=== PATIENT | female | born 1960 | race Caucasian/White ===

== ENCOUNTER 2016-05-22 08:53 | Inpatient (IN) ==
[2016-05-22 09:52] LABS: Bilirubin,Urine Negative (Negative); Blood,Urine Large (Negative); Clarity,Urine Cloudy (Clear); Color,Urine Red (Yellow); Glucose,Urine (UA) Normal (Normal); Ketones,Urine Negative (Negative); Leukocyte Esterase,Urine Large (Negative); Nitrite,Urine Negative (Negative); Protein,Urine 100 mg/dL (Neg-Trace); Specific Gravity,Urine 1.017 (1.010-1.025); Urobilinogen,Urine Normal (Normal)
[2016-05-22 10:00] LABS: Basophils % 0.4 %; Eosinophils # 0.1 K/mcL (0.0-0.6); Eosinophils % 1.2 %; Hematocrit 34.9 % (35.3-44.9); Hemoglobin 11.4 g/dL (11.5-15.4); Immature Granulocytes % 0.4 % (0-4); Immature Platelets 2.6 % (1.1-6.1); Lymphocytes # 1.8 K/mcL (0.6-4.6); Lymphocytes % 18.1 %; Mean Corpuscular HGB Conc 32.7 g/dL (31.6-35.5); Mean Corpuscular Hemoglobin 31.1 pg (28.0-33.3); Mean Corpuscular Volume 95.4 fL (83.0-100.0); Mean Platelet Volume 9.7 fL (9.4-12.4); Monocytes % 10.3 %; Neutrophils # 6.8 K/mcL (1.6-8.9); Platelet Count 298 K/mcL (140-400); Red Blood Count 3.66 M/mcL (3.82-4.97); Red Cell Distribution Width 13.8 % (11.5-14.5); Segmented Neutrophils % 69.6 %
[2016-05-22 10:05] LABS: INR 1.7
[2016-05-22 10:06] LABS: Prothrombin Time 18.5 Seconds (9.4-12.1)
[2016-05-22 10:08] LABS: Activated Partial Thrombo Time 44.2 Seconds (26.0-36.0)
[2016-05-22 10:21] LABS: BUN/Creatinine Ratio 25 (6-26); Blood Urea Nitrogen 19 mg/dL (7-20); Calcium 9.8 mg/dL (8.6-10.8); Carbon Dioxide 28 mEq/L (19-29); Chloride 102 mEq/L (98-109); Glucose 102 mg/dL (70-99); Osmolality,Calculated 288 (280-300); Potassium 3.9 mEq/L (3.5-4.5); Sodium 138 mEq/L (136-145); eGFR For African Americans > 60 (> 60); eGFR For Non-African Americans > 60 (> 60)
--- NOTE | 2016-05-22 11:10 | Emergency Department Note ---
Disposition Clinical Impression: Ureteral calculus, left Hydronephrosis Qualifiers: Hydronephrosis type: with renal calculous obstruction Qualified Code(s): N13.2 - Hydronephrosis with renal and ureteral calculous obstruction DVT (deep venous thrombosis) Qualifiers: DVT location: lower extremity Affected thrombotic vein of extremity: femoral Laterality: left Chronicity: acute Qualified Code(s): I82.412 - Acute embolism and thrombosis of left femoral vein Disposition: Admitted As Inpatient Referrals: Yassine Gunn MD [Primary Care Provider] - Forms: ED Satisfaction Letter Female Urogenital HPI - General Chief complaint: ED Extremity Problem,Nontraumatic Stated complaint: DVT, blood in urine/UTI Time Seen by Provider: 05/22/16 09:24 Source: patient Limitations: no limitations Nursing Notes Reviewed: Yes Vital Signs Reviewed: Yes - History of Present Illness Pt Subjective Complaint: other (hematuria) Onset (ago): hour(s) (3) Improves with: none Worsens with: none Urinary Symptoms: hematuria Associated symptoms: Denies: abdominal pain, nausea/vomiting, fever/chills, headaches, , rash, shortness of breath - Related Data Home Medications Medication Instructions Recorded Confirmed BuPROPion XL (24 HR) [Wellbutrin 150 mg PO QAM #0 10/29/14 01/27/16 Xl] Cholecalciferol (Vitamin D3) 50,000 unit PO QWEEK #0 10/29/14 01/27/16 [Vitamin D3] Multivitamin/Iron/Folic Acid 1 each PO QPM #0 10/29/14 01/27/16 [Centrum Complete Multivit Tab] Omeprazole [PriLOSEC] 20 mg PO BID #0 10/29/14 01/27/16 Pravastatin Sodium [Pravachol] 40 mg PO QPM #0 10/29/14 01/27/16 Baclofen 20 mg PO Q8HR PRN 01/11/16 01/27/16 Loratadine [Allergy Relief] 10 mg PO DAILY 01/11/16 01/27/16 Ondansetron ODT [Zofran ODT] 4 mg SL DAILY PRN 01/11/16 01/27/16 Polyethylene Glycol 1000 17 gm PO Q48H 01/11/16 01/27/16 [Polyethylene Glycol] Ranitidine HCl [Zantac] 150 mg PO HS 01/11/16 01/27/16 Naproxen [Naprosyn] 500 mg PO BID 01/27/16 01/27/16 Previous Rx's Medication Instructions Recorded Doxycycline 100 mg PO BID #180 capsule 01/29/16 Aspirin Enteric Coated [Aspirin EC] 325 mg PO BID tablet. 01/30/16 Docusate [Colace] 100 mg PO BID capsule 01/30/16 Ferrous Sulfate 325 mg PO BIDWM tablet 01/30/16 OxyCODONE/APAP 5/325 [Percocet 1 each PO Q4HR PRN #30 tablet 01/30/16 5/325 MG] Cephalexin 500 mg PO BID #14 tablet 05/18/16 Rivaroxaban [Xarelto] 1 dose PO AD 30 Days 05/18/16 Allergies Allergy/AdvReac Type Severity Reaction Status Date / Time dextromethorphan Allergy Difficulty Verified 01/27/16 02:18 [From NyQuil] Breathing doxylamine [From NyQuil] Allergy Difficulty Verified 01/27/16 02:18 Breathing iodine Allergy See Verified 01/27/16 02:18 Comments pregabalin [From Lyrica] Allergy Hallucinati Verified 01/27/16 02:18 ng pseudoephedrine [From NyQuil] Allergy Difficulty Verified 01/27/16 02:18 Breathing codeine AdvReac Nausea Verified 01/27/16 02:18 All systems ED: reviewed and negative except as stated. Constitutional: Denies: fever, chills, weakness Gastrointestinal: Denies: abdominal pain, nausea, vomiting Past Medical History - Past Medical History Source: patient, old records reviewed, obtained from family, nursing notes reviewed Medical history: Reports: GERD, hyperlipidemia, kidney stones, osteoporosis, other Surgical history: Reports: cholecystectomy, other Psychiatric history: Reports: anxiety, depression - Social History Smoking Status: Former smoker Smokeless Tobacco Status: No Alcohol use: Reports: none Drug use: Reports: none Physical Exam - General Limitations: no limitations General appearance: alert - Head Head exam: atraumatic, normocephalic, normal inspection - Eye Eye exam: Present: normal appearance, PERRL, EOMI - Expanded Eye Exam Pupils: Left: reactive - ENT ENT exam: normal exam, normal oropharynx, mucous membranes moist - Expanded ENT Exam External ear exam: Present: normal external inspection Mouth exam: Present: normal external inspection Teeth exam: Present: normal inspection Throat exam: Present: normal inspection - Neck Neck exam: Present: normal inspection, full ROM, trachea midline - Chest Chest inspection: Present: normal inspection, symmetric chest wall rise - Respiratory Respiratory exam: Present: normal lung sounds bilaterally - Cardiovascular Cardiovascular exam: Present: regular rate, normal rhythm, normal heart sounds - Abdominal Exam Abdominal exam: Present: soft, Non-Tender. Absent: tenderness, distention, guarding, rebound, rigidity - Extremities Exam Extremities exam: Present: normal inspection, full ROM. Absent: tenderness, pedal edema - Expanded Upper Extremity Exam Shoulder exam: Present: normal inspection, full ROM Arm exam: Present: normal inspection, full ROM Elbow exam: Present: normal inspection, full ROM Forearm/Wrist exam: Present: normal inspection, full ROM Hand exam: Present: normal inspection, full ROM Vascular exam: Normal: capillary refill, radial pulse - Expanded Lower Extremity Exam Hip/Pelvis exam: Present: normal inspection, full ROM Upper leg exam: Present: normal inspection, full ROM Knee exam: Present: normal inspection, full ROM Lower leg exam: Present: other (left LLE 2+ pitting edema) Ankle exam: Present: normal inspection, full ROM Foot/toe exam: Present: normal inspection, full ROM Neurovascular/Tendon exam: Absent: motor deficit, sensory deficit, tendon deficit - Back Exam Back exam: Present: normal inspection, full ROM. Absent: tenderness - Neurological Exam Neurological exam: Present: alert, oriented X3 - Expanded Neurological Exam Patient oriented to: Present: person, place, time Coma Scale Eye Opening: Spontaneous Coma Scale Motor Response: Obeys Commands Coma Scale Verbal Response: Oriented Coma Scale Total: 15 - Psychiatric Psychiatric exam: Present: normal affect, normal mood - Skin Skin exam: Present: warm, dry, intact, normal color Course - Consultations Consultation #1: dr. elizondo keep NPO, ok to continue Xarelto Time: 11:11 Vital Signs Temperature 97.5 F L 05/22/16 08:58 Pulse Rate 94 05/22/16 08:58 Respiratory Rate 18 05/22/16 08:58 Blood Pressure 99/68 05/22/16 08:58 O2 Sat by Pulse Oximetry 98 05/22/16 08:58 Temperature 97.5 F L 05/22/16 08:58 Pulse Rate 94 05/22/16 08:58 Respiratory Rate 18 05/22/16 08:58 Blood Pressure 99/68 05/22/16 08:58 O2 Sat by Pulse Oximetry 98 05/22/16 08:58 Oxygen Delivery Oxygen Delivery Room Air Urogenital-Female - Differential Diagnosis Likely: urinary tract infection, ruptured ovarian cyst, cystitis, dysmenorrhea, ovarian torsion - Medical Records Medical records reviewed: Yes I reviewed the patient's medical records. - Lab Data Lab results reviewed: Yes I reviewed the patient's lab results. Result diagrams: 05/22/16 09:45 05/22/16 09:45 Lab Results 05/22/16 05/22/16 05/22/16 Range/Units 09:37 09:45 09:45 WBC 9.7 (4.3-11.1) K/mcL RBC 3.66 L (3.82-4.97) M/mcL Hgb 11.4 L D (11.5-15.4) g/dL Hct 34.9 L (35.3-44.9) % MCV 95.4 (83.0-100.0) fL MCH 31.1 (28.0-33.3) pg MCHC 32.7 (31.6-35.5) g/dL RDW 13.8 (11.5-14.5) % Plt Count 298 (140-400) K/mcL MPV 9.7 (9.4-12.4) fL Immature Gran % 0.4 (0-4) % Seg Neutrophils % 69.6 % Lymphocytes % 18.1 % Monocytes % 10.3 % Eosinophils % 1.2 % Basophils % 0.4 % Neutrophils # 6.8 (1.6-8.9) K/mcL Lymphocytes # 1.8 (0.6-4.6) K/mcL Monocytes # 1.0 (0.0-1.3) K/mcL Eosinophils # 0.1 (0.0-0.6) K/mcL Basophils # 0.0 (0.0-0.2) K/mcL Immature Plt Fraction 2.6 (1.1-6.1) % PT 18.5 H D (9.4-12.1) Seconds INR 1.7 D APTT 44.2 H (26.0-36.0) Seconds Sodium (136-145) mEq/L Potassium (3.5-4.5) mEq/L Chloride (98-109) mEq/L Carbon Dioxide (19-29) mEq/L BUN (7-20) mg/dL Creatinine (0.57-1.11) mg/dL Est GFR ( Amer) (> 60) Est GFR (Non-Af Amer) (> 60) BUN/Creatinine Ratio (6-26) Glucose (70-99) mg/dL Calculated Osmolality (280-300) Calcium (8.6-10.8) mg/dL Ur Specimen Adequacy See below A Urine Color Red A (Yellow) Urine Clarity Cloudy A (Clear) Urine pH 6.0 (5.0-8.0) pH Units Ur Specific Sylva 1.017 (1.010-1.025) Urine Protein 100 H (Neg-Trace) mg/dL Urine Glucose (UA) Normal (Normal) mg/dL Urine Ketones Negative (Negative) mg/dL Urine Blood Large H (Negative) Urine Nitrite Negative (Negative) Urine Bilirubin Negative (Negative) Urine Urobilinogen Normal (Normal) mg/dL Ur Leukocyte Esterase Large H (Negative) Ur Culture Indicated? YES A (NO) 05/22/16 Range/Units 09:45 WBC (4.3-11.1) K/mcL RBC (3.82-4.97) M/mcL Hgb (11.5-15.4) g/dL Hct (35.3-44.9) % MCV (83.0-100.0) fL MCH (28.0-33.3) pg MCHC (31.6-35.5) g/dL RDW (11.5-14.5) % Plt Count (140-400) K/mcL MPV (9.4-12.4) fL Immature Gran % (0-4) % Seg Neutrophils % % Lymphocytes % % Monocytes % % Eosinophils % % Basophils % % Neutrophils # (1.6-8.9) K/mcL Lymphocytes # (0.6-4.6) K/mcL Monocytes # (0.0-1.3) K/mcL Eosinophils # (0.0-0.6) K/mcL Basophils # (0.0-0.2) K/mcL Immature Plt Fraction (1.1-6.1) % PT (9.4-12.1) Seconds INR APTT (26.0-36.0) Seconds Sodium 138 (136-145) mEq/L Potassium 3.9 (3.5-4.5) mEq/L Chloride 102 (98-109) mEq/L Carbon Dioxide 28 (19-29) mEq/L BUN 19 (7-20) mg/dL Creatinine 0.75 (0.57-1.11) mg/dL Est GFR ( Amer) > 60 (> 60) Est GFR (Non-Af Amer) > 60 (> 60) BUN/Creatinine Ratio 25 (6-26) Glucose 102 H (70-99) mg/dL Calculated Osmolality 288 (280-300) Calcium 9.8 (8.6-10.8) mg/dL Ur Specimen Adequacy Urine Color (Yellow) Urine Clarity (Clear) Urine pH (5.0-8.0) pH Units Ur Specific Sylva (1.010-1.025) Urine Protein (Neg-Trace) mg/dL Urine Glucose (UA) (Normal) mg/dL Urine Ketones (Negative) mg/dL Urine Blood (Negative) Urine Nitrite (Negative) Urine Bilirubin (Negative) Urine Urobilinogen (Normal) mg/dL Ur Leukocyte Esterase (Negative) Ur Culture Indicated? (NO) - Radiology Data Radiology results reviewed: Yes I reviewed the patient's radiology results.
--- NOTE | 2016-05-22 12:29 | Urology - Consult Note ---
Date of Encounter: 05/22/16 Time of Encounter: 12:26 - Assessment and Plan (1) Hydronephrosis Current Visit: Yes Status: Acute Assessment and plan: From a left ureteral stone. Serum creatinine normal. Will resolve after stent placement. Qualifiers: Hydronephrosis type: with renal calculous obstruction Qualified Code(s): N13.2 - Hydronephrosis with renal and ureteral calculous obstruction (2) Ureteral calculus, left Current Visit: Yes Status: Acute Assessment and plan: Patient will need to undergo cystoscopy and left ureteral stent placement which we will perform tomorrow. Urology CN:HPI Consult date: 05/22/16 Reason for consult Urology: Hydronephrosis Requesting physician: Daniel Metzger History of present illness: Winsome is a 55-year-old female well-known to urology for multiple sclerosis and urinary incontinence issues. Patient is a history of kidney stones. She presents to the emergency Department today secondary to gross hematuria after starting blood thinning medication for recent DVT. Patient was found on CT scan to have a mid ureteral left 1 cm stone. On review of prior x-rays the stone was present at least back to January. Patient denies any flank pain. No fevers. Past Med Surg Social Fam HX - Past Medical History Medical history: GERD, hyperlipidemia, kidney stones, osteoporosis, other Psychiatric history: anxiety, depression - Past Surgical History Surgical History: cholecystectomy, other - Social History Smoking Status: Former smoker Smokeless Tobacco Status: No Alcohol use: none Drug use: none - Family History Mother Living Status: Hx Family Cardiac Disorders: Yes Father Family Member Ethnicity: Non- Living Status: Hx Family Cardiac Disorders: Yes (heart diease, [place],) Hx Family Respiratory Disorders: Yes (copd) Hx Family Cancer: Yes (stomach) Hx Family GI Disorders: Yes Hx Family Endocrine Disorder: No Hx Family Neuromuscular Disorders: No Hx Family Neurologic Disorders: No Hx Family HEENT Disorders: No Hx Family Autoimmune Disorders: No Son Living Status: Still Living Hx Family Cardiac Disorders: No Hx Family Respiratory Disorders: No Hx Family Cancer: No Hx Family GI Disorders: No Hx Family Endocrine Disorder: No Hx Family Neuromuscular Disorders: No Hx Family Neurologic Disorders: No Hx Family HEENT Disorders: No Hx Family Autoimmune Disorders: No Medications and Allergies BuPROPion XL (24 HR) [Wellbutrin Xl] 150 mg PO QAM #0 10/29/14 [History] Cholecalciferol (Vitamin D3) [Vitamin D3] 50,000 unit PO QWEEK #0 10/29/14 [ History] Multivitamin/Iron/Folic Acid [Centrum Complete Multivit Tab] 1 each PO QPM #0 10/29/14 [History] Omeprazole [PriLOSEC] 20 mg PO BID #0 10/29/14 [History] Pravastatin Sodium [Pravachol] 40 mg PO QPM #0 10/29/14 [History] Baclofen 20 mg PO Q8HR PRN 01/11/16 [History] Loratadine [Allergy Relief] 10 mg PO DAILY 01/11/16 [History] Ondansetron ODT [Zofran ODT] 4 mg SL DAILY PRN 01/11/16 [History] Polyethylene Glycol 1000 [Polyethylene Glycol] 17 gm PO Q48H 01/11/16 [History] Ranitidine HCl [Zantac] 150 mg PO HS 01/11/16 [History] Naproxen [Naprosyn] 500 mg PO BID 01/27/16 [History] Doxycycline 100 mg PO BID #180 capsule 01/29/16 [Rx] Aspirin Enteric Coated [Aspirin EC] 325 mg PO BID tablet. 01/30/16 [Rx] Docusate [Colace] 100 mg PO BID capsule 01/30/16 [Rx] Ferrous Sulfate 325 mg PO BIDWM tablet 01/30/16 [Rx] OxyCODONE/APAP 5/325 [Percocet 5/325 MG] 1 each PO Q4HR PRN #30 tablet 01/30/16 [Rx] Cephalexin 500 mg PO BID #14 tablet 05/18/16 [Rx] Rivaroxaban [Xarelto] 1 dose PO AD 30 Days 05/18/16 [Rx] Allergies dextromethorphan [From NyQuil] Allergy (Verified 01/27/16 02:18) Difficulty Breathing doxylamine [From NyQuil] Allergy (Verified 01/27/16 02:18) Difficulty Breathing iodine Allergy (Verified 01/27/16 02:18) See Comments "turns skin into poison" pregabalin [From Lyrica] Allergy (Verified 01/27/16 02:18) Hallucinating pseudoephedrine [From NyQuil] Allergy (Verified 01/27/16 02:18) Difficulty Breathing codeine Adverse Reaction (Verified 01/27/16 02:18) Nausea Review of Systems - Constitutional no chills - EENT Nose, mouth and throat: no dizziness - Cardiovascular no chest pain - Respiratory no cough - Gastrointestinal no abdominal pain - Musculoskeletal no back pain - Integumentary no erythema Exam Initial Vital Signs Temp Pulse Resp BP Pulse Ox 97.5 F L 94 18 99/68 98 05/22/16 08:58 05/22/16 08:58 05/22/16 08:58 05/22/16 08:58 05/22/16 08:58 - General physical appearance Present: well developed - Eyes Present: PERRL - ENT Present: normal nares - Neck Present: no masses - Respiratory Present: normal respiratory effort - Cardiovascular Cardiovascular exam IM: RRR Urology Results - Labs 05/22/16 09:45 05/22/16 09:45 Abnormal lab results RBC 3.66 M/mcL (3.82-4.97) L 05/22/16 09:45 Hgb 11.4 g/dL (11.5-15.4) L D 05/22/16 09:45 Hct 34.9 % (35.3-44.9) L 05/22/16 09:45 PT 18.5 Seconds (9.4-12.1) H D 05/22/16 09:45 APTT 44.2 Seconds (26.0-36.0) H 05/22/16 09:45 Glucose 102 mg/dL (70-99) H 05/22/16 09:45 Ur Specimen Adequacy See below A 05/22/16 09:37 Urine Color Red (Yellow) A 05/22/16 09:37 Urine Clarity Cloudy (Clear) A 05/22/16 09:37 Urine Protein 100 mg/dL (Neg-Trace) H 05/22/16 09:37 Urine Blood Large (Negative) H 05/22/16 09:37 Ur Leukocyte Esterase Large (Negative) H 05/22/16 09:37 Ur Culture Indicated? YES (NO) A 05/22/16 09:37 Diabetes panel 05/22/16 Range/Units 09:45 Sodium 138 (136-145) mEq/L Potassium 3.9 (3.5-4.5) mEq/L Chloride 102 (98-109) mEq/L Carbon Dioxide 28 (19-29) mEq/L BUN 19 (7-20) mg/dL Creatinine 0.75 (0.57-1.11) mg/dL Glucose 102 H (70-99) mg/dL Calcium 9.8 (8.6-10.8) mg/dL Calcium panel 05/22/16 Range/Units 09:45 Calcium 9.8 (8.6-10.8) mg/dL Pituitary panel 05/22/16 Range/Units 09:45 Sodium 138 (136-145) mEq/L Potassium 3.9 (3.5-4.5) mEq/L Chloride 102 (98-109) mEq/L Carbon Dioxide 28 (19-29) mEq/L BUN 19 (7-20) mg/dL Creatinine 0.75 (0.57-1.11) mg/dL Glucose 102 H (70-99) mg/dL Calcium 9.8 (8.6-10.8) mg/dL Adrenal panel 05/22/16 Range/Units 09:45 Sodium 138 (136-145) mEq/L Potassium 3.9 (3.5-4.5) mEq/L Chloride 102 (98-109) mEq/L Carbon Dioxide 28 (19-29) mEq/L BUN 19 (7-20) mg/dL Creatinine 0.75 (0.57-1.11) mg/dL Glucose 102 H (70-99) mg/dL Calcium 9.8 (8.6-10.8) mg/dL All other labs normal. - Imaging CT scan - abdomen: image reviewed CT scan - pelvis: image reviewed Consult Discharge Plan - Plan Referrals: Yassine Gunn MD [Primary Care Provider] -
[2016-05-22] MEDS ORDERED: Acetaminophen 325 MG TABLET PO PRN (13:52)
[2016-05-22] MEDS ORDERED: Naloxone 0.4 MG/ML INJ IVP PRN (13:52)
[2016-05-22] MEDS ORDERED: Ondansetron ODT 4 MG TAB.RAPDIS SL PRN (14:02)
[2016-05-22] MEDS ORDERED: Baclofen 10 MG TABLET PO PRN (14:02)
--- NOTE | 2016-05-22 14:23 | Internal Med History&Physical ---
<Noemy Wang E - Last Filed: 05/22/16 20:03> Internal Medicine - H&P: HPI History of present illness: Ms. Obrien is a 55 year old female Internal Medicine - H&P: Meds BuPROPion XL (24 HR) [Wellbutrin Xl] 150 mg PO QAM #0 10/29/14 [History] Cholecalciferol (Vitamin D3) [Vitamin D3] 50,000 unit PO GUTIERREZ #0 10/29/14 [ History] Multivitamin/Iron/Folic Acid [Centrum Complete Multivit Tab] 1 each PO QPM #0 10/29/14 [History] Omeprazole [PriLOSEC] 20 mg PO BID #0 10/29/14 [History] Pravastatin Sodium [Pravachol] 40 mg PO QPM #0 10/29/14 [History] Baclofen 20 mg PO Q8HR PRN 01/11/16 [History] Loratadine [Allergy Relief] 10 mg PO DAILY 01/11/16 [History] Ondansetron ODT [Zofran ODT] 4 mg SL DAILY PRN 01/11/16 [History] Polyethylene Glycol 1000 [Polyethylene Glycol] 17 gm PO Q48H 01/11/16 [History] Ranitidine HCl [Zantac] 150 mg PO HS 01/11/16 [History] Doxycycline 100 mg PO BID #180 capsule 01/29/16 [Rx] Docusate [Colace] 100 mg PO BID capsule 01/30/16 [Rx] Ferrous Sulfate 325 mg PO BIDWM tablet 01/30/16 [Rx] Cephalexin 500 mg PO BID #14 tablet 05/18/16 [Rx] Rivaroxaban [Xarelto] 15 mg PO BID 05/22/16 [History] Allergies dextromethorphan [From NyQuil] Allergy (Verified 01/27/16 02:18) Difficulty Breathing doxylamine [From NyQuil] Allergy (Verified 01/27/16 02:18) Difficulty Breathing iodine Allergy (Verified 01/27/16 02:18) See Comments "turns skin into poison" pregabalin [From Lyrica] Allergy (Verified 01/27/16 02:18) Hallucinating pseudoephedrine [From NyQuil] Allergy (Verified 01/27/16 02:18) Difficulty Breathing codeine Adverse Reaction (Verified 01/27/16 02:18) Nausea All Systems PM: A 10-system review of systems was performed and is negative for pertinent findings except as documented above in the HPI. - Constitutional Vitals: Temp Pulse Resp BP Pulse Ox 98.2 F 82 16 96/56 95 05/22/16 19:46 05/22/16 19:46 05/22/16 19:46 05/22/16 19:46 05/22/16 19:46 Internal Med - H&P Results - Labs CBC & Chem 7: 05/22/16 09:45 05/22/16 09:45 - Attending Attestation Patient seen and examined, agree with assessment and plan of BART Garner. Patient with MS, recent DVT on xarelto, nephrolithiasis and UTI. Appreciate urology assistance with managing renal stone. Treat UTI and continue xarelto for DVT treatment. <Ivone Garner M - Last Filed: 05/22/16 22:42> Date of Encounter: 05/22/16 Time of Encounter: 14:16 Assessment and Plan (1) Ureteral calculus, left Current visit: Yes Status: Acute CT Abd/Pelvis showed moderate to severe obstructive uropathy in the left renal collecting system due to an 11mm calculus in the proximal to mid left ureter. Urology, Dr. Bills consulted and plan Cystoscopy with left ureteral stent placement tomorrow. NPO after midnight for procedure. IV fluids 0.9NS at 100mL/hr. (2) UTI (urinary tract infection) Current visit: Yes Status: Suspected Patient was diagnosed with a UTI during previous visit to ED on 05/18 and started on Keflex, however Cultures had no growth. Patient with obstructive uropathy due to stone. Will treat with Cefepime as previous UTIs grew pseudomonas. Qualifiers: Urinary tract infection type: acute cystitis Hematuria presence: with hematuria Qualified Code(s): N30.01 - Acute cystitis with hematuria (3) Multiple sclerosis Current visit: No Status: Chronic Patient with diagnosis of progressive multiple sclerosis with sequela of urinary retention, paresthesias (tingling in right arm), weakness, and gait disturbance. Patient follows with Dr. David in Neurology, but is not on any medication for her MS. Patient also has difficulty with fine motor skills and ADLs with feeding herself. PT/OT ordered to assist planning accommodations for patient while hospitalized. (4) Pressure ulcer of coccygeal region, stage 3 Current visit: No Status: Acute Patient follows with Wound Care as an outpatient. Consult to Wound care team. (5) Hydronephrosis Current visit: Yes Status: Acute CT Abd/Pelvis showed moderate to severe obstructive uropathy in the left renal collecting system due to an 11mm calculus in the proximal to mid left ureter. Urology, Dr. Bills consulted and plan Cystoscopy with left ureteral stent placement tomorrow. NPO after midnight for procedure. IV fluids 0.9NS at 100mL/hr. Cefepime 2g TID Qualifiers: Hydronephrosis type: with renal calculous obstruction Qualified Code(s): N13.2 - Hydronephrosis with renal and ureteral calculous obstruction (6) DVT (deep venous thrombosis) Current visit: Yes Status: Acute Patient recently diagnosed with LLE DVT on 05/18 and started on Xarelto. Patient with hematuria related to kidney stone and decrease in Hgb from 12.9 on 05/18 to 11.4 today. No indication for transfusion. Patient denies any other symptoms of bleeding. Continue Xarelto. Check CBC and coags tomorrow morning. Qualifiers: DVT location: lower extremity Affected thrombotic vein of extremity: femoral Laterality: left Chronicity: acute Qualified Code(s): I82.412 - Acute embolism and thrombosis of left femoral vein (7) DVT prophylaxis Current visit: Yes Status: Acute Up to chair BID. Patient with acute DVT in LLE, on Xarelto anti-embolic stocking to right leg Continue Xarelto. Internal Medicine - H&P: HPI Chief complaint: blood in the urine Admitted From: Emergency Dept Plans for Post Hospital Care: Transfer Care Home Facility History of present illness: Ms. Obrien is a 55 year old female with multiple sclerosis, hyperlipidemia, acid reflux, stage III pressure ulcer, history of kidney stones, recent diagnosis of left lower extremity DVT started on Zaroxolyn May 18 who was brought to the emergency department today by her family with concerns for mild confusion and increased swelling in the left lower extremity. Patient's family reports that in the middle the night last night she woke up and said get these dogs off me, however there are no dogs and house. She and oriented however confused from time to time, which is unlike her according to the family. Patient was diagnosed with a DVT in her left lower extremity on Friday, and the family reports that her swelling seemed to be worse which coupled with the confusion caused them to bring her back to the emergency department. They report that she has had blood in her urine since Friday. Patient denies any pain, lightheadedness, or dizziness, shortness of breath, palpitations. Patient denies any pain or burning with urination, denies any chills, sweats. Patient's brother reports patient has been running a low-grade fever. Evaluation in the emergency department included a CT of the abdomen and pelvis which revealed a moderate to severe obstructive uropathy within the left renal collecting system due to an 11 mm calculus in the proximal to mid left ureter. PT was 18.5, INR was within normal limits at 1.7, PTT was elevated at 44.2, consistent with patient's use of Xarelto. Patient was mildly anemic with hemoglobin of 11.4, which is down from her previous result of 12.9 on Friday. Urology was consult said, Dr. Bills saw the patient and plans for cystoscopy with left ureteral stent placement tomorrow. Patient was given a dose of ceftriaxone for presumed UTI. On exam, patient was alert and oriented, she was quiet and did not elaborate in her answers to my questions. She had mild tenderness over her bladder. Left lower extremity was edematous compared to right, but without tenderness, or erythema. She had a stage III decubitus ulcer on her right coccyx area, she is following with wound care as an outpatient for this. Heart has regular rate and rhythm, lungs are clear bilaterally to auscultation. Past Med Surg Social Fam HX - Past Medical History Medical history: GERD, hyperlipidemia, kidney stones, osteoporosis, other ( Progressive Multiple Sclerosis) Psychiatric history: anxiety, depression - Past Surgical History Surgical History: cholecystectomy, hip replacement, other (Ureteral stents) - Social History Smoking Status: Former smoker (27 Pack year history) Smokeless Tobacco Status: No Alcohol use: none Drug use: none - Family History Mother Living Status: Hx Family Cardiac Disorders: Yes Father Family Member Ethnicity: Non- Living Status: Hx Family Cardiac Disorders: Yes (heart diease, [place],) Hx Family Respiratory Disorders: Yes (copd) Hx Family Cancer: Yes (stomach) Hx Family GI Disorders: Yes Hx Family Endocrine Disorder: No Hx Family Neuromuscular Disorders: No Hx Family Neurologic Disorders: No Hx Family HEENT Disorders: No Hx Family Autoimmune Disorders: No Son Living Status: Still Living Hx Family Cardiac Disorders: No Hx Family Respiratory Disorders: No Hx Family Cancer: No Hx Family GI Disorders: No Hx Family Endocrine Disorder: No Hx Family Neuromuscular Disorders: No Hx Family Neurologic Disorders: No Hx Family HEENT Disorders: No Hx Family Autoimmune Disorders: No Brother Hx Family Cancer: Yes All Systems PM: A 10-system review of systems was performed and is negative for pertinent findings except as documented above in the HPI. - Constitutional Constitutional: fever(s), no chills, no night sweats - Cardiovascular Cardiovascular ROS IM: no chest pain, no diaphoresis, no dyspnea, no lightheadedness, no palpitations, no syncope - Respiratory Respiratory: no cough, no dyspnea, no wheezing, no excessive phlegm production - Gastrointestinal Gastrointestinal: no abdominal pain, no diarrhea, no hematemesis, no hematochezia, no melena, no nausea, no vomiting - Genitourinary Genitourinary: difficulty urinating (patient reports urinary retention), hematuria, no change in urinary stream, no dysuria, no flank pain - Musculoskeletal Musculoskeletal ROS IM: tingling (right arm - chronic), no numbness - Integumentary Integumentary IM: no rash, no unusual bruising - Neurological Neurological ROS: tingling (right arm - chronic), weakness (generalized - chronic ), no confusion, no convulsions, no focal weakness, no numbness, no tremor(s) - Hematologic/Lymphatic Hematologic/Lymphatic: easy bleeding - Constitutional Vitals: Temp Pulse Resp BP Pulse Ox 97.5 F L 73 18 119/79 99 05/22/16 08:58 05/22/16 12:59 05/22/16 13:58 05/22/16 13:58 05/22/16 12:59 General appearance: Present: A&O X 3, pleasant, no acute distress - Head Head exam: Present: atraumatic, normocephalic - Eye Eye exam: Present: PERRL, conjuntiva pink, sclera anicteric Pupils: Present: PERRL - Neck Neck exam general surgery: Present: supple, trachea midline. Absent: lymphadenopathy - Respiratory Respiratory exam: Present: CTAB. Absent: accessory muscle use, rales, rhonchi, wheezes - Cardiovascular Cardiovascular exam: Present: RRR, +S1, +S2. Absent: diastolic murmur, gallop, rubs, systolic murmur - GI/Abdominal GI/Abdominal exam: Present: normal bowel sounds, soft, tenderness (mild tenderness over bladder), no peritoneal signs. Absent: distended - Extremities Exam Extremities exam: Present: warm, radial pulses palpable and symetrical. Absent : calf tenderness, cyanotic Additional comments: LLE edema, with noticeable difference in Left thigh swelling greater than right. - Neurological Exam Neurological exam: Present: alert, oriented X3, strengths equal and symetr throughout (Generalized weakness - strength 4/5 in BUE). Absent: facial droop, speech deficit - Expanded Neurological Exam Neuro motor strength exam: LUE: 4, RUE: 4, LLE: 4, RLE: 4 - Skin Skin exam: Present: dry, pallor Additional comments: stage 3 decubitus ulcer on right coccyx area Internal Med - H&P Results - Labs CBC & Chem 7: 05/22/16 09:45 05/22/16 09:45 Labs: All Lab Results (24 Hours) 05/22/16 05/22/16 05/22/16 Range/Units 09:37 09:45 09:45 WBC 9.7 (4.3-11.1) K/mcL RBC 3.66 L (3.82-4.97) M/mcL Hgb 11.4 L D (11.5-15.4) g/dL Hct 34.9 L (35.3-44.9) % MCV 95.4 (83.0-100.0) fL MCH 31.1 (28.0-33.3) pg MCHC 32.7 (31.6-35.5) g/dL RDW 13.8 (11.5-14.5) % Plt Count 298 (140-400) K/mcL MPV 9.7 (9.4-12.4) fL Immature Gran % 0.4 (0-4) % Seg Neutrophils % 69.6 % Lymphocytes % 18.1 % Monocytes % 10.3 % Eosinophils % 1.2 % Basophils % 0.4 % Neutrophils # 6.8 (1.6-8.9) K/mcL Lymphocytes # 1.8 (0.6-4.6) K/mcL Monocytes # 1.0 (0.0-1.3) K/mcL Eosinophils # 0.1 (0.0-0.6) K/mcL Basophils # 0.0 (0.0-0.2) K/mcL Immature Plt Fraction 2.6 (1.1-6.1) % PT 18.5 H D (9.4-12.1) Seconds INR 1.7 D APTT 44.2 H (26.0-36.0) Seconds Sodium (136-145) mEq/L Potassium (3.5-4.5) mEq/L Chloride (98-109) mEq/L Carbon Dioxide (19-29) mEq/L BUN (7-20) mg/dL Creatinine (0.57-1.11) mg/dL Est GFR ( Amer) (> 60) Est GFR (Non-Af Amer) (> 60) BUN/Creatinine Ratio (6-26) Glucose (70-99) mg/dL Calculated Osmolality (280-300) Calcium (8.6-10.8) mg/dL Ur Specimen Adequacy See below A Urine Color Red A (Yellow) Urine Clarity Cloudy A (Clear) Urine pH 6.0 (5.0-8.0) pH Units Ur Specific [place] 1.017 (1.010-1.025) Urine Protein 100 H (Neg-Trace) mg/dL Urine Glucose (UA) Normal (Normal) mg/dL Urine Ketones Negative (Negative) mg/dL Urine Blood Large H (Negative) Urine Nitrite Negative (Negative) Urine Bilirubin Negative (Negative) Urine Urobilinogen Normal (Normal) mg/dL Ur Leukocyte Esterase Large H (Negative) Ur Culture Indicated? YES A (NO) 05/22/16 Range/Units 09:45 WBC (4.3-11.1) K/mcL RBC (3.82-4.97) M/mcL Hgb (11.5-15.4) g/dL Hct (35.3-44.9) % MCV (83.0-100.0) fL MCH (28.0-33.3) pg MCHC (31.6-35.5) g/dL RDW (11.5-14.5) % Plt Count (140-400) K/mcL MPV (9.4-12.4) fL Immature Gran % (0-4) % Seg Neutrophils % % Lymphocytes % % Monocytes % % Eosinophils % % Basophils % % Neutrophils # (1.6-8.9) K/mcL Lymphocytes # (0.6-4.6) K/mcL Monocytes # (0.0-1.3) K/mcL Eosinophils # (0.0-0.6) K/mcL Basophils # (0.0-0.2) K/mcL Immature Plt Fraction (1.1-6.1) % PT (9.4-12.1) Seconds INR APTT (26.0-36.0) Seconds Sodium 138 (136-145) mEq/L Potassium 3.9 (3.5-4.5) mEq/L Chloride 102 (98-109) mEq/L Carbon Dioxide 28 (19-29) mEq/L BUN 19 (7-20) mg/dL Creatinine 0.75 (0.57-1.11) mg/dL Est GFR ( Amer) > 60 (> 60) Est GFR (Non-Af Amer) > 60 (> 60) BUN/Creatinine Ratio 25 (6-26) Glucose 102 H (70-99) mg/dL Calculated Osmolality 288 (280-300) Calcium 9.8 (8.6-10.8) mg/dL Ur Specimen Adequacy Urine Color (Yellow) Urine Clarity (Clear) Urine pH (5.0-8.0) pH Units Ur Specific [place] (1.010-1.025) Urine Protein (Neg-Trace) mg/dL Urine Glucose (UA) (Normal) mg/dL Urine Ketones (Negative) mg/dL Urine Blood (Negative) Urine Nitrite (Negative) Urine Bilirubin (Negative) Urine Urobilinogen (Normal) mg/dL Ur Leukocyte Esterase (Negative) Ur Culture Indicated? (NO) - Diagnostic Studies CT scan - abdomen Additional comments: Abdomen/Pelvis CT 05/22/16 10:13 IMPRESSION: Moderate to severe obstructive uropathy left renal collecting system secondary to 11 mm calculus within the proximal to mid left ureter. Bilateral nonobstructing renal calculi. Healing left-sided rib fractures. D/ / 05/22/2016 11:12:29 Raza Colvin MD / lewis Interpreting Provider: Raza Colvin MD
[2016-05-22] MEDS: Cholecalciferol (D-3) 1,000 UNIT TABLET PO SCH (15:23)
[2016-05-22] MEDS: Cefepime HCl 2,000 MG in D5% in Water (Mini-Bag+) 100 ML IVPB SCH (17:42)
[2016-05-22] MEDS: 0.9 % Sodium Chloride 1,000 ML IVC SCH (17:42)
[2016-05-22] MEDS ORDERED: traZODone 50 MG TABLET PO PRN (19:02)
[2016-05-22] MEDS ORDERED: Famotidine 20 MG TABLET PO SCH (21:00)
--- NOTE | 2016-05-22 21:20 | Anesthesia Evaluation PreOp ---
Date of Encounter: 05/22/16 Time of Encounter: 21:17 - Past History Planned Operation: Cystoscopy, Left Ureteral Stent Placement Cardiac History: Hyperlipidemia Pulmonary History: Former smoker (quit 4 months ago, smoked for 27 years) [employer]ISHING UT[employer] PERSON History: Other (multiple sclerosis) Other Medical History: Renal (kidney stones), GERD, Other (anxiety/depression, pressure ulcer coccygeal region) Anesthesia History: No Prior Anesthetic Complications, Past Anesthesia Alcohol Use: none Drug use: none Medications and Allergies BuPROPion XL (24 HR) [Wellbutrin Xl] 150 mg PO QAM #0 10/29/14 [History] Cholecalciferol (Vitamin D3) [Vitamin D3] 50,000 unit PO GUTIERREZ #0 10/29/14 [ History] Multivitamin/Iron/Folic Acid [Centrum Complete Multivit Tab] 1 each PO QPM #0 10/29/14 [History] Omeprazole [PriLOSEC] 20 mg PO BID #0 10/29/14 [History] Pravastatin Sodium [Pravachol] 40 mg PO QPM #0 10/29/14 [History] Baclofen 20 mg PO Q8HR PRN 01/11/16 [History] Loratadine [Allergy Relief] 10 mg PO DAILY 01/11/16 [History] Ondansetron ODT [Zofran ODT] 4 mg SL DAILY PRN 01/11/16 [History] Polyethylene Glycol 1000 [Polyethylene Glycol] 17 gm PO Q48H 01/11/16 [History] Ranitidine HCl [Zantac] 150 mg PO HS 01/11/16 [History] Doxycycline 100 mg PO BID #180 capsule 01/29/16 [Rx] Docusate [Colace] 100 mg PO BID capsule 01/30/16 [Rx] Ferrous Sulfate 325 mg PO BIDWM tablet 01/30/16 [Rx] Cephalexin 500 mg PO BID #14 tablet 05/18/16 [Rx] Rivaroxaban [Xarelto] 15 mg PO BID 05/22/16 [History] Allergies dextromethorphan [From NyQuil] Allergy (Verified 01/27/16 02:18) Difficulty Breathing doxylamine [From NyQuil] Allergy (Verified 01/27/16 02:18) Difficulty Breathing iodine Allergy (Verified 01/27/16 02:18) See Comments "turns skin into poison" pregabalin [From Lyrica] Allergy (Verified 01/27/16 02:18) Hallucinating pseudoephedrine [From NyQuil] Allergy (Verified 01/27/16 02:18) Difficulty Breathing codeine Adverse Reaction (Verified 01/27/16 02:18) Nausea - Meds/Allergy Pre-op Review Medications Reviewed: Yes Allergies Reviewed: Yes Beta Blockers on Current Med List: No Anesthesia Results - Labs 05/22/16 09:45 05/22/16 09:45 - Imaging EKG: report reviewed (01/27/2016 SR, NSST abnormality) Anesthesia Exam Vital Signs/O2 Sat, Most Current Temp Pulse Resp BP Pulse Ox 98.3 F 87 16 99/67 95 05/22/16 20:55 05/22/16 20:55 05/22/16 20:55 05/22/16 20:55 05/22/16 20:55 Height: 5'1''/1.55 m Weight: 101 lbs/46 kg NPO (# of Hours): 8 Pain Scale: 3 Pain Scale Used: Numeric (1 - 10) - HEENT Pupil (Motor): EOMI Mallampati: II Teeth: Normal Oral Opening: Greater than 3 - [employer]ISH[employer] UT[employer] PERSON LOC: Oriented [employer] UT[employer] PERSON Motor: Normal RUE, Normal RLE, Normal Face, Deficit LUE, Deficit LLE [employer] UTILITY PERSON Sensory: Normal: RUE, LUE, RLE, LLE, Face - Cardiac Rhythm: Regular Murmur: None - Pulmonary Breath Sounds: bilateral Clear Respiratory Effort: Symmetrical Anesthesia Assess/Plan ASA Score: 3 Modified [place] Scale for Level of Consciousness: Cooperative, oriented, and tranquil Anesthetic Plan: General Monitoring Plan: Standard Monitors Recovery Plan: PACU
[2016-05-22] MEDS: Doxycycline 100 MG CAPSULE PO SCH (22:36)
[2016-05-22] MEDS: *HR* Rivaroxaban 15 MG TABLET PO SCH (22:37)
[2016-05-23] MEDS: Cefepime HCl 2,000 MG in D5% in Water (Mini-Bag+) 100 ML IVPB SCH ×3 (01:47→19:01)
[2016-05-23] MEDS: 0.9 % Sodium Chloride 1,000 ML IVC SCH ×2 (04:30→19:44)
[2016-05-23 05:07] LABS: Basophils # 0.1 K/mcL (0.0-0.2); Basophils % 0.6 %; Eosinophils # 0.2 K/mcL (0.0-0.6); Eosinophils % 2.5 %; Hematocrit 28.8 % (35.3-44.9); Immature Granulocytes % 0.3 % (0-4); Lymphocytes % 23.3 %; Mean Corpuscular HGB Conc 33.3 g/dL (31.6-35.5); Mean Corpuscular Hemoglobin 31.6 pg (28.0-33.3); Mean Corpuscular Volume 94.7 fL (83.0-100.0); Mean Platelet Volume 9.8 fL (9.4-12.4); Monocytes # 0.8 K/mcL (0.0-1.3); Monocytes % 9.6 %; Neutrophils # 5.6 K/mcL (1.6-8.9); Platelet Count 270 K/mcL (140-400); Red Blood Count 3.04 M/mcL (3.82-4.97); Red Cell Distribution Width 13.7 % (11.5-14.5); Segmented Neutrophils % 63.7 %
[2016-05-23 05:10] LABS: Activated Partial Thrombo Time 46.4 Seconds (26.0-36.0)
[2016-05-23 05:12] LABS: INR 2.6; Prothrombin Time 28.8 Seconds (9.4-12.1)
[2016-05-23 05:14] LABS: Hemoglobin 9.6 g/dL (11.5-15.4)
[2016-05-23 05:18] LABS: BUN/Creatinine Ratio 29 (6-26); Blood Urea Nitrogen 19 mg/dL (7-20); Calcium 8.5 mg/dL (8.6-10.8); Carbon Dioxide 21 mEq/L (19-29); Chloride 107 mEq/L (98-109); Glucose 92 mg/dL (70-99); Osmolality,Calculated 282 (280-300); Potassium 3.8 mEq/L (3.5-4.5); Sodium 135 mEq/L (136-145); eGFR For African Americans > 60 (> 60); eGFR For Non-African Americans > 60 (> 60)
--- NOTE | 2016-05-23 06:59 | Urology Progress Note ---
Date of Encounter: 05/23/16 Time of Encounter: 06:59 - Assessment and Plan (1) Hydronephrosis Current Visit: Yes Status: Acute Qualifiers: Hydronephrosis type: with renal calculous obstruction Qualified Code(s): N13.2 - Hydronephrosis with renal and ureteral calculous obstruction (2) Ureteral calculus, left Current Visit: Yes Status: Acute Assessment and plan: to OR today for cysto and left ureteral stent placement. Progress Note Narrative: HD 2 with left ueteral stone and hematuria. no pain overnight. Objective Initial Vital Signs Temp Pulse Resp BP Pulse Ox 97.5 F L 94 18 99/68 98 05/22/16 08:58 05/22/16 08:58 05/22/16 08:58 05/22/16 08:58 05/22/16 08:58 - General physical appearance Present: well developed - Abdomen Present: soft - Labs 05/23/16 04:51 05/23/16 04:51 Diabetes panel 05/23/16 Range/Units 04:51 Sodium 135 L (136-145) mEq/L Potassium 3.8 (3.5-4.5) mEq/L Chloride 107 (98-109) mEq/L Carbon Dioxide 21 (19-29) mEq/L BUN 19 (7-20) mg/dL Creatinine 0.65 (0.57-1.11) mg/dL Glucose 92 (70-99) mg/dL Calcium 8.5 L (8.6-10.8) mg/dL Calcium panel 05/23/16 Range/Units 04:51 Calcium 8.5 L (8.6-10.8) mg/dL Pituitary panel 05/23/16 Range/Units 04:51 Sodium 135 L (136-145) mEq/L Potassium 3.8 (3.5-4.5) mEq/L Chloride 107 (98-109) mEq/L Carbon Dioxide 21 (19-29) mEq/L BUN 19 (7-20) mg/dL Creatinine 0.65 (0.57-1.11) mg/dL Glucose 92 (70-99) mg/dL Calcium 8.5 L (8.6-10.8) mg/dL Adrenal panel 05/23/16 Range/Units 04:51 Sodium 135 L (136-145) mEq/L Potassium 3.8 (3.5-4.5) mEq/L Chloride 107 (98-109) mEq/L Carbon Dioxide 21 (19-29) mEq/L BUN 19 (7-20) mg/dL Creatinine 0.65 (0.57-1.11) mg/dL Glucose 92 (70-99) mg/dL Calcium 8.5 L (8.6-10.8) mg/dL Consult Discharge Plan - Plan Referrals: Manuel Bills MD [Partnered Physician] -
[2016-05-23] MEDS ORDERED: *HR* Phenylephrine 10 MG/ML VIAL ONE (07:09)
[2016-05-23] MEDS ORDERED: Lidocaine -MPF 2% 2 ML VIAL ONE (07:09)
[2016-05-23] MEDS ORDERED: *HR* Midazolam HCl 2 MG/2 ML VIAL ONE (07:10)
[2016-05-23] MEDS ORDERED: *HR* Propofol 200 MG/20 ML VIAL IVP ONE (07:10)
[2016-05-23] MEDS ORDERED: *HR* FentaNYL (PF) 100 MCG/2 ML VIAL ONE (07:10)
[2016-05-23] MEDS ORDERED: Lidocaine -MPF 4% 5 ML AMPUL ONE (07:31)
[2016-05-23] MEDS ORDERED: *HR* Meperidine 25 MG/ML SYRINGE IVP PRN (07:33)
[2016-05-23] MEDS ORDERED: Naloxone 0.4 MG/ML INJ IVP PRN ×2 (07:33→09:11)
[2016-05-23] MEDS ORDERED: *HR* Labetalol 100 MG/20 ML MDV IVP PRN (07:33)
[2016-05-23] MEDS ORDERED: Albuterol 2.5 MG/3 ML NEBULIZER IH ONE (07:33)
[2016-05-23] MEDS ORDERED: Ondansetron 4 MG/2 ML VIAL IVP ONE (07:33)
[2016-05-23] MEDS ORDERED: *HR* HYDROmorphone (PF) 1 MG/ML SYRINGE IVP PRN (07:33)
[2016-05-23] MEDS ORDERED: Ringers Solution, Lactated 1,000 ML IVC SCH (07:45)
[2016-05-23] MEDS ORDERED: Ondansetron 4 MG/2 ML VIAL ONE (07:46)
[2016-05-23] MEDS ORDERED: Dexamethasone 4 MG/ML VIAL ONE (07:46)
--- NOTE | 2016-05-23 08:49 | Operative Note ---
Date of procedure: 05/23/16 Pre-op diagnosis: left ureteral stone and hydronephrosis Post-op diagnosis: same Procedure: cystoscopy, left RPG, left ureteroscopy, left 4.8x24cm ureteral stent placement. Anesthesia: GETA Surgeon: Manuel Bills Condition: stable Disposition: PACU Procedure in Detail: Patient was prepped and draped in normal sterile fashion. Timeout procedure performed. I then inserted the cystoscope into the patient's bladder and cannulating the left ureteral orifice using a Glidewire. I was unable to pass the Glidewire beyond the mid left ureteral stone. I then performed a retrograde pyelogram using after the contrast which only a small wisp of contrast went beyond the stone. I then reattempted to place the wire beyond the stone which was unsuccessful. I then placed a semirigid ureteroscope into the patient's bladder and advance it up to the stone. The stone was quite impacted. I was able to negotiate the wire beyond the stone eventually. I then attempted to place a 6 x 24 cm stent which was unsuccessfully placed. At this point I then placed an 8/10 dilation sheath was able to dilate the ureter around the stone to the 8-[place] diameter. I then was able to place a 4.8 x 24 synovator stent with good curl seen in the kidney and in the bladder on the left side. Bladder was drained procedure was ended.
--- NOTE | 2016-05-23 08:52 | Anesthesia Evaluation Post Op ---
Date of Encounter: 05/23/16 Time of Encounter: 08:51 - Vital Signs Vital Signs: O2 Sat Height 1.55 m Weight 46.2 kg Weight 46.085 kg Weight 87.634 kg O2 Sat by Pulse Oximetry 98 O2 Sat by Pulse Oximetry 98 O2 Sat by Pulse Oximetry 100 O2 Sat by Pulse Oximetry 96 O2 Sat by Pulse Oximetry 97 O2 Sat by Pulse Oximetry 95 O2 Sat by Pulse Oximetry 95 O2 Sat by Pulse Oximetry 98 O2 Sat by Pulse Oximetry 98 O2 Sat by Pulse Oximetry 99 O2 Sat by Pulse Oximetry 99 O2 Sat by Pulse Oximetry 98 Vital Signs Temp Pulse Resp BP Pulse Ox 97.5 F L 94 18 99/68 98 05/22/16 08:58 05/22/16 08:58 05/22/16 08:58 05/22/16 08:58 05/22/16 08:58 - Lungs Lungs: Clear Ascult./Percussion - Airway Airway: Non-obstructed - Cardiovascular Regular Rate - Mental Status Mental Status: Alert & Oriented, Answers Appropriately - Pain Pain Scale: 0 Pain Scale used: Numeric (1 - 10) - Nausea Vomiting Nausea Vomiting: Not Present - Hydration Hydration: Ice chips, Has not voided - Discharge PostOp Status: Transfer Patient to floor
[2016-05-23] MEDS ORDERED: Loratadine 10 MG TABLET PO SCH (09:00)
[2016-05-23] MEDS ORDERED: BuPROPion XL (24 HR) 150 MG TABLET PO SCH (09:00)
[2016-05-23] MEDS ORDERED: traZODone 50 MG TABLET PO PRN (09:11)
[2016-05-23] MEDS ORDERED: Acetaminophen 325 MG TABLET PO PRN (09:11)
[2016-05-23] MEDS ORDERED: Baclofen 10 MG TABLET PO PRN (09:11)
[2016-05-23] MEDS ORDERED: Ondansetron ODT 4 MG TAB.RAPDIS SL PRN (09:11)
--- NOTE | 2016-05-23 17:05 | Internal Med Progress Note ---
Date of Encounter: 05/23/16 Time of Encounter: 09:15 - Assessment and plan (1) Multiple sclerosis Current Visit: Yes Status: Acute Assessment and plan: She did have trouble with fine motor skills and having trouble feeding. PT and OT have been consult because I imagine that this hospitalization might set her back some as well. (2) Hydronephrosis Current Visit: No Status: Acute Qualifiers: Hydronephrosis type: with renal calculous obstruction Qualified Code(s): N13.2 - Hydronephrosis with renal and ureteral calculous obstruction (3) Pressure ulcer of coccygeal region, stage 3 Current Visit: No Status: Acute (4) UTI (urinary tract infection) Current Visit: Yes Status: Suspected Assessment and plan: Urinary tract infection suspected, urine culture negative so far, continue IV antibiotics until urine culture final Qualifiers: Urinary tract infection type: acute cystitis Hematuria presence: with hematuria Qualified Code(s): N30.01 - Acute cystitis with hematuria (5) Ureteral calculus, left Current Visit: Yes Status: Acute Assessment and plan: Status post stent placement this morning. - Time Spent With Patient less than 15 minutes - Subjective Interval history: She just got back up to the floor from having her stent put in for her impacted ureteral stone. Please see Dr. Bills's note. Greatly appreciate his help. She is feeling well enough to start trying some oral clear liquids. - Constitutional Vitals: Temp Pulse Resp BP Pulse Ox 98.4 F 87 18 98/64 96 05/23/16 15:14 05/23/16 16:10 05/23/16 16:10 05/23/16 16:10 05/23/16 16:10 General appearance: Present: A&O X 3, pleasant, no acute distress - Respiratory Respiratory exam: Present: CTAB. Absent: respiratory distress, rhonchi, wheezes - Cardiovascular Cardiovascular exam: Present: RRR Internal Medicine: Result - Labs CBC & Chem 7: 05/23/16 04:51 05/23/16 04:51 Labs: Short CBC 05/23/16 Range/Units 04:51 WBC 8.8 (4.3-11.1) K/mcL Hgb 9.6 L D (11.5-15.4) g/dL Hct 28.8 L (35.3-44.9) % Plt Count 270 (140-400) K/mcL Neutrophils # 5.6 (1.6-8.9) K/mcL BMP 05/23/16 04:51 Sodium 135 L Potassium 3.8 Chloride 107 Carbon Dioxide 21 BUN 19 Creatinine 0.65 Glucose 92 Calcium 8.5 L - ABG Interpretation ABG results: PT/INR, D-dimer PT 28.8 Seconds (9.4-12.1) H D 05/23/16 04:51 - Impressions Impressions Retrograde Pyelogram 05/23/16 00:00 IMPRESSION: Intraprocedural fluoroscopic spot images as above. See separate procedure report for more information. D/ / 05/23/2016 08:42:49 Johnathan Valencia MD / [email or web address] Interpreting Provider: Johnathan Valencia MD - VTE Documentation of Mechanical Device: Graduated compression elastic hosiery Consult Discharge Plan - Plan Referrals: Manuel Bills MD [Partnered Physician] -
[2016-05-23] MEDS: Cholecalciferol (D-3) 1,000 UNIT TABLET PO SCH (19:54)
[2016-05-23] MEDS: Doxycycline 100 MG CAPSULE PO SCH ×2 (19:54→21:42)
[2016-05-23] MEDS: *HR* Rivaroxaban 15 MG TABLET PO SCH ×2 (19:55→21:42)
[2016-05-23] MEDS ORDERED: Famotidine 20 MG TABLET PO SCH (21:00)
[2016-05-24] MEDS: 0.9 % Sodium Chloride 1,000 ML IVC SCH ×2 (02:53→02:55)
[2016-05-24] MEDS: Cefepime HCl 2,000 MG in D5% in Water (Mini-Bag+) 100 ML IVPB SCH ×3 (02:55→18:03)
--- NOTE | 2016-05-24 08:19 | Internal Med Progress Note ---
Date of Encounter: 05/24/16 Time of Encounter: 08:17 - Assessment and plan (1) UTI (urinary tract infection) Current Visit: No Status: Acute Assessment and plan: final cultures no growth Qualifiers: Urinary tract infection type: site unspecified Hematuria presence: without hematuria Qualified Code(s): N39.0 - Urinary tract infection, site not specified (2) Hydronephrosis Current Visit: No Status: Acute Assessment and plan: s/p stent placement no complication Qualifiers: Hydronephrosis type: with renal calculous obstruction Qualified Code(s): N13.2 - Hydronephrosis with renal and ureteral calculous obstruction (3) Multiple sclerosis Current Visit: No Status: Chronic Assessment and plan: chronic (4) Hypertension Current Visit: No Status: Chronic Assessment and plan: well controlled Qualifiers: Hypertension type: essential hypertension Qualified Code(s): I10 - Essential (primary) hypertension (5) Pressure ulcer of coccygeal region, stage 3 Current Visit: No Status: Chronic Assessment and plan: chronic (6) DVT (deep venous thrombosis) Current Visit: No Status: Acute Assessment and plan: recent dvt on xarelto Qualifiers: DVT location: lower extremity Affected thrombotic vein of extremity: unspecified vein of extremity Laterality: left Chronicity: acute Qualified Code(s): I82.402 - Acute embolism and thrombosis of unspecified deep veins of left lower extremity (7) Multiple sclerosis Current Visit: Yes Status: Chronic Assessment and plan: chronic - Subjective Interval history: patient with history of multiple sclerosis, pressure ulcer of bottox, high choleterol recnet admission for DVT Admitted with renal calculi and hydronephrosis underwent stent clinically doing better no fever or chills awaiting DR Shepard to decide on discharge - Constitutional Vitals: Temp Pulse Resp BP Pulse Ox 98.3 F 80 16 103/64 94 L 05/24/16 07:53 05/24/16 07:53 05/24/16 07:53 05/24/16 07:53 05/24/16 07:53 General appearance: Present: cachectic, A&O X 3, pleasant, no acute distress - Eye Eye exam: Present: PERRL, conjuntiva pink, sclera anicteric Pupils: Present: PERRL - Neck Neck exam general surgery: Present: supple, trachea midline. Absent: lymphadenopathy - Respiratory Respiratory exam: Present: CTAB. Absent: accessory muscle use, rales, rhonchi, wheezes - Cardiovascular Cardiovascular exam: Present: RRR, +S1, +S2. Absent: diastolic murmur, gallop, rubs, systolic murmur - Extremities Exam Additional comments: left leg swellig Internal Medicine: Result - Labs CBC & Chem 7: 05/23/16 04:51 05/23/16 04:51 - ABG Interpretation ABG results: PT/INR, D-dimer PT 28.8 Seconds (9.4-12.1) H D 05/23/16 04:51 - Impressions Impressions Retrograde Pyelogram 05/23/16 00:00 IMPRESSION: Intraprocedural fluoroscopic spot images as above. See separate procedure report for more information. D/ / 05/23/2016 08:42:49 Johnathan Valencia MD / bcarter Interpreting Provider: Johnathan Valencia MD - VTE Documentation of Mechanical Device: Graduated compression elastic hosiery Consult Discharge Plan - Plan Referrals: Manuel Bills MD [Partnered Physician] -
--- NOTE | 2016-05-24 08:37 | Urology Progress Note ---
Date of Encounter: 05/24/16 Time of Encounter: 08:36 - Assessment and Plan (1) Hydronephrosis Current Visit: Yes Status: Acute Qualifiers: Hydronephrosis type: with renal calculous obstruction Qualified Code(s): N13.2 - Hydronephrosis with renal and ureteral calculous obstruction (2) Ureteral calculus, left Current Visit: Yes Status: Acute Assessment and plan: sp stenting. doing well. will schedule patietn for stone extraction as outpt. Progress Note Narrative: POD 1 from left ureteral stent placement. patient feeling better today. Objective Initial Vital Signs Temp Pulse Resp BP Pulse Ox 97.5 F L 94 18 99/68 98 05/22/16 08:58 05/22/16 08:58 05/22/16 08:58 05/22/16 08:58 05/22/16 08:58 - General physical appearance Present: well developed - Abdomen Present: soft - Labs 05/23/16 04:51 05/23/16 04:51 - VTE Documentation of Mechanical Device: Graduated compression elastic hosiery Consult Discharge Plan - Plan Referrals: Manuel Bills MD [Partnered Physician] -
--- NOTE | 2016-05-24 08:51 | Discharge Summary ---
Date of Encounter: 05/24/16 Time of Encounter: 08:47 - Discharge Diagnosis (1) UTI (urinary tract infection) Priority: Primary Status: Resolved Qualifiers: Urinary tract infection type: site unspecified Hematuria presence: without hematuria Qualified Code(s): N39.0 - Urinary tract infection, site not specified (2) Hydronephrosis Priority: Secondary Status: Resolved Comments: resolved (3) Multiple sclerosis Priority: Secondary Status: Chronic (4) Hypertension Priority: Secondary Status: Chronic Qualifiers: Hypertension type: essential hypertension Qualified Code(s): I10 - Essential (primary) hypertension (5) Pressure ulcer of coccygeal region, stage 3 Priority: Secondary Status: Chronic (6) DVT (deep venous thrombosis) Priority: Secondary Status: Acute Qualifiers: DVT location: lower extremity Affected thrombotic vein of extremity: unspecified vein of extremity Laterality: left Chronicity: unspecified Qualified Code(s): I82.402 - Acute embolism and thrombosis of unspecified deep veins of left lower extremity (7) Multiple sclerosis Priority: Secondary Status: Chronic - Discharge Medications Home Medications: BuPROPion XL (24 HR) [Wellbutrin Xl] 150 mg PO QAM #0 10/29/14 [History] Cholecalciferol (Vitamin D3) [Vitamin D3] 50,000 unit PO GUTIERREZ #0 10/29/14 [ History] Multivitamin/Iron/Folic Acid [Centrum Complete Multivit Tab] 1 each PO QPM #0 10/29/14 [History] Omeprazole [PriLOSEC] 20 mg PO BID #0 10/29/14 [History] Pravastatin Sodium [Pravachol] 40 mg PO QPM #0 10/29/14 [History] Baclofen 20 mg PO Q8HR PRN 01/11/16 [History] Loratadine [Allergy Relief] 10 mg PO DAILY 01/11/16 [History] Ondansetron ODT [Zofran ODT] 4 mg SL DAILY PRN 01/11/16 [History] Polyethylene Glycol 1000 [Polyethylene Glycol] 17 gm PO Q48H 01/11/16 [History] Ranitidine HCl [Zantac] 150 mg PO HS 01/11/16 [History] Doxycycline 100 mg PO BID #180 capsule 01/29/16 [Rx] Docusate [Colace] 100 mg PO BID capsule 01/30/16 [Rx] Ferrous Sulfate 325 mg PO BIDWM tablet 01/30/16 [Rx] Cephalexin 500 mg PO BID #14 tablet 05/18/16 [Rx] Rivaroxaban [Xarelto] 15 mg PO BID 05/22/16 [History] Allergies/Adverse Reactions: Allergies dextromethorphan [From NyQuil] Allergy (Verified 01/27/16 02:18) Difficulty Breathing doxylamine [From NyQuil] Allergy (Verified 01/27/16 02:18) Difficulty Breathing iodine Allergy (Verified 01/27/16 02:18) See Comments "turns skin into poison" pregabalin [From Lyrica] Allergy (Verified 01/27/16 02:18) Hallucinating pseudoephedrine [From NyQuil] Allergy (Verified 01/27/16 02:18) Difficulty Breathing codeine Adverse Reaction (Verified 01/27/16 02:18) Nausea Date of admission: 05/22/16 14:06 Primary care physician: Yassine Gunn MD Consults: 05/22/16 14:28 Consult to Oven Heater Helper [CONS] Routine Reason for SW Consult: discharge planning, plan for possible D/C to [facility] Discharging clinician: Eduar Cabezas Anticipated date of discharge: 05/24/16 - Patient Status Disposition: Transfer LTC Overall status at discharge: patient is back to baseline - Discharge Instructions - Diet and Activity Activity: resume usual activities as tolerated Diet: advance to your usual diet Interval History: see detailed progress note from today Hospital course: Ms. Obrien is a 55 year old female Time spent discussing smoking cessation with patient: 3 to 10 minutes - Time Spent with Patient Total time spent providing and/or coordinating discharge services: Greater than 30 minutes - Constitutional Vitals: Temp Pulse Resp BP Pulse Ox 98.3 F 80 16 103/64 94 L 05/24/16 07:53 05/24/16 07:53 05/24/16 07:53 05/24/16 07:53 05/24/16 07:53 General appearance: Present: cachectic, A&O X 3, pleasant, no acute distress - Eye Eye exam: Present: PERRL, conjuntiva pink, sclera anicteric Pupils: Present: PERRL - Neck Neck exam general surgery: Present: supple, trachea midline. Absent: lymphadenopathy - Respiratory Respiratory exam: Present: CTAB. Absent: accessory muscle use, rales, rhonchi, wheezes - GI/Abdominal GI/Abdominal exam: Present: normal bowel sounds, soft, no peritoneal signs. Absent: distended, tenderness - VTE Documentation of Mechanical Device: Graduated compression elastic hosiery
[2016-05-24] MEDS: Doxycycline 100 MG CAPSULE PO SCH (08:52)
[2016-05-24] MEDS: *HR* Rivaroxaban 15 MG TABLET PO SCH (08:53)
[2016-05-24] MEDS ORDERED: BuPROPion XL (24 HR) 150 MG TABLET PO SCH (09:00)
[2016-05-24] MEDS ORDERED: Cholecalciferol (D-3) 1,000 UNIT TABLET PO SCH (09:00)
[2016-05-24] MEDS ORDERED: Loratadine 10 MG TABLET PO SCH (09:00)
--- NOTE | 2016-05-24 09:08 | Physician Discharge Referral ---
ExtendedCare Referral Info Transfer To: [place] Provider in Charge after Transfer: PCP Institutional Level of Care: Skilled - Diagnosis (1) UTI (urinary tract infection) Status: Resolved (2) Hydronephrosis Status: Resolved (3) Multiple sclerosis Status: Chronic (4) Hypertension Status: Chronic (5) Pressure ulcer of coccygeal region, stage 3 Status: Chronic (6) DVT (deep venous thrombosis) Status: Acute (7) Multiple sclerosis Status: Chronic - Transfer Medications Home Medications: BuPROPion XL (24 HR) [Wellbutrin Xl] 150 mg PO QAM #0 10/29/14 [History] Cholecalciferol (Vitamin D3) [Vitamin D3] 50,000 unit PO GUTIERREZ #0 10/29/14 [ History] Multivitamin/Iron/Folic Acid [Centrum Complete Multivit Tab] 1 each PO QPM #0 10/29/14 [History] Omeprazole [PriLOSEC] 20 mg PO BID #0 10/29/14 [History] Pravastatin Sodium [Pravachol] 40 mg PO QPM #0 10/29/14 [History] Baclofen 20 mg PO Q8HR PRN 01/11/16 [History] Loratadine [Allergy Relief] 10 mg PO DAILY 01/11/16 [History] Ondansetron ODT [Zofran ODT] 4 mg SL DAILY PRN 01/11/16 [History] Polyethylene Glycol 1000 [Polyethylene Glycol] 17 gm PO Q48H 01/11/16 [History] Ranitidine HCl [Zantac] 150 mg PO HS 01/11/16 [History] Doxycycline 100 mg PO BID #180 capsule 01/29/16 [Rx] Docusate [Colace] 100 mg PO BID capsule 01/30/16 [Rx] Ferrous Sulfate 325 mg PO BIDWM tablet 01/30/16 [Rx] Cephalexin 500 mg PO BID #14 tablet 05/18/16 [Rx] Rivaroxaban [Xarelto] 15 mg PO BID 05/22/16 [History] Allergies/Adverse Reactions: Allergies dextromethorphan [From NyQuil] Allergy (Verified 01/27/16 02:18) Difficulty Breathing doxylamine [From NyQuil] Allergy (Verified 01/27/16 02:18) Difficulty Breathing iodine Allergy (Verified 01/27/16 02:18) See Comments "turns skin into poison" pregabalin [From Lyrica] Allergy (Verified 01/27/16 02:18) Hallucinating pseudoephedrine [From NyQuil] Allergy (Verified 01/27/16 02:18) Difficulty Breathing codeine Adverse Reaction (Verified 01/27/16 02:18) Nausea - Respiratory Orders Smoking Cessation: Smoking cessation has been advised. For more information, call the [place] Tobacco Quit Line at 0-391-WUPH-NOW. CERTIFICATION: I certify that the transfer of the above named patient to an Extended Care Facility is necessary for the continuing treatment of the diagnosis listed. The above information is true and accurate reflection of patient's current condition. Confidential - Redisclosure prohibited without a patient's written consent.
[2016-05-24 15:33] VITALS: BP 99/59
== END 2016-05-24 18:26 | DRG 693 ==
LOC: EMEROO 08:53 → 3ANU 08:53
PROVIDERS: ADMIT Internal Medicine; ATTEND Internal Medicine

== ENCOUNTER 2016-08-04 15:42 | Observation (INO) ==
[2016-08-04] MEDS ORDERED: 0.9 % Sodium Chloride 1,000 ML IVC ONE (16:09)
[2016-08-04 17:38] LABS: Basophils # 0.1 K/mcL (0.0-0.2); Basophils % 0.6 %; Eosinophils # 0.5 K/mcL (0.0-0.6); Eosinophils % 6.3 %; Hematocrit 35.2 % (35.3-44.9); Hemoglobin 11.3 g/dL (11.5-15.4); Immature Granulocytes % 0.2 % (0-4); Immature Platelets 2.3 % (1.1-6.1); Lymphocytes # 1.8 K/mcL (0.6-4.6); Lymphocytes % 22.4 %; Mean Corpuscular HGB Conc 32.1 g/dL (31.6-35.5); Mean Corpuscular Hemoglobin 31.6 pg (28.0-33.3); Mean Corpuscular Volume 98.3 fL (83.0-100.0); Mean Platelet Volume 9.7 fL (9.4-12.4); Monocytes # 0.7 K/mcL (0.0-1.3); Monocytes % 8.4 %; Platelet Count 371 K/mcL (140-400); Red Blood Count 3.58 M/mcL (3.82-4.97); Segmented Neutrophils % 62.1 %
[2016-08-04 17:52] LABS: Alanine Aminotransferase 12 Units/L (0-55); Albumin 2.8 g/dL (3.5-5.0); Albumin/Globulin Ratio 0.7 (1.1-2.2); Alkaline Phosphatase 126 Units/L (38-126); Aspartate Amino Transferase 15 Units/L (5-34); BUN/Creatinine Ratio 14 (6-26); Bilirubin,Total 0.3 mg/dL (0.2-1.2); Blood Urea Nitrogen 11 mg/dL (7-20); Calcium 9.9 mg/dL (8.6-10.8); Carbon Dioxide 29 mEq/L (19-29); Chloride 105 mEq/L (98-109); Globulin 4.2 g/dL (2.4-3.5); Glucose 98 mg/dL (70-99); Osmolality,Calculated 293 (280-300); Potassium 4.1 mEq/L (3.5-4.5); Sodium 142 mEq/L (136-145); eGFR For African Americans > 60 (> 60); eGFR For Non-African Americans > 60 (> 60)
[2016-08-04 18:03] LABS: Bilirubin,Urine Negative (Negative); Blood,Urine Large (Negative); Clarity,Urine Turbid (Clear); Color,Urine Yellow (Yellow); Glucose,Urine (UA) Normal (Normal); Ketones,Urine Negative (Negative); Leukocyte Esterase,Urine Large (Negative); Nitrite,Urine Positive (Negative); Protein,Urine 30 mg/dL (Neg-Trace); Specific Gravity,Urine 1.011 (1.010-1.025); Urobilinogen,Urine Normal (Normal)
[2016-08-04 18:06] LABS: Bacteria,Urine Many per hpf (None-Few); Hyaline Casts,Urine None Seen per lpf (None-Few); RBC,Urine 50-100 per hpf (0-3); Squamous Epithelial Cell,Urine Many per lpf (None-Few); WBC,Urine TNTC per hpf (0-3)
[2016-08-04] MEDS ORDERED: Ondansetron 4 MG/2 ML VIAL IVP PRN (20:55)
[2016-08-04] MEDS ORDERED: Naloxone 0.4 MG/ML INJ IVP PRN (20:55)
--- NOTE | 2016-08-04 21:01 | Emergency Department Note ---
Disposition Clinical Impression: Urinary tract infection Qualifiers: Urinary tract infection type: acute cystitis Hematuria presence: with hematuria Qualified Code(s): N30.01 - Acute cystitis with hematuria Disposition: Admitted As Inpatient Condition: Fair General Adult HPI - General Chief complaint: ED Urogenital-Female Stated complaint: "family wants checked for uti" Source: EMS Limitations: physical limitation Nursing Notes Reviewed: Yes Vital Signs Reviewed: Yes - History of Present Illness HPI Narrative: 55-year-old female who presents with concern for lethargy, dehydration, urinary tract infection. She does have progressive multiple sclerosis and is bed confined. She has severe osteoporosis. She presented today after having dry mucous membranes and some somnolence at home and the family was concerned about underlying urinary tract infection. She is incontinent to urine and does wear depends. She has no trauma. She has no fever or chills. Her vital signs are stable on arrival. Female patient with complex comorbid medical problems who presents with urinary tract infection. Urine sent for culture. Blood cultures obtained. Ceftriaxone initiated. Hydration initiated. Lactate was normal. Vital signs have remained stable. I would proceed with admission for complicated urinary tract infection the setting of multiple comorbidities and bed confinement. Discussed case with hospitalist. Patient will be admitted in stable condition. Pain Scale: 0 - Related Data Home Medications Medication Instructions Recorded Confirmed BuPROPion XL (24 HR) [Wellbutrin 150 mg PO QAM #0 10/29/14 06/24/16 Xl] Cholecalciferol (Vitamin D3) 50,000 unit PO GUTIERREZ #0 10/29/14 06/24/16 [Vitamin D3] Multivitamin/Iron/Folic Acid 1 each PO QPM #0 10/29/14 06/24/16 [Centrum Complete Multivit Tab] Omeprazole [PriLOSEC] 20 mg PO BID #0 10/29/14 06/24/16 Pravastatin Sodium [Pravachol] 40 mg PO QPM #0 10/29/14 06/24/16 Baclofen 20 mg PO Q8HR PRN 01/11/16 06/24/16 Loratadine [Allergy Relief] 10 mg PO DAILY 01/11/16 06/24/16 Ondansetron ODT [Zofran ODT] 4 mg SL DAILY PRN 01/11/16 06/24/16 Polyethylene Glycol 1000 17 gm PO Q48H 01/11/16 06/24/16 [Polyethylene Glycol] Ranitidine HCl [Zantac] 150 mg PO HS 01/11/16 06/24/16 Doxycycline Hyclate 100 mg PO BID 06/24/16 06/24/16 Enoxaparin [Lovenox] 40 mg SQ Q12HR 06/24/16 06/24/16 Naproxen [Naprosyn] 500 mg PO BID 06/24/16 06/24/16 Previous Rx's Medication Instructions Recorded Docusate [Colace] 100 mg PO BID capsule 01/30/16 HYDROcodone/Acet 5/325 mg [[place] 1 tab PO Q4H PRN #10 tablet 06/24/16 5-325 mg] Allergies Allergy/AdvReac Type Severity Reaction Status Date / Time dextromethorphan Allergy Difficulty Verified 01/27/16 02:18 [From NyQuil] Breathing doxylamine [From NyQuil] Allergy Difficulty Verified 01/27/16 02:18 Breathing iodine Allergy See Verified 01/27/16 02:18 Comments pregabalin [From Lyrica] Allergy Hallucinati Verified 01/27/16 02:18 ng pseudoephedrine [From NyQuil] Allergy Difficulty Verified 01/27/16 02:18 Breathing codeine AdvReac Nausea Verified 01/27/16 02:18 All systems ED: reviewed and negative except as stated. Past Medical History - Past Medical History Medical history: Reports: GERD, hyperlipidemia, kidney stones, osteoporosis, other Surgical history: Reports: cholecystectomy, hip replacement, other Psychiatric history: Reports: anxiety, depression - Social History Smoking Status: Former smoker Smokeless Tobacco Status: No Alcohol use: Reports: none Drug use: Reports: none Physical Exam - General Limitations: no limitations, physical limitation General appearance: alert - Head Head exam: atraumatic - Eye Eye exam: Present: normal appearance - ENT ENT exam: mucous membranes dry - Neck Neck exam: Present: normal inspection - Chest Chest inspection: Present: normal inspection - Respiratory Respiratory exam: Present: normal lung sounds bilaterally - Cardiovascular Cardiovascular exam: Present: regular rate, normal rhythm - Abdominal Exam Abdominal exam: Present: soft, Non-Tender - Extremities Exam Extremities exam: Present: other - Back Exam Back exam: Present: normal inspection - Neurological Exam Neurological exam: Present: alert - Psychiatric Psychiatric exam: Present: depressed - Skin Skin exam: Present: warm - Other Other exam information: Her left leg is inverted. Family is concerned about something wrong with her hip. I did x-ray the hip. There is no evidence of fracture. Her hardware is in place. Course Vital Signs Temperature 98.4 F 08/04/16 15:46 Pulse Rate 71 08/04/16 15:46 Respiratory Rate 18 08/04/16 15:46 Blood Pressure 130/83 08/04/16 15:46 O2 Sat by Pulse Oximetry 97 08/04/16 15:46 Temperature 98.1 F 08/04/16 20:53 Pulse Rate 70 08/04/16 20:37 Respiratory Rate 16 08/04/16 20:53 Blood Pressure 136/96 08/04/16 20:53 O2 Sat by Pulse Oximetry 97 08/04/16 20:37 Oxygen Delivery Oxygen Delivery Room Air Medical Decision Making - MDM Narrative Medical decision making narrative: Female patient with complex comorbid medical problems who presents with urinary tract infection. Urine sent for culture. Blood cultures obtained. Ceftriaxone initiated. Hydration initiated. Lactate was normal. Vital signs have remained stable. I would proceed with admission for complicated urinary tract infection the setting of multiple comorbidities and bed confinement. Discussed case with hospitalist. Patient will be admitted in stable condition. - Medical Records Medical records reviewed: Yes I reviewed the patient's medical records. - Lab Data Lab results reviewed: Yes I reviewed the patient's lab results. Result diagrams: 08/04/16 17:22 08/04/16 17:22 Lab Results 08/04/16 08/04/16 08/04/16 Range/Units 17:22 17:22 17:22 WBC 8.1 (4.3-11.1) K/mcL RBC 3.58 L (3.82-4.97) M/mcL Hgb 11.3 L (11.5-15.4) g/dL Hct 35.2 L (35.3-44.9) % MCV 98.3 (83.0-100.0) fL MCH 31.6 (28.0-33.3) pg MCHC 32.1 (31.6-35.5) g/dL RDW 14.0 (11.5-14.5) % Plt Count 371 (140-400) K/mcL MPV 9.7 (9.4-12.4) fL Immature Gran % 0.2 (0-4) % Seg Neutrophils % 62.1 % Lymphocytes % 22.4 % Monocytes % 8.4 % Eosinophils % 6.3 % Basophils % 0.6 % Neutrophils # 5.0 (1.6-8.9) K/mcL Lymphocytes # 1.8 (0.6-4.6) K/mcL Monocytes # 0.7 (0.0-1.3) K/mcL Eosinophils # 0.5 (0.0-0.6) K/mcL Basophils # 0.1 (0.0-0.2) K/mcL Immature Plt Fraction 2.3 (1.1-6.1) % Sodium 142 (136-145) mEq/L Potassium 4.1 (3.5-4.5) mEq/L Chloride 105 (98-109) mEq/L Carbon Dioxide 29 (19-29) mEq/L BUN 11 (7-20) mg/dL Creatinine 0.77 (0.57-1.11) mg/dL Est GFR ( Amer) > 60 (> 60) Est GFR (Non-Af Amer) > 60 (> 60) BUN/Creatinine Ratio 14 (6-26) Glucose 98 (70-99) mg/dL Calculated Osmolality 293 (280-300) Lactic Acid 0.9 (0.5-2.2) mmol/L Calcium 9.9 (8.6-10.8) mg/dL Total Bilirubin 0.3 (0.2-1.2) mg/dL AST 15 (5-34) Units/L ALT 12 (0-55) Units/L Alkaline Phosphatase 126 (38-126) Units/L Troponin I (0-0.03) ng/mL B-Natriuretic Peptide (0-100) pg/mL Serum Total Protein 7.0 (6.0-8.3) g/dL Albumin 2.8 L (3.5-5.0) g/dL Globulin 4.2 H (2.4-3.5) g/dL Albumin/Globulin Ratio 0.7 L (1.1-2.2) Urine Color (Yellow) Urine Clarity (Clear) Urine pH (5.0-8.0) pH Units Ur Specific [place] (1.010-1.025) Urine Protein (Neg-Trace) mg/dL Urine Glucose (UA) (Normal) mg/dL Urine Ketones (Negative) mg/dL Urine Blood (Negative) Urine Nitrite (Negative) Urine Bilirubin (Negative) Urine Urobilinogen (Normal) mg/dL Ur Leukocyte Esterase (Negative) Urine Microscopic RBC (0-3) per hpf Urine Microscopic WBC (0-3) per hpf Ur Squamous Epith Cells (None-Few) per lpf Urine Bacteria (None-Few) per hpf Hyaline Casts (None-Few) per lpf Urine Yeast Ur Culture Indicated? (NO) 08/04/16 08/04/16 08/04/16 Range/Units 17:22 17:22 17:54 WBC (4.3-11.1) K/mcL RBC (3.82-4.97) M/mcL Hgb (11.5-15.4) g/dL Hct (35.3-44.9) % MCV (83.0-100.0) fL MCH (28.0-33.3) pg MCHC (31.6-35.5) g/dL RDW (11.5-14.5) % Plt Count (140-400) K/mcL MPV (9.4-12.4) fL Immature Gran % (0-4) % Seg Neutrophils % % Lymphocytes % % Monocytes % % Eosinophils % % Basophils % % Neutrophils # (1.6-8.9) K/mcL Lymphocytes # (0.6-4.6) K/mcL Monocytes # (0.0-1.3) K/mcL Eosinophils # (0.0-0.6) K/mcL Basophils # (0.0-0.2) K/mcL Immature Plt Fraction (1.1-6.1) % Sodium (136-145) mEq/L Potassium (3.5-4.5) mEq/L Chloride (98-109) mEq/L Carbon Dioxide (19-29) mEq/L BUN (7-20) mg/dL Creatinine (0.57-1.11) mg/dL Est GFR ( Amer) (> 60) Est GFR (Non-Af Amer) (> 60) BUN/Creatinine Ratio (6-26) Glucose (70-99) mg/dL Calculated Osmolality (280-300) Lactic Acid (0.5-2.2) mmol/L Calcium (8.6-10.8) mg/dL Total Bilirubin (0.2-1.2) mg/dL AST (5-34) Units/L ALT (0-55) Units/L Alkaline Phosphatase (38-126) Units/L Troponin I 0.01 (0-0.03) ng/mL B-Natriuretic Peptide 10 (0-100) pg/mL Serum Total Protein (6.0-8.3) g/dL Albumin (3.5-5.0) g/dL Globulin (2.4-3.5) g/dL Albumin/Globulin Ratio (1.1-2.2) Urine Color Yellow (Yellow) Urine Clarity Turbid A (Clear) Urine pH 7.0 (5.0-8.0) pH Units Ur Specific [place] 1.011 (1.010-1.025) Urine Protein 30 H (Neg-Trace) mg/dL Urine Glucose (UA) Normal (Normal) mg/dL Urine Ketones Negative (Negative) mg/dL Urine Blood Large H (Negative) Urine Nitrite Positive A (Negative) Urine Bilirubin Negative (Negative) Urine Urobilinogen Normal (Normal) mg/dL Ur Leukocyte Esterase Large H (Negative) Urine Microscopic RBC 50-100 H (0-3) per hpf Urine Microscopic WBC TNTC H (0-3) per hpf Ur Squamous Epith Cells Many H (None-Few) per lpf Urine Bacteria Many H (None-Few) per hpf Hyaline Casts None Seen (None-Few) per lpf Urine Yeast Test Not Performed Ur Culture Indicated? YES A (NO)
--- NOTE | 2016-08-04 21:08 | Internal Med History&Physical ---
Date of Encounter: 08/04/16 Time of Encounter: 20:30 Assessment and Plan (1) Complicated UTI (urinary tract infection) Current visit: No Status: Acute Patient has multiple UTI. Previous urine culture result reviewed. Will place patient on cefepime 1 g IV every 12 hours per previous culture result. - Urine culture sent, follow-up results. (2) Dehydration Current visit: No Status: Acute Patient has a poor uptake in the recent 2 weeks. We will give her IV fluid. (3) Multiple sclerosis Current visit: No Status: Chronic Patient has progressive multiple sclerosis. She is following with neurology as outpatient. On no medication right now. (4) DVT prophylaxis Current visit: No Status: Acute Patient is on xarelto (5) Status post revision of total hip replacement Current visit: No Status: Acute Hip x-ray done in emergency room. Unremarkable (6) DVT (deep venous thrombosis) Current visit: No Status: Acute DVT diagnosed recently. Patient is on xarelto 20 mg by mouth daily at home. Will continue medication. Qualifiers: DVT location: lower extremity Affected thrombotic vein of extremity: femoral Laterality: left Chronicity: acute Qualified Code(s): I82.412 - Acute embolism and thrombosis of left femoral vein (7) Pulmonary nodule Current visit: Yes Status: Acute CT scan shows 6mm pulmonary nodule. Follow-up as outpatient per protocol. Internal Medicine - H&P: HPI Chief complaint: Lethargic Admitted From: Home Plans for Post Hospital Care: Home History of present illness: Ms. Obrien is a 55 year old female present to ER for lethargic and generalized weakness for 2 weeks. Patient has known history of progressive multiple sclerosis. Patient has low fever with temperature 99. Mild nausea, no vomiting. Patient denies abdominal pain, denies cough. Patient has no urination symptoms such as dysuria, urgency, increased frequency. She has no blood in urine. In emergency room, she was found UTI by urine analysis. CT abdominal or chest has been done, shows cystitis. Patient has history of multiple UTI previously. She was admitted as UTI. I discussed the CODE STATUS with patient. She is full code. Past Med Surg Social Fam HX - Past Medical History Medical history: GERD, hyperlipidemia, kidney stones, osteoporosis, other Psychiatric history: anxiety, depression - Past Surgical History Surgical History: cholecystectomy, hip replacement, other - Social History Smoking Status: Former smoker Smokeless Tobacco Status: No Alcohol use: none Drug use: none - Family History Brother Hx Family Cancer: Yes Mother Living Status: Hx Family Cardiac Disorders: Yes Father Family Member Ethnicity: Non- Living Status: Hx Family Cardiac Disorders: Yes (heart diease, [place],) Hx Family Respiratory Disorders: Yes (copd) Hx Family Cancer: Yes (stomach) Hx Family GI Disorders: Yes Hx Family Endocrine Disorder: No Hx Family Neuromuscular Disorders: No Hx Family Neurologic Disorders: No Hx Family HEENT Disorders: No Hx Family Autoimmune Disorders: No Son Living Status: Still Living Hx Family Cardiac Disorders: No Hx Family Respiratory Disorders: No Hx Family Cancer: No Hx Family GI Disorders: No Hx Family Endocrine Disorder: No Hx Family Neuromuscular Disorders: No Hx Family Neurologic Disorders: No Hx Family HEENT Disorders: No Hx Family Autoimmune Disorders: No Internal Medicine - H&P: Meds BuPROPion XL (24 HR) [Wellbutrin Xl] 150 mg PO QAM #0 10/29/14 [History] Cholecalciferol (Vitamin D3) [Vitamin D3] 50,000 unit PO GUTIERREZ #0 10/29/14 [ History] Multivitamin/Iron/Folic Acid [Centrum Complete Multivit Tab] 1 each PO QPM #0 10/29/14 [History] Omeprazole [PriLOSEC] 20 mg PO BID #0 10/29/14 [History] Pravastatin Sodium [Pravachol] 40 mg PO QPM #0 10/29/14 [History] Baclofen 20 mg PO Q8HR PRN 01/11/16 [History] Loratadine [Allergy Relief] 10 mg PO DAILY 01/11/16 [History] Ondansetron ODT [Zofran ODT] 4 mg SL DAILY PRN 01/11/16 [History] Polyethylene Glycol 1000 [Polyethylene Glycol] 17 gm PO Q48H 01/11/16 [History] Ranitidine HCl [Zantac] 150 mg PO HS 01/11/16 [History] Docusate [Colace] 100 mg PO BID capsule 01/30/16 [Rx] Doxycycline Hyclate 100 mg PO BID 06/24/16 [History] Enoxaparin [Lovenox] 40 mg SQ Q12HR 06/24/16 [History] HYDROcodone/Acet 5/325 mg [[place] 5-325 mg] 1 tab PO Q4H PRN #10 tablet 06/24/16 [Rx] Naproxen [Naprosyn] 500 mg PO BID 06/24/16 [History] Allergies dextromethorphan [From NyQuil] Allergy (Verified 01/27/16 02:18) Difficulty Breathing doxylamine [From NyQuil] Allergy (Verified 01/27/16 02:18) Difficulty Breathing iodine Allergy (Verified 01/27/16 02:18) See Comments "turns skin into poison" pregabalin [From Lyrica] Allergy (Verified 01/27/16 02:18) Hallucinating pseudoephedrine [From NyQuil] Allergy (Verified 01/27/16 02:18) Difficulty Breathing codeine Adverse Reaction (Verified 01/27/16 02:18) Nausea All Systems PM: A 10-system review of systems was performed and is negative for pertinent findings except as documented above in the HPI. - Constitutional Vitals: Temp Pulse Resp BP Pulse Ox 98.1 F 70 16 136/96 97 08/04/16 20:53 08/04/16 20:37 08/04/16 20:53 08/04/16 20:53 08/04/16 20:37 General appearance: Present: mild distress, A&O X 3, answers questions appropriately - Head Head exam: Present: atraumatic, normocephalic - Eye Eye exam: Present: PERRL, conjuntiva pink, sclera anicteric Pupils: Present: PERRL - Neck Neck exam general surgery: Present: supple, trachea midline. Absent: lymphadenopathy - Respiratory Respiratory exam: Present: CTAB. Absent: accessory muscle use, rales, rhonchi, wheezes - Cardiovascular Cardiovascular exam: Present: RRR, +S1, +S2. Absent: diastolic murmur, gallop, rubs, systolic murmur - GI/Abdominal GI/Abdominal exam: Present: normal bowel sounds, soft, tenderness (Mild tenderness on lower abdomen, without guarding or rebound), no peritoneal signs. Absent: distended - Extremities Exam Extremities exam: Present: warm, radial pulses palpable and symetrical. Absent : calf tenderness, cyanotic, pedal edema - Neurological Exam Neurological exam: Present: CN II-XII intact, oriented X3, no focal deficits. Absent: pronater drift, facial droop, speech deficit - Skin Skin exam: Present: dry, intact Internal Med - H&P Results - Labs CBC & Chem 7: 08/04/16 17:22 08/04/16 17:22
[2016-08-04] MEDS: Cefepime HCl 1,000 MG in D5% in Water (Mini-Bag+) 100 ML IVPB SCH (21:42)
[2016-08-05 05:23] LABS: Basophils # 0.1 K/mcL (0.0-0.2); Basophils % 0.8 %; Eosinophils # 0.6 K/mcL (0.0-0.6); Hematocrit 33.2 % (35.3-44.9); Hemoglobin 10.6 g/dL (11.5-15.4); Immature Granulocytes % 0.4 % (0-4); Lymphocytes # 1.5 K/mcL (0.6-4.6); Lymphocytes % 17.7 %; Mean Corpuscular HGB Conc 31.9 g/dL (31.6-35.5); Mean Corpuscular Hemoglobin 31.4 pg (28.0-33.3); Mean Corpuscular Volume 98.2 fL (83.0-100.0); Monocytes # 0.8 K/mcL (0.0-1.3); Monocytes % 9.7 %; Neutrophils # 5.4 K/mcL (1.6-8.9); Platelet Count 315 K/mcL (140-400); Red Blood Count 3.38 M/mcL (3.82-4.97); Red Cell Distribution Width 14.1 % (11.5-14.5); Segmented Neutrophils % 64.4 %
[2016-08-05 05:32] LABS: BUN/Creatinine Ratio 14 (6-26); Blood Urea Nitrogen 9 mg/dL (7-20); Calcium 9.1 mg/dL (8.6-10.8); Carbon Dioxide 25 mEq/L (19-29); Chloride 107 mEq/L (98-109); Glucose 100 mg/dL (70-99); Magnesium 1.7 mg/dL (1.6-2.6); Osmolality,Calculated 287 (280-300); Phosphorous 3.4 mg/dL (2.3-4.7); Potassium 3.6 mEq/L (3.5-4.5); Sodium 139 mEq/L (136-145); eGFR For African Americans > 60 (> 60); eGFR For Non-African Americans > 60 (> 60)
[2016-08-05] MEDS: 0.9 % Sodium Chloride 1,000 ML IVC SCH ×2 (09:36→11:16)
[2016-08-05] MEDS: Cefepime HCl 1,000 MG in D5% in Water (Mini-Bag+) 100 ML IVPB SCH ×2 (09:39→20:07)
[2016-08-05] MEDS: Acetaminophen 325 MG TABLET PO PRN (09:42)
--- NOTE | 2016-08-05 13:36 | Internal Med Progress Note ---
<MaruAlfredo ellis - Last Filed: 08/05/16 13:34> Date of Encounter: 08/05/16 Time of Encounter: 13:34 - Assessment and plan (1) UTI (urinary tract infection) Current Visit: No Status: Resolved Assessment and plan: Improving. Culture pending. Continue cefepime 1g q12h. Adjust abx based on culture and sensitivities Qualifiers: Urinary tract infection type: site unspecified Hematuria presence: without hematuria Qualified Code(s): N39.0 - Urinary tract infection, site not specified (2) Dehydration Current Visit: No Status: Acute Assessment and plan: Patient with improving PO intake, will d/c IV fluids (3) DVT (deep venous thrombosis) Current Visit: No Status: Acute Assessment and plan: Recently diagnosis. Still some L leg swelling. No signs or symptoms of PE. Continue xarelto Qualifiers: DVT location: lower extremity Affected thrombotic vein of extremity: femoral Laterality: left Chronicity: acute Qualified Code(s): I82.412 - Acute embolism and thrombosis of left femoral vein (4) Multiple sclerosis Current Visit: No Status: Chronic Assessment and plan: Patient follows with neurology as an outpatient. Was receiving PT twice a week at home. Patient and deciding on whether to go home with rehab or go to inpatient rehab. - Subjective Interval history: Patient seen and examined at bedside. Patient states that she feels better today. Feels urinary frequency is improving - Constitutional Vitals: Temp Pulse Resp BP Pulse Ox 98.1 F 80 15 114/78 95 08/05/16 07:40 08/05/16 07:40 08/05/16 07:40 08/05/16 07:40 08/05/16 07:40 General appearance: Present: A&O X 3, no acute distress, answers questions appropriately - Respiratory Respiratory exam: Present: CTAB. Absent: rales, rhonchi, wheezes - Cardiovascular Cardiovascular exam: Present: RRR. Absent: gallop, rubs, systolic murmur - GI/Abdominal GI/Abdominal exam: Present: normal bowel sounds, soft. Absent: distended, tenderness - Extremities Exam Additional comments: Left lower extremity trace pedal edema. No edema noted on right - Neurological Exam Neurological exam: Present: alert, oriented X3 Internal Medicine: Result - Labs CBC & Chem 7: 08/05/16 04:47 08/05/16 04:47 Labs: Short CBC 08/05/16 Range/Units 04:47 WBC 8.3 (4.3-11.1) K/mcL Hgb 10.6 L (11.5-15.4) g/dL Hct 33.2 L (35.3-44.9) % Plt Count 315 (140-400) K/mcL Neutrophils # 5.4 (1.6-8.9) K/mcL [facility] 08/05/16 04:47 Sodium 139 Potassium 3.6 Chloride 107 Carbon Dioxide 25 BUN 9 Creatinine 0.66 Glucose 100 H Calcium 9.1 Consult Discharge Plan - Plan Referrals: Yassine Gunn MD [Primary Care Provider] - 08/09/16 1:45 pm <Volodymyr Aguilar - Last Filed: 08/05/16 17:36> Date of Encounter: 08/05/16 - Constitutional Vitals: Temp Pulse Resp BP Pulse Ox 97.8 F 75 15 131/73 96 08/05/16 16:31 08/05/16 16:31 08/05/16 16:31 08/05/16 16:31 08/05/16 16:31 Internal Medicine: Result - Labs CBC & Chem 7: 08/05/16 04:47 08/05/16 04:47 Labs: Short CBC 08/05/16 Range/Units 04:47 WBC 8.3 (4.3-11.1) K/mcL Hgb 10.6 L (11.5-15.4) g/dL Hct 33.2 L (35.3-44.9) % Plt Count 315 (140-400) K/mcL Neutrophils # 5.4 (1.6-8.9) K/mcL [facility] 08/05/16 04:47 Sodium 139 Potassium 3.6 Chloride 107 Carbon Dioxide 25 BUN 9 Creatinine 0.66 Glucose 100 H Calcium 9.1 - Attending Attestation I examined this patient and my medical decision-making was reviewed with the [employer]/PA/Advanced Practice Nurse/Resident Physician. I agree with the documented findings, disposition and treatment plan as described except to the extent set forth below.
[2016-08-05] MEDS: *HR* Rivaroxaban 10 MG TABLET PO SCH (19:52)
[2016-08-06] MEDS: Acetaminophen 325 MG TABLET PO PRN (04:46)
[2016-08-06 07:01] LABS: Basophils # 0.1 K/mcL (0.0-0.2); Basophils % 0.7 %; Eosinophils # 0.6 K/mcL (0.0-0.6); Eosinophils % 7.9 %; Hematocrit 31.4 % (35.3-44.9); Hemoglobin 10.1 g/dL (11.5-15.4); Immature Granulocytes % 0.3 % (0-4); Lymphocytes # 1.6 K/mcL (0.6-4.6); Lymphocytes % 21.5 %; Mean Corpuscular HGB Conc 32.2 g/dL (31.6-35.5); Mean Corpuscular Hemoglobin 30.8 pg (28.0-33.3); Mean Corpuscular Volume 95.7 fL (83.0-100.0); Mean Platelet Volume 9.6 fL (9.4-12.4); Monocytes # 0.7 K/mcL (0.0-1.3); Monocytes % 9.9 %; Neutrophils # 4.5 K/mcL (1.6-8.9); Platelet Count 302 K/mcL (140-400); Red Blood Count 3.28 M/mcL (3.82-4.97); Red Cell Distribution Width 13.4 % (11.5-14.5); Segmented Neutrophils % 59.7 %
[2016-08-06 07:24] LABS: BUN/Creatinine Ratio 12 (6-26); Blood Urea Nitrogen 8 mg/dL (7-20); Calcium 9.2 mg/dL (8.6-10.8); Carbon Dioxide 25 mEq/L (19-29); Chloride 108 mEq/L (98-109); Glucose 94 mg/dL (70-99); Osmolality,Calculated 288 (280-300); Potassium 3.8 mEq/L (3.5-4.5); Sodium 140 mEq/L (136-145); eGFR For African Americans > 60 (> 60); eGFR For Non-African Americans > 60 (> 60)
[2016-08-06] MEDS: Cefepime HCl 1,000 MG in D5% in Water (Mini-Bag+) 100 ML IVPB SCH ×2 (10:17→19:55)
--- NOTE | 2016-08-06 16:43 | Internal Med Progress Note ---
Date of Encounter: 08/06/16 Time of Encounter: 10:05 - Assessment and plan (1) UTI (urinary tract infection) Current Visit: No Status: Resolved Assessment and plan: Improving. Continue cefepime 1g q12h. Culture positive for Citrobacter freundii. Susceptible to cefepime. We will continue. Will start either nitrofurantoin or Bactrim for discharge home. Patient states that she is feeling better. Qualifiers: Urinary tract infection type: site unspecified Hematuria presence: without hematuria Qualified Code(s): N39.0 - Urinary tract infection, site not specified (2) Dehydration Current Visit: No Status: Acute Assessment and plan: Mucous membranes are moist. She is tolerating by mouth fluids. We will continue to encourage by mouth intake. IV fluids for mild gentle hydration. (3) Multiple sclerosis Current Visit: No Status: Chronic Assessment and plan: Patient follows with neurology. She is not on any medications at this time. She does get PT at home 2 times a week. Will continue. (4) DVT prophylaxis Current Visit: No Status: Acute Assessment and plan: Patient is on several rounds of currently for DVT to left lower extremity. Will continue - Time Spent With Patient less than 15 minutes - Subjective Interval history: Patient was seen and assessed about 10:05 AM. Is at bedside and answered most questions for patient, despite the patient has the ability to answer questions. Patient states that she felt like a "Baby idiot" for coming here. reports the patient has felt tired and somnolent for the last 2 weeks. He also says that she has been grumpy and confused. Patient does have home health aides daily for 2 hours, and nurses 2 times a week, as well as physical therapy twice a week and home. She reports constant left lateral knee pain since January when she fell and broke her hip and had a hip replacement. Her left foot is edematous. They say this is normal and no change. Due to the pain and edema in her foot she is unable to bear weight. She had a prior DVT in this leg has been on Xarelto for this. Patient states that she feels better and is ready to go home, however is requesting an extra night in the hospital to ensure that patient is stable to go home. - Constitutional Vitals: Temp Pulse Resp BP Pulse Ox 98.7 F 76 16 120/82 95 08/06/16 15:32 08/06/16 15:32 08/06/16 15:32 08/06/16 15:32 08/06/16 15:32 General appearance: Present: A&O X 3, pleasant, no acute distress, answers questions appropriately - Head Head exam: Present: normal inspection - Eye Eye exam: Present: normal appearance, conjuntiva pink - ENT ENT exam: Present: mucous membranes moist, normal exam - Neck Neck exam general surgery: Present: normal inspection. Absent: lymphadenopathy , tenderness - Respiratory Respiratory exam: Present: CTAB. Absent: rales, respiratory distress, rhonchi, stridor, wheezes - Cardiovascular Cardiovascular exam: Present: RRR, +S1, +S2. Absent: clicks, diastolic murmur, gallop, systolic murmur - GI/Abdominal GI/Abdominal exam: Present: normal bowel sounds, soft. Absent: distended, firm , hepatomegaly, tenderness - Extremities Exam Extremities exam: Present: joint swelling, pedal edema, tenderness, warm, radial pulses palpable and symetrical. Absent: full ROM - Neurological Exam Neurological exam: Present: alert, oriented X3, no focal deficits, strengths equal and symetr throughout. Absent: facial droop, speech deficit Internal Medicine: Result - Labs CBC & Chem 7: 08/06/16 06:40 08/06/16 06:40 Labs: Short CBC 08/06/16 Range/Units 06:40 WBC 7.5 (4.3-11.1) K/mcL Hgb 10.1 L (11.5-15.4) g/dL Hct 31.4 L (35.3-44.9) % Plt Count 302 (140-400) K/mcL Neutrophils # 4.5 (1.6-8.9) K/mcL BMP 08/06/16 06:40 Sodium 140 Potassium 3.8 Chloride 108 Carbon Dioxide 25 BUN 8 Creatinine 0.65 Glucose 94 Calcium 9.2 Consult Discharge Plan - Plan Referrals: Yassine Gunn MD [Primary Care Provider] - 08/09/16 1:45 pm
[2016-08-06] MEDS: *HR* Rivaroxaban 10 MG TABLET PO SCH (16:54)
[2016-08-07 06:47] LABS: Basophils # 0.1 K/mcL (0.0-0.2); Basophils % 0.7 %; Eosinophils # 0.6 K/mcL (0.0-0.6); Eosinophils % 7.9 %; Hemoglobin 10.6 g/dL (11.5-15.4); Immature Granulocytes % 0.1 % (0-4); Lymphocytes # 1.7 K/mcL (0.6-4.6); Lymphocytes % 24.1 %; Mean Corpuscular HGB Conc 31.2 g/dL (31.6-35.5); Mean Corpuscular Hemoglobin 30.5 pg (28.0-33.3); Mean Corpuscular Volume 97.7 fL (83.0-100.0); Mean Platelet Volume 9.4 fL (9.4-12.4); Monocytes # 0.8 K/mcL (0.0-1.3); Neutrophils # 3.9 K/mcL (1.6-8.9); Platelet Count 310 K/mcL (140-400); Red Blood Count 3.48 M/mcL (3.82-4.97); Red Cell Distribution Width 13.5 % (11.5-14.5); Segmented Neutrophils % 56.2 %
[2016-08-07 07:02] LABS: BUN/Creatinine Ratio 11 (6-26); Blood Urea Nitrogen 7 mg/dL (7-20); Calcium 9.4 mg/dL (8.6-10.8); Carbon Dioxide 26 mEq/L (19-29); Chloride 105 mEq/L (98-109); Glucose 90 mg/dL (70-99); Osmolality,Calculated 290 (280-300); Potassium 3.8 mEq/L (3.5-4.5); Sodium 141 mEq/L (136-145); eGFR For African Americans > 60 (> 60); eGFR For Non-African Americans > 60 (> 60)
--- NOTE | 2016-08-07 08:33 | Discharge Summary ---
<Alfredo Tillman - Last Filed: 08/07/16 08:59> Date of Encounter: 08/07/16 Time of Encounter: 08:29 - Discharge Diagnosis (1) UTI (urinary tract infection) Priority: Primary Status: Acute Qualifiers: Urinary tract infection type: site unspecified Hematuria presence: without hematuria Qualified Code(s): N39.0 - Urinary tract infection, site not specified (2) Dehydration Priority: Primary Status: Acute (3) DVT (deep venous thrombosis) Priority: Secondary Status: Chronic Qualifiers: DVT location: lower extremity Affected thrombotic vein of extremity: femoral Laterality: left Chronicity: acute Qualified Code(s): I82.412 - Acute embolism and thrombosis of left femoral vein (4) Multiple sclerosis Priority: Secondary Status: Chronic - Discharge Medications Prescriptions: Sulfamethoxazole/Trimeth DS [Bactrim DS] 1 each PO BID #12 tablet Home Medications: BuPROPion XL (24 HR) [Wellbutrin Xl] 150 mg PO QAM #0 10/29/14 [History] Cholecalciferol (Vitamin D3) [Vitamin D3] 50,000 unit PO GUTIERREZ #0 10/29/14 [ History] Multivitamin/Iron/Folic Acid [Centrum Complete Multivit Tab] 1 each PO QPM #0 10/29/14 [History] Omeprazole [PriLOSEC] 20 mg PO BID #0 10/29/14 [History] Pravastatin Sodium [Pravachol] 40 mg PO QPM #0 10/29/14 [History] Baclofen 20 mg PO Q8HR PRN 01/11/16 [History] Loratadine [Allergy Relief] 10 mg PO DAILY PRN 01/11/16 [History] Ondansetron ODT [Zofran ODT] 4 mg SL DAILY PRN 01/11/16 [History] Ranitidine HCl [Zantac] 150 mg PO HS 01/11/16 [History] Docusate [Colace] 100 mg PO BID capsule 01/30/16 [Rx] HYDROcodone/Acet 5/325 mg [[place] 5-325 mg] 1 tab PO Q4H PRN #10 tablet 06/24/16 [Rx] Ferrous Sulfate [Iron] 325 mg PO DAILY 08/05/16 [History] Ibuprofen [Advil] 200 mg PO DAILY PRN 08/05/16 [History] Polyethylene Glycol 3350 [Smoothlax] 17 g PO Q48H PRN 08/05/16 [History] Rivaroxaban [Xarelto] 20 mg PO QAM 08/05/16 [History] Sulfamethoxazole/Trimeth DS [Bactrim DS] 1 each PO BID #12 tablet 08/07/16 [Rx] Allergies/Adverse Reactions: Allergies dextromethorphan [From NyQuil] Allergy (Verified 01/27/16 02:18) Difficulty Breathing doxylamine [From NyQuil] Allergy (Verified 01/27/16 02:18) Difficulty Breathing iodine Allergy (Verified 01/27/16 02:18) See Comments "turns skin into poison" pregabalin [From Lyrica] Allergy (Verified 01/27/16 02:18) Hallucinating pseudoephedrine [From NyQuil] Allergy (Verified 01/27/16 02:18) Difficulty Breathing codeine Adverse Reaction (Verified 01/27/16 02:18) Nausea Procedures/tests Complete & Pending: Procedures Performed prior 72 hours Category Date Time Status Venous Doppler [EV venous imaging LE LT] Routine Y 08/07/16 08:28 Ordered Date of admission: 08/04/16 18:42 Primary care physician: Yassine Gunn MD Consults: 08/04/16 22:00 Consult to Screen Vent Binder [CONS] Routine Reason for SW Consult: Discharge Planning, Pt states she has Home Health Nursing 08/04/16 22:11 Consult to Occupational Therapy [CONS] Routine Comment: Evaluate, develop and implement POC Reason for Consult: Weakness, s/p hip surgery Consult to Physical Therapy [CONS] Routine Comment: Evaluate, develop and implement POC Reason for Consult: Weakness, s/p hip surgery Discharging clinician: Alfredo Tillman Anticipated date of discharge: 08/07/16 - Patient Status Disposition: Home Health Service Condition: Fair Functional capacity at discharge: bed bound Overall status at discharge: patient is progressing back to baseline - Discharge Instructions Instructions: Sulfamethoxazole/Trimethoprim (By mouth), Urinary Tract Infection in Women (DC) Follow Up With: Yassine Gunn MD [Primary Care Provider] - 08/09/16 1:45 pm Forms: ED Satisfaction Letter Additional Instructions: Please follow-up with your primary care physician: Please take your antibiotic until completed. Please resume your home medications. Please return for any new or worsening symptoms. - Diet and Activity Activity: as per physical therapy Diet: advance to your usual diet Interval History: Patient seen and examined at bedside. Patient states she feels much better. He does report some increased swelling in her left lower extremity. Denies abdominal pain, shortness of breath, nausea, vomiting. Hospital course: Ms. Obrien is a 55 year old female with history of multiple sclerosis and recently diagnosed DVT presented with urinary frequency. Patient is bedbound and had frequent urination, workup revealed urinary tract infection. She was initiated on cefepime given resistance patterns of previous urinary tract infections. Culture was sent which revealed Citrobacter freundii which was sensitive to cefepime that was on as well as Bactrim. Patient has progressed back to baseline. Will obtain left lower extremity Doppler prior to discharge. Patient will be discharged in stable condition. - Time Spent with Patient Total time spent providing and/or coordinating discharge services: Greater than 30 minutes - Constitutional Vitals: Temp Pulse Resp BP Pulse Ox 98.4 F 74 13 122/75 96 08/07/16 08:18 08/07/16 08:18 08/07/16 08:18 08/07/16 08:18 08/07/16 08:18 General appearance: Present: A&O X 3, pleasant, no acute distress, answers questions appropriately - Respiratory Respiratory exam: Present: CTAB. Absent: rales, rhonchi, wheezes - Cardiovascular Cardiovascular exam: Present: RRR. Absent: gallop, rubs, systolic murmur - GI/Abdominal GI/Abdominal exam: Present: normal bowel sounds, soft. Absent: distended, tenderness - Extremities Exam Extremities exam: Present: pedal edema (Left greater than right), warm. Absent : tenderness - Neurological Exam Neurological exam: Present: alert, CN II-XII intact, oriented X3. Absent: no focal deficits <Ronny Vizcaino - Last Filed: 08/07/16 15:04> Date of Encounter: 08/07/16 - Discharge Diagnosis (1) UTI (urinary tract infection) Status: Acute Qualifiers: Urinary tract infection type: acute cystitis Hematuria presence: without hematuria Qualified Code(s): N30.00 - Acute cystitis without hematuria (2) Acute metabolic encephalopathy Priority: Secondary Status: Resolved (3) Multiple sclerosis Priority: Secondary Status: Chronic (4) Dehydration Status: Resolved (5) Edema of left lower extremity Priority: Secondary Status: Chronic (6) Hypertension Priority: Secondary Status: Chronic Qualifiers: Hypertension type: essential hypertension Qualified Code(s): I10 - Essential (primary) hypertension Procedures/tests Complete & Pending: Procedures Performed prior 72 hours Category Date Time Status Venous Doppler [EV venous imaging LE LT] Routine Y 08/07/16 08:28 Completed Date of admission: 08/04/16 18:42 Primary care physician: Yassine Gunn MD Consults: 08/04/16 22:00 Consult to Screen Vent Binder [CONS] Routine Reason for SW Consult: Discharge Planning, Pt states she has Home Health Nursing 08/04/16 22:11 Consult to Occupational Therapy [CONS] Routine Comment: Evaluate, develop and implement POC Reason for Consult: Weakness, s/p hip surgery Consult to Physical Therapy [CONS] Routine Comment: Evaluate, develop and implement POC Reason for Consult: Weakness, s/p hip surgery Hospital course: Ms. Obrien is a 55 year old female - Time Spent with Patient Total time spent providing and/or coordinating discharge services: 39min - Constitutional Vitals: Temp Pulse Resp BP Pulse Ox 98.6 F 76 13 123/74 96 08/07/16 12:11 08/07/16 12:11 08/07/16 12:11 08/07/16 12:11 08/07/16 12:11 - Attending Attestation I examined this patient and my medical decision-making was reviewed with the Resident Physician on 08/07/16. I agree with the documented findings, disposition and treatment plan as described except to the extent set forth below. Ms. Obrien is overall doing better. She is concerned about edema of L leg. Repeat duplex today is neg. No other issues. She is afebrile with stable vitals. Exam Alert. Comfortable Heart reg No wheeze Non pitting edema L leg below knee. I/P 1. Chronic edema L leg - most likely venous stasis related to prior DVT - LEVI benavidez ordered D/C home today.
--- NOTE | 2016-08-07 08:36 | Physician Discharge Referral ---
Home Health/Hosp Referral Info Transfer to: Home Health Attending Provider: Ronny Vizcaino Provider in Charge Post Discharge: PCP - Diagnosis (1) UTI (urinary tract infection) Priority: Primary Status: Acute (2) Dehydration Priority: Primary Status: Acute (3) DVT (deep venous thrombosis) Priority: Secondary Status: Chronic (4) Multiple sclerosis Priority: Secondary Status: Chronic - Respiratory Orders None Smoking Cessation: Smoking cessation has been advised. For more information, call the [place] Tobacco Quit Line at 1-603-VYDQ-NOW. - Diet/Nutrition Diet/Nutrition Orders: Regular - Activity Activity: List: As tolerated with PT - Services Needed Following services are medically necessary services: Nursing, Home Health Aide, Physical Therapy, Occupational Therapy - Transfer Medications Prescriptions: Sulfamethoxazole/Trimeth DS [Bactrim DS] 1 each PO BID #12 tablet Home Medications: BuPROPion XL (24 HR) [Wellbutrin Xl] 150 mg PO QAM #0 10/29/14 [History] Cholecalciferol (Vitamin D3) [Vitamin D3] 50,000 unit PO GUTIERREZ #0 10/29/14 [ History] Multivitamin/Iron/Folic Acid [Centrum Complete Multivit Tab] 1 each PO QPM #0 10/29/14 [History] Omeprazole [PriLOSEC] 20 mg PO BID #0 10/29/14 [History] Pravastatin Sodium [Pravachol] 40 mg PO QPM #0 10/29/14 [History] Baclofen 20 mg PO Q8HR PRN 01/11/16 [History] Loratadine [Allergy Relief] 10 mg PO DAILY PRN 01/11/16 [History] Ondansetron ODT [Zofran ODT] 4 mg SL DAILY PRN 01/11/16 [History] Ranitidine HCl [Zantac] 150 mg PO HS 01/11/16 [History] Docusate [Colace] 100 mg PO BID capsule 01/30/16 [Rx] HYDROcodone/Acet 5/325 mg [[place] 5-325 mg] 1 tab PO Q4H PRN #10 tablet 06/24/16 [Rx] Ferrous Sulfate [Iron] 325 mg PO DAILY 08/05/16 [History] Ibuprofen [Advil] 200 mg PO DAILY PRN 08/05/16 [History] Polyethylene Glycol 3350 [Smoothlax] 17 g PO Q48H PRN 08/05/16 [History] Rivaroxaban [Xarelto] 20 mg PO QAM 08/05/16 [History] Sulfamethoxazole/Trimeth DS [Bactrim DS] 1 each PO BID #12 tablet 08/07/16 [Rx] Allergies/Adverse Reactions: Allergies dextromethorphan [From NyQuil] Allergy (Verified 01/27/16 02:18) Difficulty Breathing doxylamine [From NyQuil] Allergy (Verified 01/27/16 02:18) Difficulty Breathing iodine Allergy (Verified 01/27/16 02:18) See Comments "turns skin into poison" pregabalin [From Lyrica] Allergy (Verified 01/27/16 02:18) Hallucinating pseudoephedrine [From NyQuil] Allergy (Verified 01/27/16 02:18) Difficulty Breathing codeine Adverse Reaction (Verified 01/27/16 02:18) Nausea Certification: Further, I certify that my clinical findings support that this patient is homebound (i.e. absences from home require considerable and taxing effort and are for medical reasons or mormonism services or infrequently or short duration when for other reasons) because: Homebound Reason: Patient requires assistance of a person or device to safely leave home, Leaving home requires considerable and taxing effort due to condition Attestation: My signature below is to certify that this patient is under my care and that I, or nurse practitioner, or a physician's human resources office assistant working with me, has a face-to -face encounter with this patient.
[2016-08-07] MEDS: Cefepime HCl 1,000 MG in D5% in Water (Mini-Bag+) 100 ML IVPB SCH (08:55)
[2016-08-07] MEDS: Acetaminophen 325 MG TABLET PO PRN (09:52)
[2016-08-07 12:15] VITALS: BP 123/74
== END 2016-08-07 14:22 | disposition home health service (06) ==
LOC: EMEROO 15:42 → 3BNU 15:42 → SUATTDRO 18:42 → 3BNU 18:59 → 2ANU 08-07 01:20
PROVIDERS: ADMIT Hospitalist; ATTEND Internal Medicine

== ENCOUNTER 2017-07-15 15:06 | Inpatient (IN) ==
[2017-07-15] MEDS ORDERED: 0.9 % Sodium Chloride 1,000 ML IVC ONE (15:09)
--- NOTE | 2017-07-15 15:20 | Emergency Department Note ---
Disposition Clinical Impression: Acute electrocardiogram changes, Ureterolithiasis UTI (urinary tract infection) Qualifiers: Urinary tract infection type: site unspecified Hematuria presence: without hematuria Qualified Code(s): N39.0 - Urinary tract infection, site not specified Sepsis Qualifiers: Sepsis type: sepsis due to unspecified organism Qualified Code(s): A41.9 - Sepsis, unspecified organism Altered mental status Qualifiers: Altered mental status type: unspecified Qualified Code(s): R41.82 - Altered mental status, unspecified Disposition: Admitted As Inpatient Condition: Fair Referrals: Yassine Gunn MD [Primary Care Provider] - Forms: ED Satisfaction Letter General Adult HPI - General Chief complaint: ED Altered Mental Status Stated complaint: possible UTI Time Seen by Provider: 07/15/17 15:09 Source: patient, EMS Mode of arrival: EMS Limitations: altered mental status Nursing Notes Reviewed: Yes Vital Signs Reviewed: Yes - History of Present Illness HPI Narrative: 56-year-old female past medical history of multiple sclerosis, hyperlipidemia, kidney stones, recurrent UTIs who presents to the ER via EMS due to concern for UTI. EMS reports takes care of her at home. Concern is she was having some foul-smelling urine and a urinary tract infection. Reports that she was hallucinating overnight. Upon arrival the patient is alert and oriented 1 and is unable to provide much of a history. She currently denies any complaints with the exception of lower abdominal pain. She is unsure when her last urinary tract infection or kidney stone was. No other complaints. Pt Subjective Complaint: Concern for UTI Onset (ago): day(s) Location: abdomen Improves with: nothing Worsens with: nothing Associated symptoms: Reports: denies other symptoms Treatments Prior to Arrival: none - Related Data Home Medications Medication Instructions Recorded Confirmed BuPROPion XL (24 HR) [Wellbutrin 150 mg PO QAM #0 10/29/14 02/21/17 Xl] Cholecalciferol (Vitamin D3) 50,000 unit PO GUTIERREZ #0 10/29/14 02/21/17 [Vitamin D3] Multivitamin/Iron/Folic Acid 1 each PO QPM #0 10/29/14 02/21/17 [Centrum Complete Multivit Tab] Omeprazole [PriLOSEC] 20 mg PO BID #0 10/29/14 02/21/17 Loratadine [Allergy Relief] 10 mg PO DAILY PRN 01/11/16 02/21/17 Ondansetron ODT [Zofran ODT] 4 mg SL DAILY PRN 01/11/16 02/21/17 Ranitidine HCl [Zantac] 150 mg PO HS 01/11/16 02/21/17 Polyethylene Glycol 3350 17 g PO Q48H PRN 08/05/16 02/21/17 [Smoothlax] Rivaroxaban [Xarelto] 20 mg PO QAM 08/05/16 02/21/17 Atorvastatin [Lipitor] 40 mg PO HS 02/21/17 02/21/17 Previous Rx's Medication Instructions Recorded Docusate [Colace] 100 mg PO BID PRN #60 capsule 02/21/17 HYDROcodone/Acet 5/325 mg [[place] 1 tab PO Q4H PRN #15 tab 02/21/17 5-325 mg] Allergies Allergy/AdvReac Type Severity Reaction Status Date / Time dextromethorphan Allergy Difficulty Verified 02/21/17 12:39 [From NyQuil] Breathing doxylamine [From NyQuil] Allergy Difficulty Verified 02/21/17 12:39 Breathing pseudoephedrine [From NyQuil] Allergy Difficulty Verified 02/21/17 12:39 Breathing codeine AdvReac Nausea Verified 02/21/17 12:39 iodine AdvReac See Verified 02/21/17 12:39 Comments pregabalin [From Lyrica] AdvReac Hallucinati Verified 02/21/17 12:39 ng Limitations: ROS unobtainable due to patients medical condition Past Medical History - Past Medical History Attestation: Yes The following information was validated with the patient. Source: patient Medical history: Reports: GERD, hyperlipidemia, kidney stones, osteoporosis, other Surgical history: Reports: cholecystectomy, hip replacement, other Psychiatric history: Reports: anxiety, depression - Social History Smoking Status: Former smoker Smokeless Tobacco Status: No Alcohol use: Reports: none Drug use: Reports: none Physical Exam - General Limitations: altered mental status General appearance: alert, in no apparent distress - Head Head exam: atraumatic, normocephalic - Eye Eye exam: Present: normal appearance - ENT ENT exam: normal exam - Neck Neck exam: Present: normal inspection - Chest Chest inspection: Present: normal inspection, symmetric chest wall rise - Respiratory Respiratory exam: Present: normal lung sounds bilaterally - Cardiovascular Cardiovascular exam: Present: normal rhythm, tachycardia, normal heart sounds - Abdominal Exam Abdominal exam: Present: soft, tenderness (Mild suprapubic tenderness.). Absent : Non-Tender, distention, guarding, rigidity - Extremities Exam Extremities exam: Present: normal inspection - Expanded Upper Extremity Exam Shoulder exam: Present: normal inspection Arm exam: Present: normal inspection Elbow exam: Present: normal inspection Forearm/Wrist exam: Present: normal inspection Hand exam: Present: normal inspection - Expanded Lower Extremity Exam Hip/Pelvis exam: Present: normal inspection Upper leg exam: Present: normal inspection Knee exam: Present: normal inspection Lower leg exam: Present: normal inspection Ankle exam: Present: normal inspection Foot/toe exam: Present: normal inspection Neurovascular/Tendon exam: Present: normal capillary refill - Neurological Exam Neurological exam: Present: alert, other (Alert and oriented 1 to self, GCS 14 , nonfocal.) - Skin Skin exam: Present: warm, dry Course Course Narrative: Patient seen and examined at time of arrival. Tachycardic with temperature of 100.3. We will go ahead and treat as SIRS and obtain labs including lactate and blood cultures. Given her altered mentation we will obtain a CT of her head as well as her prior history of kidney stones we will obtain a CT of the abdomen and pelvis for evaluation of potential septic stone. Patient given an initial 1 L of IV fluids with continued resuscitation guided by her hemodynamics and laboratory findings. She will require admission for altered mental status. - Reevaluation(s) Reevaluation #1: Family at bedside. Reports that she started hallucinating overnight. She was recently treated for UTI roughly 1 week ago as an outpatient with oral antibiotics. She was not sick at that time. Patient actually appears improved and is mentating better. Discussed recommendations to admit as well as discussion with urology. Family in agreement. - Consultations Consultation #1: I spoke with the on-call urologist Dr. Bills. Discussed the patient's history imaging labs and vitals and concerns. She is tachycardic with a low-grade fever concerning for developing sepsis. She is otherwise hemodynamically stable. The patient will be admitted to the hospitalist service with neurologic consultation. Vital Signs Temperature 100.1 F H 07/15/17 15:09 Pulse Rate 0 07/15/17 15:09 Respiratory Rate 0 07/15/17 15:09 Blood Pressure 0/0 07/15/17 15:09 O2 Sat by Pulse Oximetry 0 07/15/17 15:09 Temperature 100.1 F H 07/15/17 15:09 Pulse Rate 92 07/15/17 17:04 Respiratory Rate 18 07/15/17 17:04 Blood Pressure 130/79 07/15/17 17:04 O2 Sat by Pulse Oximetry 98 07/15/17 17:04 Oxygen Delivery Oxygen Delivery Room Air Medical Decision Making - MDM Narrative Medical decision making narrative: 56-year-old female presents to the ER due to altered mental status and UTI. A and O 1 initially here which improved throughout her stay. Initial concern for sepsis given her tachycardia and low-grade temp. White count normal. Lactic acid normal. CT scan demonstrated a distal left ureteral stone. Urology was consulted and will follow the patient in the hospital. Reviewed her prior cultures demonstrating Klebsiella and Escherichia coli. Patient given 1 L IV fluids as well as Rocephin. She does have new EKG changes however no chest pain and normal troponin. She is admitted to the hospitalist service for sepsis, ureterolithiasis, altered mental status. - Lab Data Lab results reviewed: Yes I reviewed the patient's lab results. Result diagrams: 07/15/17 15:57 07/15/17 15:57 Lab Results 07/15/17 07/15/17 07/15/17 Range/Units 15:57 15:57 15:57 WBC 9.0 (4.3-11.1) K/mcL RBC 3.88 (3.82-4.97) M/mcL Hgb 11.3 L (11.5-15.4) g/dL Hct 35.2 L (35.3-44.9) % MCV 90.7 (83.0-100.0) fL MCH 29.1 (28.0-33.3) pg MCHC 32.1 (31.6-35.5) g/dL RDW 15.9 H (11.5-14.5) % Plt Count 290 (140-400) K/mcL MPV 10.3 (9.4-12.4) fL Immature Gran % 0.2 (0-4) % Seg Neutrophils % 77.2 % Lymphocytes % 10.2 % Monocytes % 11.4 % Eosinophils % 0.4 % Basophils % 0.6 % Neutrophils # 7.0 (1.6-8.9) K/mcL Lymphocytes # 0.9 (0.6-4.6) K/mcL Monocytes # 1.0 (0.0-1.3) K/mcL Eosinophils # 0.0 (0.0-0.6) K/mcL Basophils # 0.1 (0.0-0.2) K/mcL PT (9.4-12.1) Seconds INR Sodium 140 (136-145) mEq/L Potassium 3.5 (3.5-5.1) mEq/L Chloride 110 H (98-107) mEq/L Carbon Dioxide 21 L (23-29) mEq/L BUN 14 (6-20) mg/dL Creatinine 0.96 (0.60-1.20) mg/dL Est GFR ( Amer) > 60 (> 60) Est GFR (Non-Af Amer) > 60 (> 60) BUN/Creatinine Ratio 15 (6-26) Glucose 103 (70-105) mg/dL Calculated Osmolality 291 (280-300) Lactic Acid (0.5-2.2) mmol/L Calcium 8.9 (8.6-10.3) mg/dL Phosphorus (2.7-4.5) mg/dL Magnesium (1.6-2.6) mg/dL Total Bilirubin 0.7 (0.3-1.0) mg/dL Direct Bilirubin 0.1 (0.0-0.2) mg/dL Indirect Bilirubin 0.6 (0.0-1.2) mg/dL AST 12 L (13-39) Units/L ALT 11 (7-52) Units/L Alkaline Phosphatase 102 (34-104) Units/L Ammonia 21 (16-53) mcmol/L Troponin I < 0.03 (< 0.04) ng/mL Serum Total Protein 6.6 (6.4-8.9) g/dL Albumin 3.5 (3.5-5.7) g/dL Globulin 3.1 (2.4-3.5) g/dL Albumin/Globulin Ratio 1.1 (1.1-2.2) TSH 2.614 (0.340-5.600) mcIU/mL Urine Color (Yellow) Urine Clarity (Clear) Urine pH (5.0-8.0) pH Units Ur Specific [place] (1.010-1.025) Urine Protein (Neg-Trace) mg/dL Urine Glucose (UA) (Normal) mg/dL Urine Ketones (Negative) mg/dL Urine Blood (Negative) Urine Nitrite (Negative) Urine Bilirubin (Negative) Urine Urobilinogen (Normal) mg/dL Ur Leukocyte Esterase (Negative) Urine Microscopic RBC (0-3) per hpf Urine Microscopic WBC (0-3) per hpf Ur Squamous Epith Cells (None-Few) per lpf Urine Bacteria (None-Few) per hpf Ur Culture Indicated? (NO) 07/15/17 07/15/17 07/15/17 Range/Units 15:57 15:57 15:57 WBC (4.3-11.1) K/mcL RBC (3.82-4.97) M/mcL Hgb (11.5-15.4) g/dL Hct (35.3-44.9) % MCV (83.0-100.0) fL MCH (28.0-33.3) pg MCHC (31.6-35.5) g/dL RDW (11.5-14.5) % Plt Count (140-400) K/mcL MPV (9.4-12.4) fL Immature Gran % (0-4) % Seg Neutrophils % % Lymphocytes % % Monocytes % % Eosinophils % % Basophils % % Neutrophils # (1.6-8.9) K/mcL Lymphocytes # (0.6-4.6) K/mcL Monocytes # (0.0-1.3) K/mcL Eosinophils # (0.0-0.6) K/mcL Basophils # (0.0-0.2) K/mcL PT 17.1 H (9.4-12.1) Seconds INR 1.6 Sodium (136-145) mEq/L Potassium (3.5-5.1) mEq/L Chloride (98-107) mEq/L Carbon Dioxide (23-29) mEq/L BUN (6-20) mg/dL Creatinine (0.60-1.20) mg/dL Est GFR ( Amer) (> 60) Est GFR (Non-Af Amer) (> 60) BUN/Creatinine Ratio (6-26) Glucose (70-105) mg/dL Calculated Osmolality (280-300) Lactic Acid 0.7 (0.5-2.2) mmol/L Calcium (8.6-10.3) mg/dL Phosphorus 2.9 (2.7-4.5) mg/dL Magnesium 1.6 (1.6-2.6) mg/dL Total Bilirubin (0.3-1.0) mg/dL Direct Bilirubin (0.0-0.2) mg/dL Indirect Bilirubin (0.0-1.2) mg/dL AST (13-39) Units/L ALT (7-52) Units/L Alkaline Phosphatase (34-104) Units/L Ammonia (16-53) mcmol/L Troponin I (< 0.04) ng/mL Serum Total Protein (6.4-8.9) g/dL Albumin (3.5-5.7) g/dL Globulin (2.4-3.5) g/dL Albumin/Globulin Ratio (1.1-2.2) TSH (0.340-5.600) mcIU/mL Urine Color (Yellow) Urine Clarity (Clear) Urine pH (5.0-8.0) pH Units Ur Specific [place] (1.010-1.025) Urine Protein (Neg-Trace) mg/dL Urine Glucose (UA) (Normal) mg/dL Urine Ketones (Negative) mg/dL Urine Blood (Negative) Urine Nitrite (Negative) Urine Bilirubin (Negative) Urine Urobilinogen (Normal) mg/dL Ur Leukocyte Esterase (Negative) Urine Microscopic RBC (0-3) per hpf Urine Microscopic WBC (0-3) per hpf Ur Squamous Epith Cells (None-Few) per lpf Urine Bacteria (None-Few) per hpf Ur Culture Indicated? (NO) 07/15/17 Range/Units 16:09 WBC (4.3-11.1) K/mcL RBC (3.82-4.97) M/mcL Hgb (11.5-15.4) g/dL Hct (35.3-44.9) % MCV (83.0-100.0) fL MCH (28.0-33.3) pg MCHC (31.6-35.5) g/dL RDW (11.5-14.5) % Plt Count (140-400) K/mcL MPV (9.4-12.4) fL Immature Gran % (0-4) % Seg Neutrophils % % Lymphocytes % % Monocytes % % Eosinophils % % Basophils % % Neutrophils # (1.6-8.9) K/mcL Lymphocytes # (0.6-4.6) K/mcL Monocytes # (0.0-1.3) K/mcL Eosinophils # (0.0-0.6) K/mcL Basophils # (0.0-0.2) K/mcL PT (9.4-12.1) Seconds INR Sodium (136-145) mEq/L Potassium (3.5-5.1) mEq/L Chloride (98-107) mEq/L Carbon Dioxide (23-29) mEq/L BUN (6-20) mg/dL Creatinine (0.60-1.20) mg/dL Est GFR ( Amer) (> 60) Est GFR (Non-Af Amer) (> 60) BUN/Creatinine Ratio (6-26) Glucose (70-105) mg/dL Calculated Osmolality (280-300) Lactic Acid (0.5-2.2) mmol/L Calcium (8.6-10.3) mg/dL Phosphorus (2.7-4.5) mg/dL Magnesium (1.6-2.6) mg/dL Total Bilirubin (0.3-1.0) mg/dL Direct Bilirubin (0.0-0.2) mg/dL Indirect Bilirubin (0.0-1.2) mg/dL AST (13-39) Units/L ALT (7-52) Units/L Alkaline Phosphatase (34-104) Units/L Ammonia (16-53) mcmol/L Troponin I (< 0.04) ng/mL Serum Total Protein (6.4-8.9) g/dL Albumin (3.5-5.7) g/dL Globulin (2.4-3.5) g/dL Albumin/Globulin Ratio (1.1-2.2) TSH (0.340-5.600) mcIU/mL Urine Color Yellow (Yellow) Urine Clarity Turbid A (Clear) Urine pH 7.5 (5.0-8.0) pH Units Ur Specific [place] 1.011 (1.010-1.025) Urine Protein 100 H (Neg-Trace) mg/dL Urine Glucose (UA) Normal (Normal) mg/dL Urine Ketones Negative (Negative) mg/dL Urine Blood Large H (Negative) Urine Nitrite Negative (Negative) Urine Bilirubin Negative (Negative) Urine Urobilinogen Normal (Normal) mg/dL Ur Leukocyte Esterase Large H (Negative) Urine Microscopic RBC TNTC H (0-3) per hpf Urine Microscopic WBC TNTC H (0-3) per hpf Ur Squamous Epith Cells Many H (None-Few) per lpf Urine Bacteria Many H (None-Few) per hpf Ur Culture Indicated? NO. A (NO) - Radiology Data Radiology results reviewed: Yes I reviewed the patient's radiology results. Chest X-Ray 07/15/17 15:09 IMPRESSION: No acute process. D/ / Alfredo Gaxiola MD / Alfredo Gaxiola MD Interpreting Provider: Alfredo Gaxiola MD Abdomen/Pelvis CT 07/15/17 15:12 IMPRESSION: 1. Partially obstructing 3 mm right ureterovesical junction calculus results in mild right hydroureteronephrosis. 2. Nonobstructing calculus inferior pole to midpole region right kidney. 3. Calcific atherosclerotic disease aorta. 4. Left hip arthroplasty results in beam hardening artifact obscuring detail across the lower pelvis. 5. Bones appear osteoporotic. 6. Cholecystectomy. 7. Bilateral L5 spondylolysis with grade 2 spondylolisthesis L5 on S1. D/ / Jd Lyle / Jd Lyle Interpreting Provider: Jd Lyle Head CT 07/15/17 15:12 IMPRESSION: 1. No acute intracranial abnormality. 2. Diffuse cerebral atrophy with chronic small vessel ischemic disease. D/ / Bertrand Ballesteros MD / Bertrand Ballesteros MD Interpreting Provider: Bertrand Ballesteros MD - EKG Data EKG #1 EKG attestation: Yes I reviewed and interpreted this EKG. EKG results narrative: EKG demonstrates sinus rhythm with a rate of 98 bpm. Normal axis. Normal intervals. Normal R-wave progression. There are T-wave inversions in leads V3V6 that appear new from her prior EKG. No gross ST elevations. Changes from previous EKG include T-wave inversions in lateral leads. Dc - Dc Situation: Demographics, MOA Background: Presenting Complaint, Relevant PMH, Meds, & Allergies Assessment: Vital Signs, Course and respsone to treatment, Exam Concerns, Patient/Family Expectation, Pertinant Lab Results Recommendation: Barrier(s) to disposition, Recommendation based on pending studies, treatments, or consults Dc Report Given to: Dr. Martin Irwin Repor Time: 17:13
--- NOTE | 2017-07-15 15:27 | Emergency Department Note ---
Disposition Clinical Impression: UTI (urinary tract infection), Sepsis, Altered mental status, Acute electrocardiogram changes, Ureterolithiasis Disposition: Admitted As Inpatient Condition: Fair General Adult HPI - General Chief complaint: ED Altered Mental Status Stated complaint: possible UTI Time Seen by Provider: 07/15/17 15:09 Source: patient, EMS Mode of arrival: EMS Limitations: altered mental status Nursing Notes Reviewed: Yes Vital Signs Reviewed: Yes - History of Present Illness Location: abdomen Improves with: nothing Worsens with: nothing Associated symptoms: Reports: denies other symptoms Treatments Prior to Arrival: none - Related Data Home Medications Medication Instructions Recorded Confirmed BuPROPion XL (24 HR) [Wellbutrin 150 mg PO QAM #0 10/29/14 07/15/17 Xl] Cholecalciferol (Vitamin D3) 50,000 unit PO GUTIERREZ #0 10/29/14 07/15/17 [Vitamin D3] Multivitamin/Iron/Folic Acid 1 each PO QPM #0 10/29/14 07/15/17 [Centrum Complete Multivit Tab] Omeprazole [PriLOSEC] 20 mg PO DAILY #0 10/29/14 07/15/17 Loratadine [Allergy Relief] 10 mg PO DAILY PRN 01/11/16 07/15/17 Ondansetron ODT [Zofran ODT] 4 mg SL DAILY PRN 01/11/16 07/15/17 Ranitidine HCl [Zantac] 150 mg PO HS 01/11/16 07/15/17 Polyethylene Glycol 3350 17 g PO Q48H PRN 08/05/16 07/15/17 [Smoothlax] Rivaroxaban [Xarelto] 20 mg PO QAM 08/05/16 07/15/17 Atorvastatin [Lipitor] 40 mg PO HS 02/21/17 07/15/17 Tizanidine HCl 2 mg PO TID 07/15/17 07/15/17 Previous Rx's Medication Instructions Recorded Docusate [Colace] 100 mg PO BID PRN #60 capsule 02/21/17 Allergies Allergy/AdvReac Type Severity Reaction Status Date / Time dextromethorphan Allergy Difficulty Verified 02/21/17 12:39 [From NyQuil] Breathing doxylamine [From NyQuil] Allergy Difficulty Verified 02/21/17 12:39 Breathing pseudoephedrine [From NyQuil] Allergy Difficulty Verified 02/21/17 12:39 Breathing codeine AdvReac Nausea Verified 02/21/17 12:39 iodine AdvReac See Verified 02/21/17 12:39 Comments pregabalin [From Lyrica] AdvReac Hallucinati Verified 02/21/17 12:39 ng Past Medical History - Past Medical History Medical history: Reports: GERD, hyperlipidemia, kidney stones, osteoporosis, other Surgical history: Reports: cholecystectomy, hip replacement, other Psychiatric history: Reports: anxiety, depression - Social History Smoking Status: Former smoker Smokeless Tobacco Status: No Alcohol use: Reports: none Drug use: Reports: none Physical Exam - General Limitations: altered mental status General appearance: alert, in no apparent distress Course Vital Signs Temperature 100.1 F H 07/15/17 15:09 Pulse Rate 0 07/15/17 15:09 Respiratory Rate 0 07/15/17 15:09 Blood Pressure 0/0 07/15/17 15:09 O2 Sat by Pulse Oximetry 0 07/15/17 15:09 Temperature 100.1 F H 07/15/17 15:09 Pulse Rate 92 07/15/17 17:04 Respiratory Rate 18 07/15/17 17:04 Blood Pressure 130/79 07/15/17 17:04 O2 Sat by Pulse Oximetry 98 07/15/17 17:04 Oxygen Delivery Oxygen Delivery Room Air Medical Decision Making - MDM Narrative Medical decision making narrative: This documentation is done with the assistance of Dragon dictation. Despite efforts made to ensure accuracy, there may be inaccuracies in medical office specialist or spelling and typographical errors. Chest X-Ray 07/15/17 15:09 IMPRESSION: No acute process. D/ / Alfredo Gaxiola MD / Alfredo Gaxiola MD Interpreting Provider: Alfredo Gaxiola MD Abdomen/Pelvis CT 07/15/17 15:12 IMPRESSION: 1. Partially obstructing 3 mm right ureterovesical junction calculus results in mild right hydroureteronephrosis. 2. Nonobstructing calculus inferior pole to midpole region right kidney. 3. Calcific atherosclerotic disease aorta. 4. Left hip arthroplasty results in beam hardening artifact obscuring detail across the lower pelvis. 5. Bones appear osteoporotic. 6. Cholecystectomy. 7. Bilateral L5 spondylolysis with grade 2 spondylolisthesis L5 on S1. D/ / Jd Lyle / Jd Lyle Interpreting Provider: Jd Lyle Head CT 07/15/17 15:12 IMPRESSION: 1. No acute intracranial abnormality. 2. Diffuse cerebral atrophy with chronic small vessel ischemic disease. D/ / Bertrand Ballesteros MD / Bertrand Ballesteros MD Interpreting Provider: Bertrand Ballesteros MD 1635 hrs.: Waiting on troponin. Patient does have flipped complexes on her EKGs that are new. She denies any chest pain. We will wait see order troponin and then we may need to discuss her with cardiology. She will need admitted due to her CT of her abdomen along with her fever. We will also start her on antibiotics. 1700 hrs.: We will start her on antibiotics. We spoke with urology. They will consult. She will be admitted to medicine. Her troponin is negative. 1820 hrs.: Hospice is accepted patient for admission. - Lab Data Result diagrams: 07/15/17 15:57 07/15/17 15:57 Lab Results 07/15/17 07/15/17 07/15/17 Range/Units 15:57 15:57 15:57 WBC 9.0 (4.3-11.1) K/mcL RBC 3.88 (3.82-4.97) M/mcL Hgb 11.3 L (11.5-15.4) g/dL Hct 35.2 L (35.3-44.9) % MCV 90.7 (83.0-100.0) fL MCH 29.1 (28.0-33.3) pg MCHC 32.1 (31.6-35.5) g/dL RDW 15.9 H (11.5-14.5) % Plt Count 290 (140-400) K/mcL MPV 10.3 (9.4-12.4) fL Immature Gran % 0.2 (0-4) % Seg Neutrophils % 77.2 % Lymphocytes % 10.2 % Monocytes % 11.4 % Eosinophils % 0.4 % Basophils % 0.6 % Neutrophils # 7.0 (1.6-8.9) K/mcL Lymphocytes # 0.9 (0.6-4.6) K/mcL Monocytes # 1.0 (0.0-1.3) K/mcL Eosinophils # 0.0 (0.0-0.6) K/mcL Basophils # 0.1 (0.0-0.2) K/mcL PT (9.4-12.1) Seconds INR Sodium 140 (136-145) mEq/L Potassium 3.5 (3.5-5.1) mEq/L Chloride 110 H (98-107) mEq/L Carbon Dioxide 21 L (23-29) mEq/L BUN 14 (6-20) mg/dL Creatinine 0.96 (0.60-1.20) mg/dL Est GFR ( Amer) > 60 (> 60) Est GFR (Non-Af Amer) > 60 (> 60) BUN/Creatinine Ratio 15 (6-26) Glucose 103 (70-105) mg/dL Calculated Osmolality 291 (280-300) Lactic Acid (0.5-2.2) mmol/L Calcium 8.9 (8.6-10.3) mg/dL Phosphorus (2.7-4.5) mg/dL Magnesium (1.6-2.6) mg/dL Total Bilirubin 0.7 (0.3-1.0) mg/dL Direct Bilirubin 0.1 (0.0-0.2) mg/dL Indirect Bilirubin 0.6 (0.0-1.2) mg/dL AST 12 L (13-39) Units/L ALT 11 (7-52) Units/L Alkaline Phosphatase 102 (34-104) Units/L Ammonia 21 (16-53) mcmol/L Troponin I < 0.03 (< 0.04) ng/mL Serum Total Protein 6.6 (6.4-8.9) g/dL Albumin 3.5 (3.5-5.7) g/dL Globulin 3.1 (2.4-3.5) g/dL Albumin/Globulin Ratio 1.1 (1.1-2.2) TSH 2.614 (0.340-5.600) mcIU/mL Urine Color (Yellow) Urine Clarity (Clear) Urine pH (5.0-8.0) pH Units Ur Specific [place] (1.010-1.025) Urine Protein (Neg-Trace) mg/dL Urine Glucose (UA) (Normal) mg/dL Urine Ketones (Negative) mg/dL Urine Blood (Negative) Urine Nitrite (Negative) Urine Bilirubin (Negative) Urine Urobilinogen (Normal) mg/dL Ur Leukocyte Esterase (Negative) Urine Microscopic RBC (0-3) per hpf Urine Microscopic WBC (0-3) per hpf Ur Squamous Epith Cells (None-Few) per lpf Urine Bacteria (None-Few) per hpf Ur Culture Indicated? (NO) 07/15/17 07/15/17 07/15/17 Range/Units 15:57 15:57 15:57 WBC (4.3-11.1) K/mcL RBC (3.82-4.97) M/mcL Hgb (11.5-15.4) g/dL Hct (35.3-44.9) % MCV (83.0-100.0) fL MCH (28.0-33.3) pg MCHC (31.6-35.5) g/dL RDW (11.5-14.5) % Plt Count (140-400) K/mcL MPV (9.4-12.4) fL Immature Gran % (0-4) % Seg Neutrophils % % Lymphocytes % % Monocytes % % Eosinophils % % Basophils % % Neutrophils # (1.6-8.9) K/mcL Lymphocytes # (0.6-4.6) K/mcL Monocytes # (0.0-1.3) K/mcL Eosinophils # (0.0-0.6) K/mcL Basophils # (0.0-0.2) K/mcL PT 17.1 H (9.4-12.1) Seconds INR 1.6 Sodium (136-145) mEq/L Potassium (3.5-5.1) mEq/L Chloride (98-107) mEq/L Carbon Dioxide (23-29) mEq/L BUN (6-20) mg/dL Creatinine (0.60-1.20) mg/dL Est GFR ( Amer) (> 60) Est GFR (Non-Af Amer) (> 60) BUN/Creatinine Ratio (6-26) Glucose (70-105) mg/dL Calculated Osmolality (280-300) Lactic Acid 0.7 (0.5-2.2) mmol/L Calcium (8.6-10.3) mg/dL Phosphorus 2.9 (2.7-4.5) mg/dL Magnesium 1.6 (1.6-2.6) mg/dL Total Bilirubin (0.3-1.0) mg/dL Direct Bilirubin (0.0-0.2) mg/dL Indirect Bilirubin (0.0-1.2) mg/dL AST (13-39) Units/L ALT (7-52) Units/L Alkaline Phosphatase (34-104) Units/L Ammonia (16-53) mcmol/L Troponin I (< 0.04) ng/mL Serum Total Protein (6.4-8.9) g/dL Albumin (3.5-5.7) g/dL Globulin (2.4-3.5) g/dL Albumin/Globulin Ratio (1.1-2.2) TSH (0.340-5.600) mcIU/mL Urine Color (Yellow) Urine Clarity (Clear) Urine pH (5.0-8.0) pH Units Ur Specific [place] (1.010-1.025) Urine Protein (Neg-Trace) mg/dL Urine Glucose (UA) (Normal) mg/dL Urine Ketones (Negative) mg/dL Urine Blood (Negative) Urine Nitrite (Negative) Urine Bilirubin (Negative) Urine Urobilinogen (Normal) mg/dL Ur Leukocyte Esterase (Negative) Urine Microscopic RBC (0-3) per hpf Urine Microscopic WBC (0-3) per hpf Ur Squamous Epith Cells (None-Few) per lpf Urine Bacteria (None-Few) per hpf Ur Culture Indicated? (NO) 07/15/17 Range/Units 16:09 WBC (4.3-11.1) K/mcL RBC (3.82-4.97) M/mcL Hgb (11.5-15.4) g/dL Hct (35.3-44.9) % MCV (83.0-100.0) fL MCH (28.0-33.3) pg MCHC (31.6-35.5) g/dL RDW (11.5-14.5) % Plt Count (140-400) K/mcL MPV (9.4-12.4) fL Immature Gran % (0-4) % Seg Neutrophils % % Lymphocytes % % Monocytes % % Eosinophils % % Basophils % % Neutrophils # (1.6-8.9) K/mcL Lymphocytes # (0.6-4.6) K/mcL Monocytes # (0.0-1.3) K/mcL Eosinophils # (0.0-0.6) K/mcL Basophils # (0.0-0.2) K/mcL PT (9.4-12.1) Seconds INR Sodium (136-145) mEq/L Potassium (3.5-5.1) mEq/L Chloride (98-107) mEq/L Carbon Dioxide (23-29) mEq/L BUN (6-20) mg/dL Creatinine (0.60-1.20) mg/dL Est GFR ( Amer) (> 60) Est GFR (Non-Af Amer) (> 60) BUN/Creatinine Ratio (6-26) Glucose (70-105) mg/dL Calculated Osmolality (280-300) Lactic Acid (0.5-2.2) mmol/L Calcium (8.6-10.3) mg/dL Phosphorus (2.7-4.5) mg/dL Magnesium (1.6-2.6) mg/dL Total Bilirubin (0.3-1.0) mg/dL Direct Bilirubin (0.0-0.2) mg/dL Indirect Bilirubin (0.0-1.2) mg/dL AST (13-39) Units/L ALT (7-52) Units/L Alkaline Phosphatase (34-104) Units/L Ammonia (16-53) mcmol/L Troponin I (< 0.04) ng/mL Serum Total Protein (6.4-8.9) g/dL Albumin (3.5-5.7) g/dL Globulin (2.4-3.5) g/dL Albumin/Globulin Ratio (1.1-2.2) TSH (0.340-5.600) mcIU/mL Urine Color Yellow (Yellow) Urine Clarity Turbid A (Clear) Urine pH 7.5 (5.0-8.0) pH Units Ur Specific [place] 1.011 (1.010-1.025) Urine Protein 100 H (Neg-Trace) mg/dL Urine Glucose (UA) Normal (Normal) mg/dL Urine Ketones Negative (Negative) mg/dL Urine Blood Large H (Negative) Urine Nitrite Negative (Negative) Urine Bilirubin Negative (Negative) Urine Urobilinogen Normal (Normal) mg/dL Ur Leukocyte Esterase Large H (Negative) Urine Microscopic RBC TNTC H (0-3) per hpf Urine Microscopic WBC TNTC H (0-3) per hpf Ur Squamous Epith Cells Many H (None-Few) per lpf Urine Bacteria Many H (None-Few) per hpf Ur Culture Indicated? NO. A (NO) Attestation Statement - Attestation Attestation: I examined this patient and my medical decision-making was reviewed with the Resident Physician. I agree with the documented findings, disposition and treatment plan as described except to the extent set forth below. Patient was seen and evaluated on arrival with Dr. Rowe and myself, I agree with his evaluation and management plan, supervised care the patient throughout the stay. Patient comes in from EMS with altered mental status. Possible fever at home and possible UTI. History of frequent UTIs. History of kidney stones also. She is not complain of any pain. She thinks is 2011. She has no other complaints here. We will order a workup and consider admission for her.
[2017-07-15] MEDS ORDERED: Acetaminophen 325 MG TABLET PO ONE (16:03)
[2017-07-15 16:22] LABS: Basophils # 0.1 K/mcL (0.0-0.2); Basophils % 0.6 %; Eosinophils % 0.4 %; Hematocrit 35.2 % (35.3-44.9); Hemoglobin 11.3 g/dL (11.5-15.4); Immature Granulocytes % 0.2 % (0-4); Lymphocytes # 0.9 K/mcL (0.6-4.6); Lymphocytes % 10.2 %; Mean Corpuscular HGB Conc 32.1 g/dL (31.6-35.5); Mean Corpuscular Hemoglobin 29.1 pg (28.0-33.3); Mean Corpuscular Volume 90.7 fL (83.0-100.0); Mean Platelet Volume 10.3 fL (9.4-12.4); Monocytes % 11.4 %; Platelet Count 290 K/mcL (140-400); Red Blood Count 3.88 M/mcL (3.82-4.97); Red Cell Distribution Width 15.9 % (11.5-14.5); Segmented Neutrophils % 77.2 %
[2017-07-15 16:25] LABS: INR 1.6; Prothrombin Time 17.1 Seconds (9.4-12.1)
[2017-07-15 16:27] LABS: Bilirubin,Urine Negative (Negative); Blood,Urine Large (Negative); Clarity,Urine Turbid (Clear); Color,Urine Yellow (Yellow); Glucose,Urine (UA) Normal (Normal); Ketones,Urine Negative (Negative); Leukocyte Esterase,Urine Large (Negative); Nitrite,Urine Negative (Negative); PH,Urine 7.5 pH Units (5.0-8.0); Protein,Urine 100 mg/dL (Neg-Trace); Specific Gravity,Urine 1.011 (1.010-1.025); Urobilinogen,Urine Normal (Normal)
[2017-07-15 16:30] LABS: Bacteria,Urine Many per hpf (None-Few); RBC,Urine TNTC per hpf (0-3); Squamous Epithelial Cell,Urine Many per lpf (None-Few); WBC,Urine TNTC per hpf (0-3)
[2017-07-15 16:34] LABS: Magnesium 1.6 mg/dL (1.6-2.6); Phosphorous 2.9 mg/dL (2.7-4.5)
[2017-07-15 16:36] LABS: Troponin I < 0.03 ng/mL (< 0.04)
[2017-07-15 16:37] LABS: Alanine Aminotransferase 11 Units/L (7-52); Albumin 3.5 g/dL (3.5-5.7); Albumin/Globulin Ratio 1.1 (1.1-2.2); Alkaline Phosphatase 102 Units/L (34-104); Aspartate Amino Transferase 12 Units/L (13-39); BUN/Creatinine Ratio 15 (6-26); Bilirubin,Direct 0.1 mg/dL (0.0-0.2); Bilirubin,Indirect 0.6 mg/dL (0.0-1.2); Bilirubin,Total 0.7 mg/dL (0.3-1.0); Blood Urea Nitrogen 14 mg/dL (6-20); Calcium 8.9 mg/dL (8.6-10.3); Carbon Dioxide 21 mEq/L (23-29); Chloride 110 mEq/L (98-107); Globulin 3.1 g/dL (2.4-3.5); Glucose 103 mg/dL (70-105); Osmolality,Calculated 291 (280-300); Potassium 3.5 mEq/L (3.5-5.1); Sodium 140 mEq/L (136-145); Total Protein 6.6 g/dL (6.4-8.9); eGFR For African Americans > 60 (> 60); eGFR For Non-African Americans > 60 (> 60)
[2017-07-15 16:50] LABS: Thyroid Stimulating Hormone 2.614 mcIU/mL (0.340-5.600)
[2017-07-15] MEDS ORDERED: cefTRIAXone 1,000 MG in Water for inj. (sterile) 20 ML 10 ML IVP ONE (16:59)
--- NOTE | 2017-07-15 21:21 | Internal Med History&Physical ---
<Kevin Vasquez - Last Filed: 07/15/17 23:07> Date of Encounter: 07/15/17 Time of Encounter: 20:00 Internal Medicine - H&P: HPI Chief complaint: Confusion, urinary retention History of present illness: Ms. Obrien is a 56 year old female PMHx DVT on Xarelto, recurrent UTIs, MS, dyslipidemia, kidney stones, presents with complaints of confusion. Patient is AOx3 but answers questions slowly and overall poor historian. She reports that this is not her basely and that she has been more confused. She lives with her , who takes care of her. She has had foul-smelling urine and reports bought her hear for evaluation. Unable to tell me whether she has chronic catheter or not. Denies dysuria, hematuria, difficulty voiding. Does admit to lower abdominal pain, fever and chills, but denies nausea, vomiting. Patient reports that she has had ureter stones in the past and knows Dr. Bills well. She has had multiple procedures in the past to remove stones but unable to recall when was the last time. Denies any bleeding. Appetite is good. Denies CP, SOB, headaches, vision changes, cough, recent illness. Past Med Surg Social Fam HX - Past Medical History Medical history: GERD, hyperlipidemia, kidney stones, osteoporosis, other Psychiatric history: anxiety, depression - Past Surgical History Surgical History: cholecystectomy, hip replacement, other - Social History Smoking Status: Former smoker Smokeless Tobacco Status: No Alcohol use: none Drug use: none - Family History Brother Hx Family Cancer: Yes Mother Living Status: Hx Family Cardiac Disorders: Yes Father Family Member Ethnicity: Non- Living Status: Hx Family Cardiac Disorders: Yes (heart diease, [place],) Hx Family Respiratory Disorders: Yes (copd) Hx Family Cancer: Yes (stomach) Hx Family GI Disorders: Yes Hx Family Endocrine Disorder: No Hx Family Neuromuscular Disorders: No Hx Family Neurologic Disorders: No Hx Family HEENT Disorders: No Hx Family Autoimmune Disorders: No Son Living Status: Still Living Hx Family Cardiac Disorders: No Hx Family Respiratory Disorders: No Hx Family Cancer: No Hx Family GI Disorders: No Hx Family Endocrine Disorder: No Hx Family Neuromuscular Disorders: No Hx Family Neurologic Disorders: No Hx Family HEENT Disorders: No Hx Family Autoimmune Disorders: No Internal Medicine - H&P: Meds BuPROPion XL (24 HR) [Wellbutrin Xl] 150 mg PO QAM #0 10/29/14 [History] Cholecalciferol (Vitamin D3) [Vitamin D3] 50,000 unit PO GUTIERREZ #0 10/29/14 [History ] Multivitamin/Iron/Folic Acid [Centrum Complete Multivit Tab] 1 each PO QPM #0 [History] Omeprazole [PriLOSEC] 20 mg PO DAILY #0 10/29/14 [History] Loratadine [Allergy Relief] 10 mg PO DAILY PRN 01/11/16 [History] Ondansetron ODT [Zofran ODT] 4 mg SL DAILY PRN 01/11/16 [History] Ranitidine HCl [Zantac] 150 mg PO HS 01/11/16 [History] Polyethylene Glycol 3350 [Smoothlax] 17 g PO Q48H PRN 08/05/16 [History] Rivaroxaban [Xarelto] 20 mg PO QAM 08/05/16 [History] Atorvastatin [Lipitor] 40 mg PO HS 02/21/17 [History] Docusate [Colace] 100 mg PO BID PRN #60 capsule 02/21/17 [Rx] Tizanidine HCl 2 mg PO TID 07/15/17 [History] 3 Allergy/AdvReac Type Severity Reaction Status Date / Time dextromethorphan Allergy Difficulty Verified 02/21/17 12:39 [From NyQuil] Breathing doxylamine [From NyQuil] Allergy Difficulty Verified 02/21/17 12:39 Breathing pseudoephedrine [From NyQuil] Allergy Difficulty Verified 02/21/17 12:39 Breathing codeine AdvReac Nausea Verified 02/21/17 12:39 iodine AdvReac See Verified 02/21/17 12:39 Comments pregabalin [From Lyrica] AdvReac Hallucinati Verified 02/21/17 12:39 ng All Systems PM: A 10-system review of systems was performed and is negative for pertinent findings except as documented above in the HPI. - Constitutional Constitutional: chills, fever(s), no night sweats - EENT Eyes: no change in vision, no discharge, no pain, no photophobia Ears: no ear discharge, no ear pain, no tinnitus Nose, mouth and throat: no dysphagia, no nasal discharge, no neck pain, no sore throat - Cardiovascular Cardiovascular ROS IM: no chest pain, no diaphoresis, no dyspnea, no lightheadedness, no palpitations, no syncope - Respiratory Respiratory: no cough, no dyspnea, no wheezing, no excessive phlegm production - Gastrointestinal Gastrointestinal: abdominal pain, no diarrhea, no hematemesis, no hematochezia, no melena, no nausea, no vomiting - Genitourinary Genitourinary: no change in urinary stream, no dysuria, no flank pain, no hematuria - Musculoskeletal Musculoskeletal ROS IM: no numbness, no tingling - Integumentary Integumentary IM: no rash, no unusual bruising - Neurological Neurological ROS: confusion, no convulsions, no focal weakness, no loss of vision, no numbness, no tingling, no tremor(s) - Psychiatric Psychiatric: confusion, no auditory hallucinations, no homicidal ideation, no suicidal ideation, no visual hallucinations - Hematologic/Lymphatic Hematologic/Lymphatic: no easy bruising - Constitutional Vitals: Temp Pulse Resp BP Pulse Ox 100.1 F H 92 18 123/81 98 07/15/17 15:09 07/15/17 17:04 07/15/17 18:32 07/15/17 18:32 07/15/17 17:04 General appearance: Present: A&O X 3, no acute distress Exam: delayed thought process, but answers questions appropriately. - Head Head exam: Present: atraumatic - Eye Eye exam: Present: PERRL, conjuntiva pink, sclera anicteric Pupils: Present: PERRL - Neck Neck exam general surgery: Present: supple, trachea midline. Absent: lymphadenopathy - Respiratory Respiratory exam: Present: CTAB. Absent: accessory muscle use, rales, rhonchi, wheezes - Cardiovascular Cardiovascular exam: Present: RRR, +S1, +S2. Absent: diastolic murmur, gallop, rubs, systolic murmur - GI/Abdominal GI/Abdominal exam: Present: normal bowel sounds, soft, no peritoneal signs. Absent: distended, tenderness - Additional comments: catheter with tea colored urine - Extremities Exam Extremities exam: Present: warm, radial pulses palpable and symmetrical. Absent : calf tenderness, cyanotic, pedal edema - Neurological Exam Neurological exam: Present: alert, oriented X3, no focal deficits, strengths equal and symetr throughout. Absent: motor sensory deficit, pronater drift, facial droop, speech deficit - Skin Skin exam: Present: dry, intact Internal Med - H&P Results - Labs CBC & Chem 7: 07/15/17 15:57 07/15/17 15:57 - Assessment and plan (1) Hydronephrosis Current Visit: Yes Status: Acute Assessment and plan: Treat per above Qualifiers: Hydronephrosis type: with renal calculous obstruction Qualified Code(s): N13.2 - Hydronephrosis with renal and ureteral calculous obstruction (2) Ureterolithiasis Current Visit: Yes Status: Acute Assessment and plan: Treat per above. pending urology consult. (3) UTI (urinary tract infection) Current Visit: No Status: Acute Assessment and plan: secondary to right uterovesical calculus. Continue Ceftriaxone, Pending urine culture. Qualifiers: Urinary tract infection type: acute cystitis Hematuria presence: without hematuria Qualified Code(s): N30.00 - Acute cystitis without hematuria (4) Multiple sclerosis Current Visit: No Status: Chronic Assessment and plan: Chronic. Continue home medications. (5) Hypertension Current Visit: No Status: Chronic Assessment and plan: Controlled. Continue home meds. Qualifiers: Hypertension type: essential hypertension Qualified Code(s): I10 - Essential (primary) hypertension (6) DVT prophylaxis Current Visit: No Status: Acute Assessment and plan: SCDs Hold Xeralto pending urology consult (7) Hyperlipidemia Current Visit: No Status: Chronic Assessment and plan: Continue home statin Qualifiers: Hyperlipidemia type: mixed hyperlipidemia Qualified Code(s): E78.2 - Mixed hyperlipidemia (8) Metabolic encephalopathy Current Visit: Yes Status: Acute Assessment and plan: Patient with history of recurrent UTIs and kidney stones presents with foul smelling urine and confusion. AOx3 but has difficulty answering questions, this is not her baseline. Reports worsening confusion over the last week. Patient has recurrent history of kidney stones requiring procedural removal. CXR negative, CT head unremarkable with chronic small vessel ischemia. CT abdomen demonstrated 3mm right uterovesical calculus and mild right hydroureteronephrosis. She presented with temperature 100.1 and received dose of tylenol. UA + leukocyte esterase, negative nitrite. Admit inpatient in the setting of metabolic encephalopathy secondary to recurrent UTI. Continue Rocephin. start lactate ringer Consult urology for recommendations, hold Xeralto for possible procedure tomorrow. Keep patient NPO - Time Spent With Patient Total time spent is greater than 50% in coordination of care (as documented) at patient's floor/unit and/or counseling patient: Greater than 35 minutes <Dorothy Woodson - Last Filed: 07/16/17 02:45> Date of Encounter: 07/16/17 Internal Medicine - H&P: HPI History of present illness: Ms. Obrien is a 56 year old female All Systems PM: A 10-system review of systems was performed and is negative for pertinent findings except as documented above in the HPI. - Constitutional Vitals: Temp Pulse Resp BP Pulse Ox 100.1 F H 92 18 123/81 98 07/15/17 15:09 07/15/17 17:04 07/15/17 18:32 07/15/17 18:32 07/15/17 17:04 Internal Med - H&P Results - Labs CBC & Chem 7: 07/15/17 15:57 07/15/17 15:57 Labs: Cardiac Enzymes 07/15/17 Range/Units 22:09 Troponin I < 0.03 (< 0.04) ng/mL - Attending Attestation I have seen and examined patient independently. I have discussed with resident physician Dr. Vasquez regarding the management plan. Agree with the documentation. - Assessment and plan (1) UTI (urinary tract infection) Current Visit: No Status: Acute Qualifiers: Urinary tract infection type: acute cystitis Hematuria presence: without hematuria Qualified Code(s): N30.00 - Acute cystitis without hematuria (2) Multiple sclerosis Current Visit: No Status: Chronic (3) Hypertension Current Visit: No Status: Chronic Qualifiers: Hypertension type: essential hypertension Qualified Code(s): I10 - Essential (primary) hypertension (4) DVT prophylaxis Current Visit: No Status: Acute (5) Hyperlipidemia Current Visit: No Status: Chronic Qualifiers: Hyperlipidemia type: mixed hyperlipidemia Qualified Code(s): E78.2 - Mixed hyperlipidemia (6) Hydronephrosis Current Visit: Yes Status: Acute Qualifiers: Hydronephrosis type: with renal calculous obstruction Qualified Code(s): N13.2 - Hydronephrosis with renal and ureteral calculous obstruction (7) Ureterolithiasis Current Visit: Yes Status: Acute (8) Metabolic encephalopathy Current Visit: Yes Status: Acute - Time Spent With Patient Total time spent is greater than 50% in coordination of care (as documented) at patient's floor/unit and/or counseling patient:
[2017-07-15] MEDS ORDERED: Acetaminophen 325 MG TABLET PO PRN (21:24)
[2017-07-15] MEDS ORDERED: Naloxone 0.4 MG/ML INJ IVP PRN (21:24)
[2017-07-15] MEDS ORDERED: Loratadine 10 MG TABLET PO PRN (21:36)
[2017-07-15] MEDS ORDERED: Ondansetron ODT 4 MG TAB.RAPDIS SL PRN (21:36)
[2017-07-16] MEDS: Ringers Solution, Lactated 1,000 ML IVC SCH ×4 (01:00→21:07)
[2017-07-16 04:17] LABS: Basophils # 0.1 K/mcL (0.0-0.2); Basophils % 0.5 %; Eosinophils % 0.1 %; Hematocrit 32.2 % (35.3-44.9); Hemoglobin 10.2 g/dL (11.5-15.4); Immature Granulocytes % 0.2 % (0-4); Lymphocytes # 0.7 K/mcL (0.6-4.6); Lymphocytes % 6.5 %; Mean Corpuscular HGB Conc 31.7 g/dL (31.6-35.5); Mean Corpuscular Hemoglobin 28.8 pg (28.0-33.3); Mean Platelet Volume 10.1 fL (9.4-12.4); Monocytes # 0.8 K/mcL (0.0-1.3); Monocytes % 7.9 %; Neutrophils # 8.7 K/mcL (1.6-8.9); Platelet Count 258 K/mcL (140-400); Red Blood Count 3.54 M/mcL (3.82-4.97); Red Cell Distribution Width 15.5 % (11.5-14.5); Segmented Neutrophils % 84.8 %
[2017-07-16 04:37] LABS: BUN/Creatinine Ratio 17 (6-26); Blood Urea Nitrogen 13 mg/dL (6-20); Calcium 8.7 mg/dL (8.6-10.3); Carbon Dioxide 19 mEq/L (23-29); Chloride 115 mEq/L (98-107); Glucose 91 mg/dL (70-105); Osmolality,Calculated 296 (280-300); Potassium 3.7 mEq/L (3.5-5.1); Sodium 143 mEq/L (136-145); eGFR For African Americans > 60 (> 60); eGFR For Non-African Americans > 60 (> 60)
--- NOTE | 2017-07-16 08:47 | Electrocardiograph Report ---
[facility] Computer Test Date: 2017-07-15 Pat Name: Winsome Obrien Department: 103 Room: 2SH31 Gender: F Stock Tracer: : 1960 Requested By: Hector Goncalves Order Number: [id number] Reading MD: Avni Boss Measurements Intervals Johnson Rate: 98 P: 50 IL: 143 QRS: 28 QRSD: 90 T: 215 QT: 313 QTc: 368 Interpretive Statements SINUS RHYTHM ST DEVIATION AND MODERATE T-WAVE ABNORMALITY, CONSIDER ANTEROLATERAL ISCHEMIA [- 0.1+ mV T WAVE IN V3-V6] ST DEVIATION AND MODERATE T-WAVE ABNORMALITY, CONSIDER INFERIOR ISCHEMIA [-0.1+ mV T WAVE IN II/aVF] WARNING: DATA QUALITY MAY AFFECT INTERPRETATION Electronically Signed On 07-16-2017 8:45:43 EDT by Avni Boss
[2017-07-16] MEDS ORDERED: cefTRIAXone 1,000 MG in Water for inj. (sterile) 20 ML 10 ML IVP SCH ×2 (09:00→15:00)
[2017-07-16] MEDS ORDERED: tiZANidine 4 MG TABLET PO SCH (09:00)
[2017-07-16] MEDS ORDERED: *HR* Rivaroxaban 10 MG TABLET PO SCH (09:00)
[2017-07-16] MEDS ORDERED: BuPROPion XL (24 HR) 150 MG TABLET PO SCH (09:00)
--- NOTE | 2017-07-16 10:57 | Urology - Consult Note ---
Date of Encounter: 07/16/17 Time of Encounter: 10:54 - Assessment and Plan (1) Sepsis Current Visit: Yes Status: Acute Assessment and plan: Continue broad-spectrum antibiotics until cultures return. Qualifiers: Sepsis type: sepsis due to unspecified organism Qualified Code(s): A41.9 - Sepsis, unspecified organism (2) Ureterolithiasis Current Visit: Yes Status: Acute Assessment and plan: We will plan on either right ureteral stent placement or right ureteroscopic stone extraction today in the operating room. If large amount of pus seen coming from the right ureteral orifice after wire placement will place stent. Otherwise we will plan on removing stone. Urology CN:HPI Consult date: 07/16/17 Reason for consult Urology: Hydronephrosis Requesting physician: Kevin Vasquez History of present illness: Winsome is a 56-year-old female well-known to urology service for recurrent kidney stones. Patient presents back to the emergency Department secondary to right-sided flank pain with confusion and fever. Patient was found to have a distal 3-4 mm ureteral stone on the right side. Patient denies significant pain at this time. No current nausea or vomiting. Past Med Surg Social Fam HX - Past Medical History Medical history: GERD, hyperlipidemia, kidney stones, osteoporosis, other Psychiatric history: anxiety, depression - Past Surgical History Surgical History: cholecystectomy, hip replacement, other - Social History Smoking Status: Former smoker Smokeless Tobacco Status: No Alcohol use: none Drug use: none - Family History Brother Hx Family Cancer: Yes Mother Living Status: Hx Family Cardiac Disorders: Yes Father Family Member Ethnicity: Non- Living Status: Hx Family Cardiac Disorders: Yes (heart diease, [place],) Hx Family Respiratory Disorders: Yes (copd) Hx Family Cancer: Yes (stomach) Hx Family GI Disorders: Yes Hx Family Endocrine Disorder: No Hx Family Neuromuscular Disorders: No Hx Family Neurologic Disorders: No Hx Family HEENT Disorders: No Hx Family Autoimmune Disorders: No Son Living Status: Still Living Hx Family Cardiac Disorders: No Hx Family Respiratory Disorders: No Hx Family Cancer: No Hx Family GI Disorders: No Hx Family Endocrine Disorder: No Hx Family Neuromuscular Disorders: No Hx Family Neurologic Disorders: No Hx Family HEENT Disorders: No Hx Family Autoimmune Disorders: No Medications and Allergies BuPROPion XL (24 HR) [Wellbutrin Xl] 150 mg PO QAM #0 10/29/14 [History] Cholecalciferol (Vitamin D3) [Vitamin D3] 50,000 unit PO GUTIERREZ #0 10/29/14 [History ] Multivitamin/Iron/Folic Acid [Centrum Complete Multivit Tab] 1 each PO QPM #0 [History] Omeprazole [PriLOSEC] 20 mg PO DAILY #0 10/29/14 [History] Loratadine [Allergy Relief] 10 mg PO DAILY PRN 01/11/16 [History] Ondansetron ODT [Zofran ODT] 4 mg SL DAILY PRN 01/11/16 [History] Ranitidine HCl [Zantac] 150 mg PO HS 01/11/16 [History] Polyethylene Glycol 3350 [Smoothlax] 17 g PO Q48H PRN 08/05/16 [History] Rivaroxaban [Xarelto] 20 mg PO QAM 08/05/16 [History] Atorvastatin [Lipitor] 40 mg PO HS 02/21/17 [History] Docusate [Colace] 100 mg PO BID PRN #60 capsule 02/21/17 [Rx] Tizanidine HCl 2 mg PO TID 07/15/17 [History] 3 Allergy/AdvReac Type Severity Reaction Status Date / Time dextromethorphan Allergy Difficulty Verified 02/21/17 12:39 [From NyQuil] Breathing doxylamine [From NyQuil] Allergy Difficulty Verified 02/21/17 12:39 Breathing pseudoephedrine [From NyQuil] Allergy Difficulty Verified 02/21/17 12:39 Breathing codeine AdvReac Nausea Verified 02/21/17 12:39 iodine AdvReac See Verified 02/21/17 12:39 Comments pregabalin [From Lyrica] AdvReac Hallucinati Verified 02/21/17 12:39 ng Review of Systems - Constitutional fever(s), no chills - EENT Nose, mouth and throat: no dizziness - Cardiovascular no chest pain, no dyspnea - Gastrointestinal no nausea, no vomiting Exam Initial Vital Signs Temp Pulse Resp BP Pulse Ox 100.1 F H 99 15 123/92 98 07/15/17 15:09 07/15/17 15:09 07/15/17 15:09 07/15/17 15:09 07/15/17 15:09 - General physical appearance Present: well developed, well nourished - Eyes Present: PERRL - Respiratory Present: normal respiratory effort - Abdomen Abdomen: Present: soft - Integumentary Present: no abnormal pigmentation - Musculoskeletal Present: other (Contraction secondary to multiple sclerosis) Urology Results - Labs 07/16/17 03:44 07/16/17 03:44 Abnormal lab results RBC 3.54 M/mcL (3.82-4.97) L 07/16/17 03:44 Hgb 10.2 g/dL (11.5-15.4) L 07/16/17 03:44 Hct 32.2 % (35.3-44.9) L 07/16/17 03:44 RDW 15.5 % (11.5-14.5) H 07/16/17 03:44 PT 17.1 Seconds (9.4-12.1) H 07/15/17 15:57 Chloride 115 mEq/L (98-107) H 07/16/17 03:44 Carbon Dioxide 19 mEq/L (23-29) L 07/16/17 03:44 AST 12 Units/L (13-39) L 07/15/17 15:57 Urine Clarity Turbid (Clear) A 07/15/17 16:09 Urine Protein 100 mg/dL (Neg-Trace) H 07/15/17 16:09 Urine Blood Large (Negative) H 07/15/17 16:09 Ur Leukocyte Esterase Large (Negative) H 07/15/17 16:09 Urine Microscopic RBC TNTC per hpf (0-3) H 07/15/17 16:09 Urine Microscopic WBC TNTC per hpf (0-3) H 07/15/17 16:09 Ur Squamous Epith Cells Many per lpf (None-Few) H 07/15/17 16:09 Urine Bacteria Many per hpf (None-Few) H 07/15/17 16:09 Ur Culture Indicated? NO. (NO) A 07/15/17 16:09 Diabetes panel 07/16/17 Range/Units 03:44 Sodium 143 (136-145) mEq/L Potassium 3.7 (3.5-5.1) mEq/L Chloride 115 H (98-107) mEq/L Carbon Dioxide 19 L (23-29) mEq/L BUN 13 (6-20) mg/dL Creatinine 0.78 (0.60-1.20) mg/dL Glucose 91 (70-105) mg/dL Calcium 8.7 (8.6-10.3) mg/dL Calcium panel 07/16/17 Range/Units 03:44 Calcium 8.7 (8.6-10.3) mg/dL Pituitary panel 07/16/17 Range/Units 03:44 Sodium 143 (136-145) mEq/L Potassium 3.7 (3.5-5.1) mEq/L Chloride 115 H (98-107) mEq/L Carbon Dioxide 19 L (23-29) mEq/L BUN 13 (6-20) mg/dL Creatinine 0.78 (0.60-1.20) mg/dL Glucose 91 (70-105) mg/dL Calcium 8.7 (8.6-10.3) mg/dL Adrenal panel 07/16/17 Range/Units 03:44 Sodium 143 (136-145) mEq/L Potassium 3.7 (3.5-5.1) mEq/L Chloride 115 H (98-107) mEq/L Carbon Dioxide 19 L (23-29) mEq/L BUN 13 (6-20) mg/dL Creatinine 0.78 (0.60-1.20) mg/dL Glucose 91 (70-105) mg/dL Calcium 8.7 (8.6-10.3) mg/dL All other labs normal. Consult Discharge Plan - Plan Referrals: Yassine Gunn MD [Primary Care Provider] -
[2017-07-16] MEDS ORDERED: *HR* FentaNYL (PF) 100 MCG/2 ML VIAL ONE (10:58)
[2017-07-16] MEDS ORDERED: *HR* Propofol 200 MG/20 ML VIAL IVP ONE (10:58)
--- NOTE | 2017-07-16 11:17 | Anesthesia Evaluation PreOp ---
Date of Encounter: 07/16/17 Time of Encounter: 11:44 - Past History Planned Operation: right USe with Holmium Cardiac History: HTN, Hyperlipidemia Pulmonary History: Former smoker [employer] History: Other (MS) Other Medical History: Renal (multiple kidney stones), GERD Anesthesia History: No Prior Anesthetic Complications, Past Anesthesia (USE with stent 1-18, fanta, hip replacement) : No Alcohol Use: none Drug use: none Medications and Allergies BuPROPion XL (24 HR) [Wellbutrin Xl] 150 mg PO QAM #0 10/29/14 [History] Cholecalciferol (Vitamin D3) [Vitamin D3] 50,000 unit PO GUTIERREZ #0 10/29/14 [History ] Multivitamin/Iron/Folic Acid [Centrum Complete Multivit Tab] 1 each PO QPM #0 [History] Omeprazole [PriLOSEC] 20 mg PO DAILY #0 10/29/14 [History] Loratadine [Allergy Relief] 10 mg PO DAILY PRN 01/11/16 [History] Ondansetron ODT [Zofran ODT] 4 mg SL DAILY PRN 01/11/16 [History] Ranitidine HCl [Zantac] 150 mg PO HS 01/11/16 [History] Polyethylene Glycol 3350 [Smoothlax] 17 g PO Q48H PRN 08/05/16 [History] Rivaroxaban [Xarelto] 20 mg PO QAM 08/05/16 [History] Atorvastatin [Lipitor] 40 mg PO HS 02/21/17 [History] Docusate [Colace] 100 mg PO BID PRN #60 capsule 02/21/17 [Rx] Tizanidine HCl 2 mg PO TID 07/15/17 [History] 3 Allergy/AdvReac Type Severity Reaction Status Date / Time dextromethorphan Allergy Difficulty Verified 02/21/17 12:39 [From NyQuil] Breathing doxylamine [From NyQuil] Allergy Difficulty Verified 02/21/17 12:39 Breathing pseudoephedrine [From NyQuil] Allergy Difficulty Verified 02/21/17 12:39 Breathing codeine AdvReac Nausea Verified 02/21/17 12:39 iodine AdvReac See Verified 02/21/17 12:39 Comments pregabalin [From Lyrica] AdvReac Hallucinati Verified 02/21/17 12:39 ng - Meds/Allergy Pre-op Review Medications Reviewed: Yes Allergies Reviewed: Yes Beta Blockers on Current Med List: No Anesthesia Results - Labs 07/16/17 03:44 07/16/17 03:44 Anesthesia Exam Selected Entries 07/16/17 08:12 Temperature 99.3 F Pulse Rate 78 Respiratory Rate 18 Blood Pressure 112/78 O2 Sat by Pulse Oximetry 96 Oxygen Delivery Method Room Air Weight: 52kg NPO (# of Hours): 8 - HEENT Pupil (Motor): EOMI Mallampati: II Teeth: Normal Oral Opening: Greater than 3 - [employer] LOC: Oriented [employer] Motor: Normal RUE, Normal LUE, Normal RLE, Normal LLE, Normal Face [employer] Sensory: Normal: RUE, LUE, RLE, LLE, Face - Cardiac Rhythm: Regular Murmur: None - Pulmonary Breath Sounds: bilateral Clear Respiratory Effort: Symmetrical Anesthesia Assess/Plan ASA Score: 3 Modified Devang Scale for Level of Consciousness: Cooperative, oriented, and tranquil Anesthetic Plan: General Monitoring Plan: Standard Monitors Recovery Plan: PACU (agrees to MAC)
[2017-07-16] MEDS ORDERED: Dexamethasone 4 MG/ML VIAL ONE (11:57)
[2017-07-16] MEDS ORDERED: Ondansetron 4 MG/2 ML VIAL ONE (11:57)
[2017-07-16] MEDS ORDERED: MORPHINE SUL Oral CONC 10 MG/0.5 ML ORAL.SYG SL PRN (12:10)
--- NOTE | 2017-07-16 12:14 | Operative Note ---
Date of procedure: 07/16/17 Pre-op diagnosis: right ureteral stone Post-op diagnosis: other (passed stone found in bladder) Procedure: Diagnostic right ureteroscopy Anesthesia: GETA Surgeon: Manuel Bills Was there an assistant passenger locomotive engineer present: No Estimated blood loss (cc): 0 Specimen: none Condition: stable Disposition: PACU Procedure in Detail: Patient was prepped and draped in normal sterile fashion. Timeout procedure performed. I then inserted the semirigid ureteroscope into the patient's bladder. Upon entering the bladder I noted a stone which was consistent with the stone on CT scan within the bladder lumen. At this point I then performed right ureteroscopy. 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 I was easily able to visualize each ureter without any obvious further stones visualized. The bladder was drained and procedure was ended. I then placed a 16-Wolof catheter back into the patient' s bladder. Patient can follow-up with either me or Dr. El in 2-3 weeks to discuss further management of bilateral renal stones.
[2017-07-16] MEDS ORDERED: Ondansetron ODT 4 MG TAB.RAPDIS SL PRN (13:02)
[2017-07-16] MEDS ORDERED: Naloxone 0.4 MG/ML INJ IVP PRN (13:02)
[2017-07-16] MEDS ORDERED: Loratadine 10 MG TABLET PO PRN (13:02)
--- NOTE | 2017-07-16 15:34 | Internal Med Progress Note ---
Date of Encounter: 07/16/17 Time of Encounter: 15:34 - Assessment and plan (1) UTI (urinary tract infection) Current Visit: No Status: Acute Assessment and plan: Culture pending. On IV Ceftriaxone. Stone removed today. Qualifiers: Urinary tract infection type: acute cystitis Hematuria presence: without hematuria Qualified Code(s): N30.00 - Acute cystitis without hematuria (2) Multiple sclerosis Current Visit: No Status: Chronic Assessment and plan: Chronic. Continue home medications. (3) Hypertension Current Visit: No Status: Chronic Assessment and plan: Controlled. Continue home meds. Qualifiers: Hypertension type: essential hypertension Qualified Code(s): I10 - Essential (primary) hypertension (4) DVT prophylaxis Current Visit: No Status: Acute Assessment and plan: SCDs Restart Xarelto. (5) Hyperlipidemia Current Visit: No Status: Chronic Assessment and plan: Continue home statin Qualifiers: Hyperlipidemia type: mixed hyperlipidemia Qualified Code(s): E78.2 - Mixed hyperlipidemia (6) Hydronephrosis Current Visit: Yes Status: Acute Assessment and plan: Stone removed today. Qualifiers: Hydronephrosis type: with renal calculous obstruction Qualified Code(s): N13.2 - Hydronephrosis with renal and ureteral calculous obstruction (7) Ureterolithiasis Current Visit: Yes Status: Acute Assessment and plan: Stone removed today. (8) Metabolic encephalopathy Current Visit: Yes Status: Resolved Assessment and plan: Mentation appears to have improved with treatment of UTI. She is s/p stone removal. - Time Spent With Patient Total time spent is greater than 50% in coordination of care (as documented) at patient's floor/unit and/or counseling patient: - Subjective Interval history: Ms Obrien is currently admitted for acute UTI related to stone. She remains moderate to high risk at this time due to potential for worsening clinical status. Ms Obrien had surgery today. She is feeling OK at this time. No fever. at bedside and concerned about infection. No GI issues at this time. - Constitutional Vitals: Temp Pulse Resp BP Pulse Ox 99 F 78 17 140/78 98 07/16/17 13:25 07/16/17 13:25 07/16/17 13:25 07/16/17 13:25 07/16/17 13:25 General appearance: Present: A&O X 3, no acute distress - Head Head exam: Present: normocephalic - Eye Eye exam: Present: conjuntiva pink - ENT ENT exam: Present: mucous membranes dry - Respiratory Respiratory exam: Present: CTAB. Absent: rales, rhonchi, wheezes - Cardiovascular Cardiovascular exam: Present: RRR. Absent: tachycardia - GI/Abdominal GI/Abdominal exam: Present: soft. Absent: tenderness - Extremities Exam Extremities exam: Present: warm. Absent: tenderness - Neurological Exam Neurological exam: Present: alert, oriented X3 - Skin Skin exam: Present: dry, warm Internal Medicine: Result - Labs CBC & Chem 7: 07/16/17 03:44 07/16/17 03:44 Labs: Short CBC 07/16/17 Range/Units 03:44 WBC 10.3 (4.3-11.1) K/mcL Hgb 10.2 L (11.5-15.4) g/dL Hct 32.2 L (35.3-44.9) % Plt Count 258 (140-400) K/mcL Neutrophils # 8.7 (1.6-8.9) K/mcL BMP 07/16/17 03:44 Sodium 143 Potassium 3.7 Chloride 115 H Carbon Dioxide 19 L BUN 13 Creatinine 0.78 Glucose 91 Calcium 8.7 Cardiac Enzymes 07/15/17 07/16/17 Range/Units 22:09 03:44 Troponin I < 0.03 < 0.03 (< 0.04) ng/mL - ABG Interpretation ABG results: PT/INR, D-dimer PT 17.1 Seconds (9.4-12.1) H 07/15/17 15:57 Consult Discharge Plan - Plan Referrals: Yassine Gunn MD [Primary Care Provider] -
[2017-07-16] MEDS: tiZANidine 4 MG TABLET PO SCH ×2 (16:13→21:03)
[2017-07-16] MEDS: Acetaminophen 325 MG TABLET PO PRN (16:13)
[2017-07-16] MEDS: Multivit/Ca/Min/Fe/FA 1 TAB TABLET PO SCH (17:51)
[2017-07-16] MEDS ORDERED: Multivit/Ca/Min/Fe/FA 1 TAB TABLET PO SCH (18:00)
[2017-07-16] MEDS ORDERED: Famotidine 20 MG TABLET PO SCH (21:00)
[2017-07-16] MEDS: Famotidine 20 MG TABLET PO SCH (21:03)
[2017-07-17] MEDS: Ringers Solution, Lactated 1,000 ML IVC SCH ×2 (07:19→17:20)
[2017-07-17] MEDS: tiZANidine 4 MG TABLET PO SCH ×3 (07:23→19:58)
[2017-07-17] MEDS: BuPROPion XL (24 HR) 150 MG TABLET PO SCH (07:23)
--- NOTE | 2017-07-17 07:26 | Urology Progress Note ---
Date of Encounter: 07/17/17 Time of Encounter: 07:23 - Assessment and Plan (1) Sepsis Current Visit: Yes Status: Acute Assessment and plan: continue broad spectrum abx. 2 week course. Qualifiers: Sepsis type: sepsis due to unspecified organism Qualified Code(s): A41.9 - Sepsis, unspecified organism (2) Ureterolithiasis Current Visit: Yes Status: Acute Assessment and plan: sp neg ureteroscopy. patient will f/u on 08/04/17 at 115. ok to dc per urology standpoint. ok to dc catheter per primary team. Progress Note Narrative: Patient seen. feeling much better. cultures pending. Objective Initial Vital Signs Temp Pulse Resp BP Pulse Ox 100.1 F H 99 15 123/92 98 07/15/17 15:09 07/15/17 15:09 07/15/17 15:09 07/15/17 15:09 07/15/17 15:09 - General physical appearance Present: well developed, well nourished - Respiratory Present: normal expansion, normal respiratory effort - Abdomen Present: soft. Absent: tender - Labs 07/16/17 03:44 07/16/17 03:44 - VTE Documentation of Mechanical Device: Intermittent pneumatic compression device Consult Discharge Plan - Plan Referrals: Manuel Bills MD [Partnered Physician] - Yassine Gunn MD [Primary Care Provider] -
[2017-07-17] MEDS: Acetaminophen 325 MG TABLET PO PRN (08:05)
[2017-07-17] MEDS ORDERED: cefTRIAXone 1,000 MG in Water for inj. (sterile) 20 ML 10 ML IVP SCH (09:00)
--- NOTE | 2017-07-17 10:29 | Internal Med Progress Note ---
Date of Encounter: 07/17/17 Time of Encounter: 10:00 - Assessment and plan (1) UTI (urinary tract infection) Current Visit: No Status: Acute Assessment and plan: Previous cultures reviewed. Abx changed to Zosyn today. Final cx pending. Anticipate discharge tomorrow. Would anticipate d/c on Bactrim. Qualifiers: Urinary tract infection type: acute cystitis Hematuria presence: without hematuria Qualified Code(s): N30.00 - Acute cystitis without hematuria (2) Multiple sclerosis Current Visit: No Status: Chronic Assessment and plan: Chronic. Continue home medications. (3) Hypertension Current Visit: No Status: Chronic Assessment and plan: Controlled. Continue home meds. Qualifiers: Hypertension type: essential hypertension Qualified Code(s): I10 - Essential (primary) hypertension (4) DVT prophylaxis Current Visit: No Status: Acute Assessment and plan: SCDs Restart Xarelto. (5) Hyperlipidemia Current Visit: No Status: Chronic Assessment and plan: Continue home statin Qualifiers: Hyperlipidemia type: mixed hyperlipidemia Qualified Code(s): E78.2 - Mixed hyperlipidemia (6) Hydronephrosis Current Visit: Yes Status: Acute Assessment and plan: Stone removed. Outpatient follow up. Qualifiers: Hydronephrosis type: with renal calculous obstruction Qualified Code(s): N13.2 - Hydronephrosis with renal and ureteral calculous obstruction (7) Ureterolithiasis Current Visit: Yes Status: Acute Assessment and plan: Stone removed. - Time Spent With Patient Total time spent is greater than 50% in coordination of care (as documented) at patient's floor/unit and/or counseling patient: - Subjective Interval history: Ms Obrien is currently admitted for acute UTI related to stone. She remains moderate to high risk at this time due to potential for worsening clinical status. Ms Obrien was somewhat hypothermic this AM. She is feeling OK at this time. No GI issues. Tolerating diet. Abx changed today to cover prior cultures. - Constitutional Vitals: Temp Pulse Resp BP Pulse Ox 97.9 F 66 14 99/63 95 07/17/17 10:14 07/17/17 10:14 07/17/17 10:14 07/17/17 10:14 07/17/17 10:14 General appearance: Present: A&O X 3, pleasant - Head Head exam: Present: normocephalic - Eye Eye exam: Present: conjuntiva pink - ENT ENT exam: Present: mucous membranes moist - Respiratory Respiratory exam: Absent: rales, rhonchi, wheezes - Cardiovascular Cardiovascular exam: Present: RRR. Absent: tachycardia - GI/Abdominal GI/Abdominal exam: Present: soft, tenderness Additional comments: Mild discomfort suprapubic area. - Extremities Exam Extremities exam: Present: warm. Absent: tenderness - Neurological Exam Neurological exam: Present: alert, oriented X3 - Skin Skin exam: Present: dry, warm Internal Medicine: Result - Labs CBC & Chem 7: 07/16/17 03:44 07/16/17 03:44 - ABG Interpretation ABG results: PT/INR, D-dimer PT 17.1 Seconds (9.4-12.1) H 07/15/17 15:57 - VTE Documentation of Mechanical Device: Intermittent pneumatic compression device Consult Discharge Plan - Plan Referrals: Manuel Bills MD [Partnered Physician] - Yassine Gunn MD [Primary Care Provider] -
[2017-07-17] MEDS: *HR* HYDROcodone/Acet 5/325 mg TABLET PO PRN (13:07)
[2017-07-17] MEDS: Piperacillin/Tazobactam 3.375 GM in 0.9 % Sodium Chloride Mini Bag 100 ML IVPB SCH ×2 (16:04→23:25)
[2017-07-17] MEDS ORDERED: *HR* Rivaroxaban 10 MG TABLET PO SCH (17:00)
[2017-07-17] MEDS: Multivit/Ca/Min/Fe/FA 1 TAB TABLET PO SCH (17:19)
[2017-07-17] MEDS: Famotidine 20 MG TABLET PO SCH (19:59)
[2017-07-18] MEDS: Ringers Solution, Lactated 1,000 ML IVC SCH (03:26)
[2017-07-18] MEDS: *HR* HYDROcodone/Acet 5/325 mg TABLET PO PRN (04:17)
[2017-07-18] MEDS: tiZANidine 4 MG TABLET PO SCH (08:33)
[2017-07-18] MEDS: Piperacillin/Tazobactam 3.375 GM in 0.9 % Sodium Chloride Mini Bag 100 ML IVPB SCH (08:34)
[2017-07-18] MEDS: BuPROPion XL (24 HR) 150 MG TABLET PO SCH (08:34)
--- NOTE | 2017-07-18 10:19 | Discharge Summary ---
- NOTES TO OUTPATIENT PROVIDER Notes to Outpatient Provider: Pt admitted with UTI and kidney stone. Stone removed. Completing course of PO abx and to follow up with urology for other stones. Date of Encounter: 07/18/17 Time of Encounter: 10:16 - Discharge Diagnosis (1) UTI (urinary tract infection) Priority: Primary Status: Acute Qualifiers: Urinary tract infection type: acute cystitis Hematuria presence: without hematuria Qualified Code(s): N30.00 - Acute cystitis without hematuria (2) Multiple sclerosis Priority: Secondary Status: Chronic (3) Hypertension Priority: Secondary Status: Chronic Qualifiers: Hypertension type: essential hypertension Qualified Code(s): I10 - Essential (primary) hypertension (4) Hyperlipidemia Priority: Secondary Status: Chronic Qualifiers: Hyperlipidemia type: mixed hyperlipidemia Qualified Code(s): E78.2 - Mixed hyperlipidemia (5) Hydronephrosis Priority: Secondary Status: Resolved Qualifiers: Hydronephrosis type: with renal calculous obstruction Qualified Code(s): N13.2 - Hydronephrosis with renal and ureteral calculous obstruction (6) Ureterolithiasis Priority: Secondary Status: Resolved Hospital course: Ms. Obrien is a 56 year old female with hx of MS presented to ED due to fever and hematuria. She was found to have obstructive stone and admitted for further treatment. Ms Obrien was admitted to med surg. She was started on IV abx and seen by urology. The following day she was taken to OR for cystoscopy. Stone was in bladder and removed. She was continued on IV abx. Today cx has returned with Klebsiella. She is afebrile and is ready for discharge home. She will complete course of PO Bactrim and follow up with urology as she has other renal stones. Discharge discussed with: patient, family, nurse - Time Spent with Patient Total time spent providing and/or coordinating discharge services: 41min - Discharge Medications Prescriptions: HYDROcodone/Acet 5/325 mg [[place] 5-325 mg] 1 tab PO Q6HR PRN 3 Days #12 tablet PRN Reason: Moderate to Severe Pain Sulfamethoxazole/Trimeth DS [Bactrim DS] 1 each PO BID #15 tablet Home Medications: BuPROPion XL (24 HR) [Wellbutrin Xl] 150 mg PO QAM #0 10/29/14 [History] Cholecalciferol (Vitamin D3) [Vitamin D3] 50,000 unit PO GUTIERREZ #0 10/29/14 [History ] Multivitamin/Iron/Folic Acid [Centrum Complete Multivit Tab] 1 each PO QPM #0 [History] Omeprazole [PriLOSEC] 20 mg PO DAILY #0 10/29/14 [History] Loratadine [Allergy Relief] 10 mg PO DAILY PRN 01/11/16 [History] Ondansetron ODT [Zofran ODT] 4 mg SL DAILY PRN 01/11/16 [History] Ranitidine HCl [Zantac] 150 mg PO HS 01/11/16 [History] Polyethylene Glycol 3350 [Smoothlax] 17 g PO Q48H PRN 08/05/16 [History] Rivaroxaban [Xarelto] 20 mg PO QAM 08/05/16 [History] Atorvastatin [Lipitor] 40 mg PO HS 02/21/17 [History] Docusate [Colace] 100 mg PO BID PRN #60 capsule 02/21/17 [Rx] Tizanidine HCl 2 mg PO TID 07/15/17 [History] HYDROcodone/Acet 5/325 mg [[place] 5-325 mg] 1 tab PO Q6HR PRN 3 Days #12 tablet 07/18/17 [Rx] Sulfamethoxazole/Trimeth DS [Bactrim DS] 1 each PO BID #15 tablet 07/18/17 [Rx] Allergies/Adverse Reactions: 3 Allergy/AdvReac Type Severity Reaction Status Date / Time dextromethorphan Allergy Difficulty Verified 02/21/17 12:39 [From NyQuil] Breathing doxylamine [From NyQuil] Allergy Difficulty Verified 02/21/17 12:39 Breathing pseudoephedrine [From NyQuil] Allergy Difficulty Verified 02/21/17 12:39 Breathing codeine AdvReac Nausea Verified 02/21/17 12:39 iodine AdvReac See Verified 02/21/17 12:39 Comments pregabalin [From Lyrica] AdvReac Hallucinati Verified 02/21/17 12:39 ng Date of admission: 07/15/17 21:24 Primary care physician: Yassine Gunn MD Consults: Urology Discharging clinician: Ronny Vizcaino Anticipated date of discharge: 07/18/17 - Constitutional Vitals: Temp Pulse Resp BP Pulse Ox 97.9 F 68 18 137/76 95 07/18/17 06:58 07/18/17 06:58 07/18/17 06:58 07/18/17 06:58 07/18/17 06:58 General appearance: Present: A&O X 3, pleasant - Head Head exam: Present: normocephalic - Eye Eye exam: Present: conjuntiva pink - ENT ENT exam: Present: mucous membranes moist - Respiratory Respiratory exam: Present: CTAB. Absent: rales, rhonchi, wheezes - Cardiovascular Cardiovascular exam: Present: RRR. Absent: tachycardia - GI/Abdominal GI/Abdominal exam: Present: soft, tenderness Additional comments: Minimal suprapubic tenderness. - Extremities Exam Extremities exam: Present: warm. Absent: tenderness - Neurological Exam Neurological exam: Present: alert, oriented X3 - Skin Skin exam: Present: dry, warm - Patient Status Disposition: Home Health Service Condition: Fair Functional capacity at discharge: independent ambulation Overall status at discharge: patient is progressing back to baseline - Discharge Instructions Instructions: Urinary Tract Infection in Women (DC), Sepsis (DC) Follow Up With: Yassine Gunn MD [Primary Care Provider] - Manuel Bills MD [Partnered Physician] - 08/04/17 11:15 am - Diet and Activity Activity: increase activity as tolerated Diet: advance to your usual diet - VTE Documentation of Mechanical Device: Intermittent pneumatic compression device
--- NOTE | 2017-07-18 10:22 | Physician Discharge Referral ---
Home Health/Hosp Referral Info Transfer to: Home Health Provider in Charge Post Discharge: PCP - Diagnosis (1) UTI (urinary tract infection) Priority: Primary Status: Acute (2) Multiple sclerosis Priority: Secondary Status: Chronic (3) Hypertension Priority: Secondary Status: Chronic (4) Hyperlipidemia Priority: Secondary Status: Chronic (5) Hydronephrosis Priority: Secondary Status: Resolved (6) Ureterolithiasis Priority: Secondary Status: Resolved - Respiratory Orders None Smoking Cessation: Smoking cessation has been advised. For more information, call the [place] Tobacco Quit Line at 9-474-CBUF-NOW. - Diet/Nutrition Diet/Nutrition Orders: Regular - Activity Activity Orders: Up ad glenn - Services Needed Following services are medically necessary services: Nursing, Home Health Aide, Physical Therapy, Occupational Therapy - Transfer Medications Prescriptions: HYDROcodone/Acet 5/325 mg [Willis 5-325 mg] 1 tab PO Q6HR PRN 3 Days #12 tablet PRN Reason: Moderate to Severe Pain Sulfamethoxazole/Trimeth DS [Bactrim DS] 1 each PO BID #15 tablet Home Medications: BuPROPion XL (24 HR) [Wellbutrin Xl] 150 mg PO QAM #0 10/29/14 [History] Cholecalciferol (Vitamin D3) [Vitamin D3] 50,000 unit PO GUTIERREZ #0 10/29/14 [History ] Multivitamin/Iron/Folic Acid [Centrum Complete Multivit Tab] 1 each PO QPM #0 [History] Omeprazole [PriLOSEC] 20 mg PO DAILY #0 10/29/14 [History] Loratadine [Allergy Relief] 10 mg PO DAILY PRN 01/11/16 [History] Ondansetron ODT [Zofran ODT] 4 mg SL DAILY PRN 01/11/16 [History] Ranitidine HCl [Zantac] 150 mg PO HS 01/11/16 [History] Polyethylene Glycol 3350 [Smoothlax] 17 g PO Q48H PRN 08/05/16 [History] Rivaroxaban [Xarelto] 20 mg PO QAM 08/05/16 [History] Atorvastatin [Lipitor] 40 mg PO HS 02/21/17 [History] Docusate [Colace] 100 mg PO BID PRN #60 capsule 02/21/17 [Rx] Tizanidine HCl 2 mg PO TID 07/15/17 [History] HYDROcodone/Acet 5/325 mg [Willis 5-325 mg] 1 tab PO Q6HR PRN 3 Days #12 tablet 07/18/17 [Rx] Sulfamethoxazole/Trimeth DS [Bactrim DS] 1 each PO BID #15 tablet 07/18/17 [Rx] Allergies/Adverse Reactions: 3 Allergy/AdvReac Type Severity Reaction Status Date / Time dextromethorphan Allergy Difficulty Verified 02/21/17 12:39 [From NyQuil] Breathing doxylamine [From NyQuil] Allergy Difficulty Verified 02/21/17 12:39 Breathing pseudoephedrine [From NyQuil] Allergy Difficulty Verified 02/21/17 12:39 Breathing codeine AdvReac Nausea Verified 02/21/17 12:39 iodine AdvReac See Verified 02/21/17 12:39 Comments pregabalin [From Lyrica] AdvReac Hallucinati Verified 02/21/17 12:39 ng Certification: Further, I certify that my clinical findings support that this patient is homebound (i.e. absences from home require considerable and taxing effort and are for medical reasons or worship services or infrequently or short duration when for other reasons) because: Homebound Reason: Patient requires assistance of a person or device to safely leave home, Leaving home requires considerable and taxing effort due to condition Attestation: My signature below is to certify that this patient is under my care and that I, or nurse practitioner, or a physician's miner assistant working with me, has a face-to -face encounter with this patient.
[2017-07-18 10:38] VITALS: BP 124/71
[2017-07-20] MEDS ORDERED: Cholecalciferol (D-3) 1,000 UNIT TABLET PO SCH ×2 (09:00)
== END 2017-07-18 15:28 | disposition home health service (06) | DRG 871 ==
LOC: EMEROO 15:06 → 2SOUTHHOLD 15:06 → SUATTDRO 21:24 → 3ANU 07-16 19:46
PROVIDERS: ADMIT Internal Medicine; ATTEND Internal Medicine

== ENCOUNTER 2020-10-18 16:35 | Observation (INO) ==
[2020-10-18 21:23] LABS: Hematocrit 34.7 % (35.3-44.9); Hemoglobin 11.4 g/dL (11.5-15.4); Mean Corpuscular HGB Conc 32.9 g/dL (31.6-35.5); Mean Corpuscular Hemoglobin 28.9 pg (28.0-33.3); Mean Corpuscular Volume 88.1 fL (83.0-100.0); Mean Platelet Volume 9.7 fL (9.4-12.4); Platelet Count 367 K/mcL (140-400); Red Blood Count 3.94 M/mcL (3.82-4.97); White Blood Count 10.2 K/mcL (4.3-11.1)
[2020-10-18 21:41] LABS: Calcium 9.7 mg/dL (8.6-10.3); Potassium 3.7 mEq/L (3.5-5.1)
[2020-10-18 23:45] LABS: Bilirubin,Urine Negative (Negative); Blood,Urine Moderate (Negative); Clarity,Urine Turbid (Clear); Color,Urine Yellow (Yellow); Glucose,Urine (UA) Normal (Normal); Ketones,Urine 10 mg/dL (Negative); Leukocyte Esterase,Urine Large (Negative); Nitrite,Urine Negative (Negative); Protein,Urine 200 mg/dL (Neg-Trace); Specific Gravity,Urine 1.014 (1.010-1.025); Urobilinogen,Urine Normal (Normal)
[2020-10-18 23:47] LABS: RBC,Urine 15-30 per hpf (0-3); WBC,Urine 50-100 per hpf (0-3)
[2020-10-18 23:48] LABS: Squamous Epithelial Cell,Urine Few per hpf (None-Few)
[2020-10-18 23:49] LABS: Bacteria,Urine Few per hpf (None-Few); Hyaline Casts,Urine None Seen per lpf (None Seen)
[2020-10-18 23:50] LABS: Amorphous Sediment,Urine Moderate per hpf (None-Few)
[2020-10-19] MEDS ORDERED: cefTRIAXone 1,000 MG in Water for inj. (sterile) 10 ML IVP STA (00:02)
[2020-10-19] MEDS ORDERED: Ondansetron 4 MG/2 ML VIAL IVP PRN (01:59)
[2020-10-19] MEDS ORDERED: Naloxone 0.4 MG/ML INJ IVP PRN (01:59)
[2020-10-19] MEDS ORDERED: Melatonin 3 MG TABLET PO PRN (01:59)
[2020-10-19] MEDS ORDERED: Ketorolac 15 MG/ML VIAL IVP PRN (01:59)
[2020-10-19] MEDS: 0.9 % Sodium Chloride 1,000 ML IVC SCH ×2 (02:35→11:40)
[2020-10-19 03:19] LABS: Basophils # 0.1 K/mcL (0.0-0.2); Basophils % 0.7 %; Eosinophils # 0.3 K/mcL (0.0-0.6); Eosinophils % 2.4 %; Hematocrit 36.6 % (35.3-44.9); Immature Granulocytes % 0.3 % (0-4); Lymphocytes # 1.6 K/mcL (0.6-4.6); Lymphocytes % 15.1 %; Mean Corpuscular HGB Conc 32.8 g/dL (31.6-35.5); Mean Corpuscular Hemoglobin 28.8 pg (28.0-33.3); Mean Corpuscular Volume 87.8 fL (83.0-100.0); Mean Platelet Volume 10.6 fL (9.4-12.4); Monocytes # 0.9 K/mcL (0.0-1.3); Monocytes % 8.3 %; Neutrophils # 7.5 K/mcL (1.6-8.9); Platelet Count 312 K/mcL (140-400); Red Blood Count 4.17 M/mcL (3.82-4.97); Segmented Neutrophils % 73.2 %; White Blood Count 10.3 K/mcL (4.3-11.1)
[2020-10-19 03:44] LABS: Albumin 3.2 g/dL (3.5-5.7); Albumin/Globulin Ratio 0.9 (1.1-2.2); Bilirubin,Total 0.5 mg/dL (0.3-1.0); Calcium 9.7 mg/dL (8.6-10.3); Globulin 3.7 g/dL (2.4-3.5); Magnesium 1.7 mg/dL (1.6-2.6); Phosphorous 3.4 mg/dL (2.7-4.5); Total Protein 6.9 g/dL (6.4-8.9)
[2020-10-19] MEDS: *HR* Heparin 5,000 UNIT/ML VIAL SQ SCH (16:58)
[2020-10-20] MEDS: *HR* Heparin 5,000 UNIT/ML VIAL SQ SCH (05:19)
[2020-10-20] MEDS ORDERED: cefTRIAXone 1,000 MG in Water for inj. (sterile) 10 ML IVP SCH (09:00)
[2020-10-20 11:00] VITALS: BP 135/88; PULSE 81; TEMP 97.6; O2SAT 96
== END 2020-10-20 15:08 | disposition home health service (06) ==
LOC: 3BNU 16:35 → EMEROOARM 16:35 → SUATTDRO 10-19 00:27 → 3BNU 10-19 00:46
PROVIDERS: ADMIT Internal Medicine; ATTEND Internal Medicine

== ENCOUNTER 2020-11-21 13:42 | Inpatient (IN) ==
[2020-11-21] MEDS ORDERED: Vancomycin 500 MG in 0.9 % Sodium Chloride Mini Bag 100 ML IVPB ONE (14:27)
[2020-11-21] MEDS ORDERED: Piperacillin/Tazobactam 3.375 GM in Water for inj. (sterile) 20 ML IVP ONE (14:27)
[2020-11-21 15:11] LABS: Amorphous Sediment,Urine Few per hpf (None-Few); Bacteria,Urine Few per hpf (None-Few); Bilirubin,Urine Negative (Negative); Blood,Urine Large (Negative); Clarity,Urine Ex.Turbid (Clear); Color,Urine Orange (Yellow); Glucose,Urine (UA) Normal (Normal); Hyaline Casts,Urine Many per lpf (None Seen); Ketones,Urine Trace mg/dL (Negative); Leukocyte Esterase,Urine Large (Negative); Mucus,Urine Few per lpf (None-Few); Nitrite,Urine Positive (Negative); Protein,Urine 200 mg/dL (Neg-Trace); RBC,Urine 50-100 per hpf (0-3); Renal Epithelial Cells,Urine Moderate per hpf (None-Few); Specific Gravity,Urine 1.016 (1.010-1.025); Squamous Epithelial Cell,Urine Moderate per hpf (None-Few); Urobilinogen,Urine Normal (Normal); WBC,Urine TNTC per hpf (0-3)
[2020-11-21 15:12] LABS: Nucleated Red Blood Cells 0.2 /100 WBC (0)
[2020-11-21 15:14] LABS: Basophils % 0.3 %
[2020-11-21 15:20] LABS: INR 1.1; Prothrombin Time 12.4 Seconds (9.4-12.1)
[2020-11-21 15:22] LABS: Activated Partial Thrombo Time 35.7 Seconds (26.0-36.0)
[2020-11-21 15:24] LABS: Eosinophils # 0.1 K/mcL (0.0-0.6); Eosinophils % 0.8 %; Hematocrit 34.6 % (35.3-44.9); Hemoglobin 10.9 g/dL (11.5-15.4); Immature Granulocytes % 0.5 % (0-4); Lymphocytes # 1.5 K/mcL (0.6-4.6); Lymphocytes % 12.4 %; Mean Corpuscular HGB Conc 31.5 g/dL (31.6-35.5); Mean Corpuscular Hemoglobin 27.2 pg (28.0-33.3); Mean Corpuscular Volume 86.3 fL (83.0-100.0); Mean Platelet Volume 10.8 fL (9.4-12.4); Monocytes # 0.8 K/mcL (0.0-1.3); Monocytes % 6.8 %; Neutrophils # 9.4 K/mcL (1.6-8.9); Platelet Count 123 K/mcL (140-400); Red Blood Count 4.01 M/mcL (3.82-4.97); Red Cell Distribution Width 15.2 % (11.5-14.5); Segmented Neutrophils % 79.2 %; White Blood Count 11.8 K/mcL (4.3-11.1)
[2020-11-21 15:31] LABS: Alanine Aminotransferase 16 Units/L (7-52); Albumin 3.3 g/dL (3.5-5.7); Alkaline Phosphatase 98 Units/L (34-104); Aspartate Amino Transferase 12 Units/L (13-39); BUN/Creatinine Ratio 16 (6-26); Bilirubin,Direct 0.1 mg/dL (0.0-0.2); Bilirubin,Indirect 0.4 mg/dL (0.0-1.0); Bilirubin,Total 0.5 mg/dL (0.3-1.0); Blood Urea Nitrogen 14 mg/dL (6-20); Calcium 10.1 mg/dL (8.6-10.3); Carbon Dioxide 27 mEq/L (23-29); Chloride 97 mEq/L (98-107); Globulin 3.3 g/dL (2.4-3.5); Glucose 93 mg/dL (70-105); Lipase 24 Units/L (11-82); Magnesium 1.6 mg/dL (1.6-2.6); Osmolality,Calculated 278 (280-300); Phosphorous 2.8 mg/dL (2.7-4.5); Sodium 134 mEq/L (136-145); Total Protein 6.6 g/dL (6.4-8.9); Troponin I < 0.03 ng/mL (< 0.04); eGFR For African Americans > 60 (> 60); eGFR For Non-African Americans > 60 (> 60)
[2020-11-21 15:33] LABS: C-Reactive Protein 158 mg/L (Less than 10)
[2020-11-21] MEDS: 0.9 % Sodium Chloride 1,000 ML IVC SCH ×3 (15:59→21:38)
[2020-11-21] MEDS ORDERED: Naloxone 0.4 MG/ML INJ IVP PRN (17:40)
[2020-11-21] MEDS ORDERED: Ondansetron 4 MG/2 ML VIAL IVP PRN (17:40)
[2020-11-21] MEDS ORDERED: Nystatin POWDER 30 GM BOTTLE TP PRN (17:42)
[2020-11-21] MEDS ORDERED: hydrOXYzine pamoate 25 MG CAPSULE PO PRN (17:42)
[2020-11-21] MEDS ORDERED: Silver Sulfadiazine 50 GM TUBE TP PRN (17:42)
[2020-11-21] MEDS ORDERED: tiZANidine 4 MG TABLET PO PRN (17:42)
[2020-11-21] MEDS: *HR* Heparin 5,000 UNIT/ML VIAL SQ SCH (21:38)
[2020-11-21] MEDS: Piperacillin/Tazobactam 3.375 GM in 0.9 % Sodium Chloride Mini Bag 100 ML IVPB SCH (21:39)
[2020-11-22] MEDS ORDERED: Albumin 25% 25gram/100mL 25 GM/100 ML IV.SOLN IVPB ONE (02:07)
[2020-11-22] MEDS ORDERED: *HR* Dextrose 50 % in Water (Syg) 50 ML SYRINGE IVP PRN ×2 (05:42→09:51)
[2020-11-22] MEDS ORDERED: D5% in Water 1,000 ML IVC PRN ×2 (05:42→09:51)
[2020-11-22] MEDS ORDERED: Dextrose Gel 15 GM/37.5 ML TUBE PO PRN ×4 (05:42→09:51)
[2020-11-22 05:54] LABS: BUN/Creatinine Ratio 18 (6-26); Blood Urea Nitrogen 13 mg/dL (6-20); Calcium 9.1 mg/dL (8.6-10.3); Carbon Dioxide 21 mEq/L (23-29); Chloride 108 mEq/L (98-107); Glucose 64 mg/dL (70-105); Osmolality,Calculated 286 (280-300); Potassium 3.8 mEq/L (3.5-5.1); Sodium 139 mEq/L (136-145); eGFR For African Americans > 60 (> 60); eGFR For Non-African Americans > 60 (> 60)
[2020-11-22 06:00] LABS: Eosinophils % 1.9 %; Immature Granulocytes % 0.8 % (0-4); Lymphocytes % 18.7 %; Mean Corpuscular Volume 85.4 fL (83.0-100.0)
[2020-11-22 06:02] LABS: Basophils # 0.1 K/mcL (0.0-0.2); Basophils % 0.5 %; Eosinophils # 0.2 K/mcL (0.0-0.6); Hematocrit 26.3 % (35.3-44.9); Hemoglobin 8.7 g/dL (11.5-15.4); Immature Platelets 6.3 % (1.1-6.1); Lymphocytes # 1.9 K/mcL (0.6-4.6); Mean Corpuscular HGB Conc 33.1 g/dL (31.6-35.5); Mean Corpuscular Hemoglobin 28.2 pg (28.0-33.3); Mean Platelet Volume 11.3 fL (9.4-12.4); Monocytes # 0.7 K/mcL (0.0-1.3); Monocytes % 6.3 %; Neutrophils # 7.4 K/mcL (1.6-8.9); Red Blood Count 3.08 M/mcL (3.82-4.97); Red Cell Distribution Width 15.1 % (11.5-14.5); Segmented Neutrophils % 71.8 %; White Blood Count 10.3 K/mcL (4.3-11.1)
[2020-11-22] MEDS: Piperacillin/Tazobactam 3.375 GM in 0.9 % Sodium Chloride Mini Bag 100 ML IVPB SCH ×3 (06:03→21:13)
[2020-11-22] MEDS: *HR* Heparin 5,000 UNIT/ML VIAL SQ SCH ×2 (06:03→17:23)
[2020-11-22 06:05] LABS: Platelet Count 78 K/mcL (140-400)
[2020-11-22] MEDS ORDERED: *HR* Propofol 200 MG/20 ML VIAL IVP ONE (06:58)
[2020-11-22] MEDS ORDERED: *HR* FentaNYL (PF) 100 MCG/2 ML VIAL ONE ×2 (06:58→12:11)
[2020-11-22] MEDS ORDERED: Isovue-300 50ML VIAL ONE (07:16)
[2020-11-22] MEDS ORDERED: Lidocaine -MPF 2% 2 ML VIAL ONE (07:18)
[2020-11-22] MEDS ORDERED: *HR* OxyCODONE Immed Rel 5 MG TABLET PO PRN (07:59)
[2020-11-22] MEDS ORDERED: *HR* HYDROmorphone PF 0.5 MG/0.5 ML SYRINGE IVP PRN (07:59)
[2020-11-22] MEDS ORDERED: Ondansetron 4 MG/2 ML VIAL IVP PRN ×2 (07:59→09:51)
[2020-11-22] MEDS ORDERED: Ondansetron 4 MG/2 ML VIAL ONE (08:03)
[2020-11-22] MEDS ORDERED: Nystatin POWDER 30 GM BOTTLE TP PRN (09:51)
[2020-11-22] MEDS ORDERED: 0.9 % Sodium Chloride 1,000 ML IVC SCH (09:51)
[2020-11-22] MEDS ORDERED: hydrOXYzine pamoate 25 MG CAPSULE PO PRN (09:51)
[2020-11-22] MEDS ORDERED: tiZANidine 4 MG TABLET PO PRN (09:51)
[2020-11-22] MEDS ORDERED: Naloxone 0.4 MG/ML INJ IVP PRN (09:51)
[2020-11-22] MEDS ORDERED: Silver Sulfadiazine 50 GM TUBE TP PRN (09:51)
[2020-11-23 04:51] LABS: Hematocrit 27.1 % (35.3-44.9); Hemoglobin 8.5 g/dL (11.5-15.4); Immature Platelets 5.6 % (1.1-6.1); Mean Corpuscular HGB Conc 31.4 g/dL (31.6-35.5); Mean Corpuscular Hemoglobin 27.2 pg (28.0-33.3); Mean Corpuscular Volume 86.9 fL (83.0-100.0); Mean Platelet Volume 11.1 fL (9.4-12.4); Red Blood Count 3.12 M/mcL (3.82-4.97); Red Cell Distribution Width 15.4 % (11.5-14.5); White Blood Count 7.3 K/mcL (4.3-11.1)
[2020-11-23 05:09] LABS: BUN/Creatinine Ratio 13 (6-26); Blood Urea Nitrogen 9 mg/dL (6-20); Calcium 9.2 mg/dL (8.6-10.3); Carbon Dioxide 21 mEq/L (23-29); Chloride 108 mEq/L (98-107); Glucose 58 mg/dL (70-105); Osmolality,Calculated 284 (280-300); Potassium 3.2 mEq/L (3.5-5.1); Sodium 139 mEq/L (136-145); eGFR For African Americans > 60 (> 60); eGFR For Non-African Americans > 60 (> 60)
[2020-11-23] MEDS: Piperacillin/Tazobactam 3.375 GM in 0.9 % Sodium Chloride Mini Bag 100 ML IVPB SCH ×3 (06:11→20:01)
[2020-11-23] MEDS: *HR* Heparin 5,000 UNIT/ML VIAL SQ SCH ×2 (06:11→17:21)
[2020-11-23] MEDS: 0.9 % Sodium Chloride 1,000 ML IVC SCH (07:44)
[2020-11-24] MEDS: *HR* Heparin 5,000 UNIT/ML VIAL SQ SCH (05:00)
[2020-11-24] MEDS: Piperacillin/Tazobactam 3.375 GM in 0.9 % Sodium Chloride Mini Bag 100 ML IVPB SCH (05:29)
[2020-11-24] MEDS: D5% in 0.45% NACL w KCl 20 MEQ/1,000 ML MLS IVC SCH (07:46)
[2020-11-24] MEDS ORDERED: CefOXitin 1,000 MG VIAL ONE (13:13)
[2020-11-24] MEDS ORDERED: Dexmedetomidine HCl 400 MCG/100 ML MLS IVC ONE (13:52)
[2020-11-24] MEDS ORDERED: *HR* FentaNYL (PF) 100 MCG/2 ML VIAL ONE (13:54)
[2020-11-24] MEDS ORDERED: *HR* Propofol 200 MG/20 ML VIAL IVP ONE (13:54)
[2020-11-24] MEDS ORDERED: Lidocaine -MPF 2% 2 ML VIAL ONE (13:56)
[2020-11-24] MEDS ORDERED: Ondansetron 4 MG/2 ML VIAL ONE (13:56)
[2020-11-24] MEDS ORDERED: *HR* Rocuronium Bromide 50 MG/5 ML VIAL ONE (13:56)
[2020-11-24] MEDS ORDERED: *HR* Midazolam HCl 2 MG/2 ML VIAL ONE (14:04)
[2020-11-24] MEDS ORDERED: Ondansetron 4 MG/2 ML VIAL IVP PRN (14:21)
[2020-11-24] MEDS ORDERED: *HR* FentaNYL (PF) 100 MCG/2 ML VIAL IVP PRN (14:21)
[2020-11-24] MEDS ORDERED: *HR* Phenylephrine 10 MG/ML VIAL ONE (15:20)
[2020-11-24] MEDS ORDERED: EPHEDrine 50 MG/ML VIAL ONE (15:39)
[2020-11-24] MEDS ORDERED: Albumin Human 5% 12.5 GM/250 ML IV.SOLN ONE (15:45)
[2020-11-24] MEDS ORDERED: Cefepime HCl 2,000 MG in Water for inj. (sterile) 20 ML IVP SCH (18:00)
[2020-11-24 18:33] LABS: VBG HCO3 21 mEq/L (21-27); VBG PCO2 48 mmHg (41-51); VBG PH 7.25 pH Units (7.32-7.42); VBG PO2 52 mmHg (25-50)
[2020-11-24] MEDS: Phenylephrine 10 MG in 0.9 % Sodium Chloride 250 ML IVC SCH ×2 (18:55→21:32)
[2020-11-24 19:01] LABS: Basophils % 0.3 %; Eosinophils % 0.8 %; Monocytes % 10.4 %; Red Cell Distribution Width 15.5 % (11.5-14.5); Segmented Neutrophils % 57.4 %
[2020-11-24 19:03] LABS: Alanine Aminotransferase 14 Units/L (7-52); Albumin 2.7 g/dL (3.5-5.7); Albumin/Globulin Ratio 1.7 (1.1-2.2); Alkaline Phosphatase 49 Units/L (34-104); Aspartate Amino Transferase 12 Units/L (13-39); BUN/Creatinine Ratio 8 (6-26); Bilirubin,Total 0.5 mg/dL (0.3-1.0); Blood Urea Nitrogen 7 mg/dL (6-20); Calcium 8.3 mg/dL (8.6-10.3); Carbon Dioxide 21 mEq/L (23-29); Chloride 108 mEq/L (98-107); Globulin 1.6 g/dL (2.4-3.5); Glucose 153 mg/dL (70-105); Hemoglobin 6.1 g/dL (11.5-15.4); Immature Granulocytes % 1.4 % (0-4); Immature Platelets 4.6 % (1.1-6.1); Lymphocytes # 1.1 K/mcL (0.6-4.6); Lymphocytes % 29.7 %; Mean Corpuscular HGB Conc 30.5 g/dL (31.6-35.5); Mean Corpuscular Hemoglobin 27.1 pg (28.0-33.3); Mean Corpuscular Volume 88.9 fL (83.0-100.0); Mean Platelet Volume 11.5 fL (9.4-12.4); Monocytes # 0.4 K/mcL (0.0-1.3); Neutrophils # 2.1 K/mcL (1.6-8.9); Nucleated Red Blood Cells 3.4 /100 WBC (0); Osmolality,Calculated 287 (280-300); Potassium 3.8 mEq/L (3.5-5.1); Red Blood Count 2.25 M/mcL (3.82-4.97); Sodium 138 mEq/L (136-145); Total Protein 4.3 g/dL (6.4-8.9); White Blood Count 3.6 K/mcL (4.3-11.1); eGFR For African Americans > 60 (> 60); eGFR For Non-African Americans > 60 (> 60)
[2020-11-24 19:06] LABS: Platelet Count 98 K/mcL (140-400)
[2020-11-24] MEDS ORDERED: 0.9 % Sodium Chloride 250 ML IVC SCH (20:15)
[2020-11-24] MEDS ORDERED: 0.9 % Sodium Chloride 500 ML ONE (21:46)
[2020-11-24 23:27] LABS: ABG Base Excess -8 mEq/L (-2 to 3); ABG HCO3 16 mEq/L (21-27); ABG Oxygen Saturation 95 % (95-98); ABG PCO2 28 mmHg (35-45); ABG PH 7.37 pH Units (7.32-7.45); ABG PO2 77 mmHg (85-104); ABG TCO2 17 mEq/L (20-26)
[2020-11-25] MEDS: Phenylephrine 10 MG in 0.9 % Sodium Chloride 250 ML IVC SCH (01:35)
[2020-11-25] MEDS: D5% in 0.45% NACL w KCl 20 MEQ/1,000 ML MLS IVC SCH (02:35)
[2020-11-25] MEDS ORDERED: Nystatin POWDER 30 GM BOTTLE TP PRN (03:25)
[2020-11-25] MEDS ORDERED: D5% in 0.45% NACL w KCl 20 MEQ/1,000 ML MLS IVC SCH (03:25)
[2020-11-25] MEDS ORDERED: Naloxone 0.4 MG/ML INJ IVP PRN (03:25)
[2020-11-25] MEDS ORDERED: hydrOXYzine pamoate 25 MG CAPSULE PO PRN (03:25)
[2020-11-25] MEDS ORDERED: Dextrose Gel 15 GM/37.5 ML TUBE PO PRN ×2 (03:25)
[2020-11-25] MEDS ORDERED: Silver Sulfadiazine 50 GM TUBE TP PRN (03:25)
[2020-11-25] MEDS ORDERED: *HR* Dextrose 50 % in Water (Vial) 50 ML VIAL IVP PRN (03:25)
[2020-11-25] MEDS ORDERED: tiZANidine 4 MG TABLET PO PRN (03:25)
[2020-11-25] MEDS ORDERED: D5% in Water 1,000 ML IVC PRN (03:25)
[2020-11-25] MEDS ORDERED: Ondansetron 4 MG/2 ML VIAL IVP PRN (03:25)
[2020-11-25 04:59] LABS: BUN/Creatinine Ratio 8 (6-26); Blood Urea Nitrogen 8 mg/dL (6-20); Calcium 8.3 mg/dL (8.6-10.3); Carbon Dioxide 19 mEq/L (23-29); Chloride 109 mEq/L (98-107); Glucose 140 mg/dL (70-105); Osmolality,Calculated 293 (280-300); Potassium 3.8 mEq/L (3.5-5.1); Sodium 141 mEq/L (136-145); eGFR For African Americans > 60 (> 60); eGFR For Non-African Americans 57 (> 60)
[2020-11-25 05:00] LABS: Hematocrit 29.3 % (35.3-44.9); Hemoglobin 9.8 g/dL (11.5-15.4); Immature Platelets 6.6 % (1.1-6.1); Mean Corpuscular HGB Conc 33.4 g/dL (31.6-35.5); Mean Corpuscular Hemoglobin 28.9 pg (28.0-33.3); Mean Corpuscular Volume 86.4 fL (83.0-100.0); Mean Platelet Volume 11.3 fL (9.4-12.4); Neutrophils # 9.9 K/mcL (1.6-8.9); Nucleated Red Blood Cells 2.1 /100 WBC (0); Platelet Count 119 K/mcL (140-400); Red Blood Count 3.39 M/mcL (3.82-4.97); Red Cell Distribution Width 14.3 % (11.5-14.5); White Blood Count 12.1 K/mcL (4.3-11.1)
[2020-11-25] MEDS: Cefepime HCl 2,000 MG in Water for inj. (sterile) 20 ML IVP SCH ×2 (06:04→18:20)
[2020-11-25 06:52] LABS: Calcium 8.1 mg/dL (8.6-10.3); Potassium 3.7 mEq/L (3.5-5.1)
[2020-11-25 08:45] LABS: Lymphocytes # 1.7 K/mcL (0.6-4.6); Monocytes # 0.5 K/mcL (0.0-1.3); Platelet Estimate Normal (Normal)
[2020-11-25] MEDS ORDERED: Furosemide 20 MG/2 ML VIAL IVP ONE (11:53)
[2020-11-26] MEDS: Cefepime HCl 2,000 MG in Water for inj. (sterile) 20 ML IVP SCH ×2 (05:45→17:47)
[2020-11-26 06:56] LABS: Hematocrit 21.7 % (35.3-44.9); Mean Corpuscular HGB Conc 33.6 g/dL (31.6-35.5); Mean Corpuscular Volume 86.1 fL (83.0-100.0); Mean Platelet Volume 11.1 fL (9.4-12.4); Platelet Count 149 K/mcL (140-400); Red Blood Count 2.52 M/mcL (3.82-4.97); Red Cell Distribution Width 15.1 % (11.5-14.5); White Blood Count 16.7 K/mcL (4.3-11.1)
[2020-11-26 07:16] LABS: Calcium 8.6 mg/dL (8.6-10.3); Magnesium 1.2 mg/dL (1.6-2.6); Potassium 3.1 mEq/L (3.5-5.1)
[2020-11-26 07:34] LABS: Hemoglobin 7.3 g/dL (11.5-15.4)
[2020-11-26] MEDS ORDERED: Ergocalciferol (VIT D2) 50,000 UNIT (1.25MG) CAP PO SCH ×3 (09:00)
[2020-11-26] MEDS ORDERED: Potassium Chloride 40 MEQ, Lidocaine 1% 2 ML in 0.9 % Sodium Chloride 500 ML IVPB ONE (10:20)
[2020-11-27 03:31] LABS: Hematocrit 20.1 % (35.3-44.9); Hemoglobin 6.5 g/dL (11.5-15.4); Mean Corpuscular HGB Conc 32.3 g/dL (31.6-35.5); Mean Corpuscular Hemoglobin 27.9 pg (28.0-33.3); Mean Corpuscular Volume 86.3 fL (83.0-100.0); Mean Platelet Volume 10.7 fL (9.4-12.4); Platelet Count 169 K/mcL (140-400); Red Blood Count 2.33 M/mcL (3.82-4.97); Red Cell Distribution Width 15.3 % (11.5-14.5); White Blood Count 14.8 K/mcL (4.3-11.1)
[2020-11-27 03:51] LABS: Calcium 8.7 mg/dL (8.6-10.3); Potassium 3.9 mEq/L (3.5-5.1)
[2020-11-27] MEDS: Cefepime HCl 2,000 MG in Water for inj. (sterile) 20 ML IVP SCH ×2 (05:04→18:30)
[2020-11-27] MEDS ORDERED: 0.9 % Sodium Chloride 250 ML IVC SCH (07:30)
[2020-11-28] MEDS: Cefepime HCl 2,000 MG in Water for inj. (sterile) 20 ML IVP SCH ×2 (04:58→18:27)
[2020-11-28 05:35] LABS: Hemoglobin 12.5 g/dL (11.5-15.4); Mean Corpuscular HGB Conc 33.8 g/dL (31.6-35.5); Mean Corpuscular Hemoglobin 28.3 pg (28.0-33.3); Mean Corpuscular Volume 83.7 fL (83.0-100.0); Mean Platelet Volume 10.1 fL (9.4-12.4); Platelet Count 188 K/mcL (140-400); Red Blood Count 4.42 M/mcL (3.82-4.97); Red Cell Distribution Width 15.2 % (11.5-14.5); White Blood Count 11.7 K/mcL (4.3-11.1)
[2020-11-28 06:07] LABS: BUN/Creatinine Ratio 20 (6-26); Blood Urea Nitrogen 21 mg/dL (6-20); Calcium 8.6 mg/dL (8.6-10.3); Carbon Dioxide 28 mEq/L (23-29); Chloride 108 mEq/L (98-107); Glucose 113 mg/dL (70-105); Osmolality,Calculated 300 (280-300); Potassium 3.6 mEq/L (3.5-5.1); Sodium 143 mEq/L (136-145); eGFR For African Americans > 60 (> 60); eGFR For Non-African Americans 54 (> 60)
[2020-11-28 07:50] LABS: Magnesium 1.7 mg/dL (1.6-2.6); Phosphorous 1.4 mg/dL (2.7-4.5)
[2020-11-29] MEDS: Cefepime HCl 2,000 MG in Water for inj. (sterile) 20 ML IVP SCH (05:43)
[2020-11-29 07:01] LABS: Hematocrit 45.1 % (35.3-44.9); Hemoglobin 14.6 g/dL (11.5-15.4); Mean Corpuscular HGB Conc 32.4 g/dL (31.6-35.5); Mean Corpuscular Hemoglobin 27.8 pg (28.0-33.3); Mean Corpuscular Volume 85.9 fL (83.0-100.0); Platelet Count 181 K/mcL (140-400); Red Blood Count 5.25 M/mcL (3.82-4.97); Red Cell Distribution Width 17.2 % (11.5-14.5)
[2020-11-29 07:24] LABS: BUN/Creatinine Ratio 29 (6-26); Blood Urea Nitrogen 29 mg/dL (6-20); Calcium 8.8 mg/dL (8.6-10.3); Carbon Dioxide 27 mEq/L (23-29); Chloride 108 mEq/L (98-107); Glucose 120 mg/dL (70-105); Magnesium 1.7 mg/dL (1.6-2.6); Osmolality,Calculated 301 (280-300); Phosphorous 2.2 mg/dL (2.7-4.5); Potassium 4.3 mEq/L (3.5-5.1); Sodium 142 mEq/L (136-145); eGFR For African Americans > 60 (> 60); eGFR For Non-African Americans 56 (> 60)
[2020-11-29 11:34] LABS: Bilirubin,Urine Negative (Negative); Blood,Urine Large (Negative); Clarity,Urine Turbid (Clear); Color,Urine Light-Orange (Yellow); Glucose,Urine (UA) Normal (Normal); Hyaline Casts,Urine Few per lpf (None Seen); Ketones,Urine Negative (Negative); Leukocyte Esterase,Urine Large (Negative); Mucus,Urine Few per lpf (None-Few); Nitrite,Urine Negative (Negative); Protein,Urine 100 mg/dL (Neg-Trace); RBC,Urine TNTC per hpf (0-3); Renal Epithelial Cells,Urine Few per hpf (None-Few); Specific Gravity,Urine 1.016 (1.010-1.025); Squamous Epithelial Cell,Urine Few per hpf (None-Few); Transitional Epi Cells,Urine Few per hpf (None-Few); Urobilinogen,Urine Normal (Normal); WBC,Urine TNTC per hpf (0-3)
[2020-11-29] MEDS: 0.9 % Sodium Chloride 1,000 ML IVC SCH ×2 (13:44→23:22)
[2020-11-29] MEDS: Piperacillin/Tazobactam 3.375 GM in 0.9 % Sodium Chloride Mini Bag 100 ML IVPB SCH ×2 (17:51→23:22)
[2020-11-30 02:44] LABS: Basophils % 0.2 %; Eosinophils # 0.1 K/mcL (0.0-0.6); Eosinophils % 1.1 %; Hematocrit 40.8 % (35.3-44.9); Immature Granulocytes % 0.8 % (0-4); Lymphocytes # 1.4 K/mcL (0.6-4.6); Lymphocytes % 10.9 %; Mean Corpuscular HGB Conc 31.4 g/dL (31.6-35.5); Mean Corpuscular Hemoglobin 27.8 pg (28.0-33.3); Mean Corpuscular Volume 88.7 fL (83.0-100.0); Mean Platelet Volume 10.6 fL (9.4-12.4); Monocytes % 7.4 %; Neutrophils # 10.5 K/mcL (1.6-8.9); Nucleated Red Blood Cells 0.2 /100 WBC (0); Platelet Count 206 K/mcL (140-400); Red Cell Distribution Width 17.3 % (11.5-14.5); Segmented Neutrophils % 79.6 %; White Blood Count 13.2 K/mcL (4.3-11.1)
[2020-11-30 02:45] LABS: Hemoglobin 12.8 g/dL (11.5-15.4)
[2020-11-30 03:09] LABS: BUN/Creatinine Ratio 33 (6-26); Blood Urea Nitrogen 30 mg/dL (6-20); Carbon Dioxide 25 mEq/L (23-29); Chloride 115 mEq/L (98-107); Glucose 128 mg/dL (70-105); Magnesium 1.6 mg/dL (1.6-2.6); Osmolality,Calculated 312 (280-300); Phosphorous 2.4 mg/dL (2.7-4.5); Potassium 3.6 mEq/L (3.5-5.1); Sodium 147 mEq/L (136-145); eGFR For African Americans > 60 (> 60); eGFR For Non-African Americans > 60 (> 60)
[2020-11-30] MEDS: Piperacillin/Tazobactam 3.375 GM in 0.9 % Sodium Chloride Mini Bag 100 ML IVPB SCH ×2 (08:31→17:10)
[2020-12-01] MEDS: Piperacillin/Tazobactam 3.375 GM in 0.9 % Sodium Chloride Mini Bag 100 ML IVPB SCH (00:34)
[2020-12-01 05:25] LABS: BUN/Creatinine Ratio 35 (6-26); Blood Urea Nitrogen 28 mg/dL (6-20); Calcium 8.3 mg/dL (8.6-10.3); Carbon Dioxide 25 mEq/L (23-29); Chloride 116 mEq/L (98-107); Glucose 129 mg/dL (70-105); Osmolality,Calculated 315 (280-300); Potassium 3.6 mEq/L (3.5-5.1); Sodium 149 mEq/L (136-145); eGFR For African Americans > 60 (> 60); eGFR For Non-African Americans > 60 (> 60)
[2020-12-01 06:08] LABS: Basophils % 0.2 %; Eosinophils # 0.3 K/mcL (0.0-0.6); Eosinophils % 2.4 %; Hematocrit 40.2 % (35.3-44.9); Hemoglobin 12.7 g/dL (11.5-15.4); Immature Granulocytes % 0.4 % (0-4); Lymphocytes # 1.2 K/mcL (0.6-4.6); Lymphocytes % 9.7 %; Mean Corpuscular HGB Conc 31.6 g/dL (31.6-35.5); Mean Corpuscular Hemoglobin 27.9 pg (28.0-33.3); Mean Corpuscular Volume 88.4 fL (83.0-100.0); Mean Platelet Volume 11.4 fL (9.4-12.4); Monocytes # 1.1 K/mcL (0.0-1.3); Monocytes % 8.6 %; Neutrophils # 9.9 K/mcL (1.6-8.9); Nucleated Red Blood Cells 0.2 /100 WBC (0); Platelet Count 253 K/mcL (140-400); Red Blood Count 4.55 M/mcL (3.82-4.97); Segmented Neutrophils % 78.7 %; White Blood Count 12.6 K/mcL (4.3-11.1)
[2020-12-01] MEDS ORDERED: Cefepime HCl 1,000 MG in 0.9 % Sodium Chloride Mini Bag 100 ML IVPB SCH (08:00)
[2020-12-01] MEDS: Cefepime HCl 1,000 MG in Water for inj. (sterile) 10 ML IVP SCH ×2 (09:42→20:29)
[2020-12-01] MEDS ORDERED: FLU Vac QV 21-22 (6Month+)/PF 0.5 ML SYRINGE IM ONE (14:49)
[2020-12-02 07:23] LABS: Hematocrit 41.6 % (35.3-44.9); Hemoglobin 12.7 g/dL (11.5-15.4); Mean Corpuscular HGB Conc 30.5 g/dL (31.6-35.5); Mean Corpuscular Volume 91.6 fL (83.0-100.0); Mean Platelet Volume 11.1 fL (9.4-12.4); Platelet Count 274 K/mcL (140-400); Red Blood Count 4.54 M/mcL (3.82-4.97); Red Cell Distribution Width 18.6 % (11.5-14.5); White Blood Count 12.2 K/mcL (4.3-11.1)
[2020-12-02 07:42] LABS: BUN/Creatinine Ratio 37 (6-26); Blood Urea Nitrogen 30 mg/dL (6-20); Calcium 8.8 mg/dL (8.6-10.3); Carbon Dioxide 24 mEq/L (23-29); Chloride 118 mEq/L (98-107); Glucose 127 mg/dL (70-105); Osmolality,Calculated 320 (280-300); Sodium 151 mEq/L (136-145); eGFR For African Americans > 60 (> 60); eGFR For Non-African Americans > 60 (> 60)
[2020-12-02 07:57] VITALS: TEMP 97.8
[2020-12-02] MEDS: D5% in Water 1,000 ML IVC SCH ×4 (08:08→17:16)
[2020-12-02] MEDS: Cefepime HCl 1,000 MG in Water for inj. (sterile) 10 ML IVP SCH (08:20)
[2020-12-02 10:07] VITALS: BP 139/97; PULSE 110; O2SAT 92
[2020-12-02] MEDS ORDERED: FLU Vac QV 21-22 (6Month+)/PF 0.5 ML SYRINGE IM ONE (15:01)
[2020-12-02] MEDS ORDERED: Cefepime HCl 2,000 MG in Water for inj. (sterile) 20 ML IVP SCH (18:00)
== END 2020-12-02 17:20 | disposition home health service (06) | DRG 659 ==
LOC: 3ANU 13:42 → EMEROOARM 13:42 → SUATTDRO 17:33 → 3ANU 19:05 → SUATTDRO 11-22 12:36 → 2NNU 11-24 22:45 → 3ANU 11-26 15:33
PROVIDERS: ADMIT Internal Medicine; ATTEND Internal Medicine

== ENCOUNTER 2020-12-15 17:33 | Inpatient (IN) ==
[2020-12-15] MEDS ORDERED: Piperacillin/Tazobactam 3.375 GM in Water for inj. (sterile) 20 ML IVP ONE (18:17)
[2020-12-15] MEDS ORDERED: 0.9 % Sodium Chloride 1,000 ML IV ONE ×2 (18:17→20:33)
[2020-12-15 19:17] LABS: Basophils # 0.1 K/mcL (0.0-0.2); Basophils % 0.5 %; Eosinophils # 0.4 K/mcL (0.0-0.6); Eosinophils % 3.1 %; Hematocrit 44.4 % (35.3-44.9); Immature Granulocytes % 0.6 % (0-4); Lymphocytes # 1.3 K/mcL (0.6-4.6); Lymphocytes % 9.2 %; Mean Corpuscular HGB Conc 31.5 g/dL (31.6-35.5); Mean Corpuscular Hemoglobin 28.8 pg (28.0-33.3); Mean Corpuscular Volume 91.4 fL (83.0-100.0); Mean Platelet Volume 10.7 fL (9.4-12.4); Monocytes % 6.7 %; Neutrophils # 11.3 K/mcL (1.6-8.9); Platelet Count 382 K/mcL (140-400); Red Blood Count 4.86 M/mcL (3.82-4.97); Red Cell Distribution Width 18.9 % (11.5-14.5); Segmented Neutrophils % 79.9 %; White Blood Count 14.1 K/mcL (4.3-11.1)
[2020-12-15 19:28] LABS: Alanine Aminotransferase 49 Units/L (7-52); Albumin 3.5 g/dL (3.5-5.7); Albumin/Globulin Ratio 0.8 (1.1-2.2); Alkaline Phosphatase 113 Units/L (34-104); Aspartate Amino Transferase 24 Units/L (13-39); BUN/Creatinine Ratio 25 (6-26); Bilirubin,Indirect 0.5 mg/dL (0.0-1.0); Bilirubin,Total 0.5 mg/dL (0.3-1.0); Blood Urea Nitrogen 20 mg/dL (6-20); Calcium 10.6 mg/dL (8.6-10.3); Carbon Dioxide 30 mEq/L (23-29); Chloride 96 mEq/L (98-107); Globulin 4.3 g/dL (2.4-3.5); Glucose 105 mg/dL (70-105); Lipase 146 Units/L (11-82); Osmolality,Calculated 289 (280-300); Potassium 3.7 mEq/L (3.5-5.1); Sodium 138 mEq/L (136-145); Total Protein 7.8 g/dL (6.4-8.9); eGFR For African Americans > 60 (> 60); eGFR For Non-African Americans > 60 (> 60)
[2020-12-15] MEDS ORDERED: Clindamycin 600 MG/50 ML 600 MG/50 ML IV.SOLN IVPB STA (20:25)
[2020-12-15] MEDS ORDERED: Naloxone 0.4 MG/ML INJ IVP PRN (21:56)
[2020-12-15] MEDS ORDERED: Ondansetron 4 MG/2 ML VIAL IVP PRN (21:56)
[2020-12-15] MEDS ORDERED: Acetaminophen 325 MG TABLET PO PRN (21:56)
[2020-12-15] MEDS ORDERED: Melatonin 3 MG TABLET PO PRN (21:56)
[2020-12-15] MEDS: 0.9 % Sodium Chloride 1,000 ML IVC SCH (23:28)
[2020-12-16] MEDS ORDERED: Vancomycin 500 MG in 0.9 % Sodium Chloride 250 ML IVPB SCH (07:00)
[2020-12-16] MEDS: Piperacillin/Tazobactam 3.375 GM in 0.9 % Sodium Chloride Mini Bag 100 ML IVPB SCH ×2 (09:14→16:52)
[2020-12-16 10:32] LABS: Basophils # 0.1 K/mcL (0.0-0.2); Basophils % 0.7 %; Eosinophils # 0.5 K/mcL (0.0-0.6); Eosinophils % 4.4 %; Hematocrit 34.2 % (35.3-44.9); Immature Granulocytes % 0.6 % (0-4); Lymphocytes # 1.1 K/mcL (0.6-4.6); Lymphocytes % 10.6 %; Mean Corpuscular HGB Conc 31.9 g/dL (31.6-35.5); Mean Corpuscular Hemoglobin 29.6 pg (28.0-33.3); Mean Corpuscular Volume 92.9 fL (83.0-100.0); Mean Platelet Volume 10.6 fL (9.4-12.4); Monocytes # 0.8 K/mcL (0.0-1.3); Monocytes % 7.9 %; Neutrophils # 7.8 K/mcL (1.6-8.9); Platelet Count 316 K/mcL (140-400); Red Blood Count 3.68 M/mcL (3.82-4.97); Red Cell Distribution Width 18.4 % (11.5-14.5); Segmented Neutrophils % 75.8 %; White Blood Count 10.3 K/mcL (4.3-11.1)
[2020-12-16 10:34] LABS: Hemoglobin 10.9 g/dL (11.5-15.4)
[2020-12-16] MEDS ORDERED: Lidocaine 1% 20 ML MDV ID ONE (10:45)
[2020-12-16 10:47] LABS: Alanine Aminotransferase 35 Units/L (7-52); Albumin 2.6 g/dL (3.5-5.7); Albumin/Globulin Ratio 0.9 (1.1-2.2); Alkaline Phosphatase 83 Units/L (34-104); Aspartate Amino Transferase 18 Units/L (13-39); BUN/Creatinine Ratio 29 (6-26); Bilirubin,Total 0.4 mg/dL (0.3-1.0); Blood Urea Nitrogen 19 mg/dL (6-20); Calcium 8.7 mg/dL (8.6-10.3); Carbon Dioxide 26 mEq/L (23-29); Chloride 109 mEq/L (98-107); Glucose 77 mg/dL (70-105); Magnesium 1.9 mg/dL (1.6-2.6); Osmolality,Calculated 297 (280-300); Phosphorous 3.7 mg/dL (2.7-4.5); Potassium 3.4 mEq/L (3.5-5.1); Sodium 143 mEq/L (136-145); Total Protein 5.6 g/dL (6.4-8.9); eGFR For African Americans > 60 (> 60); eGFR For Non-African Americans > 60 (> 60)
[2020-12-16] MEDS: 0.9 % Sodium Chloride 1,000 ML IVC SCH (11:00)
[2020-12-16] MEDS ORDERED: 0.9 % Sodium Chloride 1,000 ML IVC SCH (11:52)
[2020-12-16 16:02] LABS: Hematocrit 34.5 % (35.3-44.9); Hemoglobin 10.8 g/dL (11.5-15.4)
[2020-12-16] MEDS: Vancomycin 500 MG in 0.9 % Sodium Chloride Mini Bag 100 ML IVPB SCH (20:10)
[2020-12-17] MEDS: Piperacillin/Tazobactam 3.375 GM in 0.9 % Sodium Chloride Mini Bag 100 ML IVPB SCH ×4 (00:01→23:38)
[2020-12-17 02:27] LABS: Basophils # 0.1 K/mcL (0.0-0.2); Eosinophils # 0.4 K/mcL (0.0-0.6); Eosinophils % 4.6 %; Hematocrit 34.4 % (35.3-44.9); Hemoglobin 10.6 g/dL (11.5-15.4); Immature Granulocytes % 0.3 % (0-4); Lymphocytes # 1.6 K/mcL (0.6-4.6); Lymphocytes % 18.6 %; Mean Corpuscular HGB Conc 30.8 g/dL (31.6-35.5); Mean Corpuscular Hemoglobin 29.5 pg (28.0-33.3); Mean Corpuscular Volume 95.8 fL (83.0-100.0); Mean Platelet Volume 10.4 fL (9.4-12.4); Monocytes # 0.8 K/mcL (0.0-1.3); Monocytes % 8.7 %; Neutrophils # 5.8 K/mcL (1.6-8.9); Platelet Count 317 K/mcL (140-400); Red Blood Count 3.59 M/mcL (3.82-4.97); Red Cell Distribution Width 18.6 % (11.5-14.5); Segmented Neutrophils % 66.8 %; White Blood Count 8.8 K/mcL (4.3-11.1)
[2020-12-17 02:46] LABS: BUN/Creatinine Ratio 28 (6-26); Blood Urea Nitrogen 19 mg/dL (6-20); Calcium 8.8 mg/dL (8.6-10.3); Carbon Dioxide 21 mEq/L (23-29); Chloride 109 mEq/L (98-107); Glucose 74 mg/dL (70-105); Lipase 108 Units/L (11-82); Osmolality,Calculated 295 (280-300); Potassium 3.9 mEq/L (3.5-5.1); Sodium 142 mEq/L (136-145); eGFR For African Americans > 60 (> 60); eGFR For Non-African Americans > 60 (> 60)
[2020-12-17] MEDS ORDERED: Nystatin POWDER 30 GM BOTTLE TP PRN (14:47)
[2020-12-17] MEDS ORDERED: hydrOXYzine pamoate 25 MG CAPSULE PO PRN (14:54)
[2020-12-17] MEDS ORDERED: tiZANidine 4 MG TABLET PO PRN (14:55)
[2020-12-17] MEDS ORDERED: Ergocalciferol (VIT D2) 50,000 UNIT (1.25MG) CAP PO SCH (15:00)
[2020-12-17] MEDS: Vancomycin 500 MG in 0.9 % Sodium Chloride Mini Bag 100 ML IVPB SCH (20:20)
[2020-12-18 03:07] LABS: Basophils # 0.1 K/mcL (0.0-0.2); Basophils % 0.8 %; Eosinophils # 0.5 K/mcL (0.0-0.6); Eosinophils % 5.5 %; Hematocrit 31.7 % (35.3-44.9); Hemoglobin 9.8 g/dL (11.5-15.4); Immature Granulocytes % 0.5 % (0-4); Lymphocytes # 1.7 K/mcL (0.6-4.6); Lymphocytes % 18.4 %; Mean Corpuscular HGB Conc 30.9 g/dL (31.6-35.5); Mean Corpuscular Hemoglobin 29.1 pg (28.0-33.3); Mean Corpuscular Volume 94.1 fL (83.0-100.0); Mean Platelet Volume 10.4 fL (9.4-12.4); Monocytes # 0.8 K/mcL (0.0-1.3); Monocytes % 8.5 %; Neutrophils # 6.1 K/mcL (1.6-8.9); Platelet Count 313 K/mcL (140-400); Red Blood Count 3.37 M/mcL (3.82-4.97); Red Cell Distribution Width 18.6 % (11.5-14.5); Segmented Neutrophils % 66.3 %; White Blood Count 9.2 K/mcL (4.3-11.1)
[2020-12-18 03:25] LABS: BUN/Creatinine Ratio 23 (6-26); Blood Urea Nitrogen 16 mg/dL (6-20); Calcium 8.8 mg/dL (8.6-10.3); Carbon Dioxide 23 mEq/L (23-29); Chloride 112 mEq/L (98-107); Glucose 127 mg/dL (70-105); Osmolality,Calculated 299 (280-300); Potassium 3.4 mEq/L (3.5-5.1); Sodium 143 mEq/L (136-145); eGFR For African Americans > 60 (> 60); eGFR For Non-African Americans > 60 (> 60)
[2020-12-18] MEDS: BuPROPion XL (24 HR) 150 MG TABLET PO SCH (08:00)
[2020-12-18] MEDS: Piperacillin/Tazobactam 3.375 GM in 0.9 % Sodium Chloride Mini Bag 100 ML IVPB SCH ×3 (08:01→23:32)
[2020-12-18] MEDS ORDERED: Potassium Chloride Elixir 20 MEQ/15 ML UDC GTUBE ONE ×2 (10:54→14:00)
[2020-12-18] MEDS: Vancomycin 500 MG in 0.9 % Sodium Chloride Mini Bag 100 ML IVPB SCH (18:13)
[2020-12-19 06:48] LABS: Magnesium 1.9 mg/dL (1.6-2.6); Phosphorous 3.5 mg/dL (2.7-4.5)
[2020-12-19 07:41] VITALS: TEMP 97.6
[2020-12-19] MEDS: Piperacillin/Tazobactam 3.375 GM in 0.9 % Sodium Chloride Mini Bag 100 ML IVPB SCH (08:00)
[2020-12-19] MEDS: BuPROPion XL (24 HR) 150 MG TABLET PO SCH (08:00)
[2020-12-19 08:36] LABS: Basophils # 0.1 K/mcL (0.0-0.2); Basophils % 0.5 %; Eosinophils # 0.6 K/mcL (0.0-0.6); Eosinophils % 5.6 %; Hematocrit 30.5 % (35.3-44.9); Hemoglobin 9.4 g/dL (11.5-15.4); Immature Granulocytes % 0.4 % (0-4); Lymphocytes # 1.5 K/mcL (0.6-4.6); Lymphocytes % 14.5 %; Mean Corpuscular HGB Conc 30.8 g/dL (31.6-35.5); Mean Corpuscular Hemoglobin 28.6 pg (28.0-33.3); Mean Corpuscular Volume 92.7 fL (83.0-100.0); Mean Platelet Volume 10.2 fL (9.4-12.4); Monocytes # 0.7 K/mcL (0.0-1.3); Monocytes % 6.6 %; Neutrophils # 7.5 K/mcL (1.6-8.9); Platelet Count 284 K/mcL (140-400); Red Blood Count 3.29 M/mcL (3.82-4.97); Red Cell Distribution Width 18.8 % (11.5-14.5); Segmented Neutrophils % 72.4 %; White Blood Count 10.4 K/mcL (4.3-11.1)
[2020-12-19 09:53] LABS: BUN/Creatinine Ratio 22 (6-26); Blood Urea Nitrogen 15 mg/dL (6-20); Calcium 8.5 mg/dL (8.6-10.3); Carbon Dioxide 27 mEq/L (23-29); Chloride 110 mEq/L (98-107); Glucose 118 mg/dL (70-105); Osmolality,Calculated 294 (280-300); Potassium 4.3 mEq/L (3.5-5.1); Sodium 141 mEq/L (136-145); eGFR For African Americans > 60 (> 60); eGFR For Non-African Americans > 60 (> 60)
[2020-12-19 11:06] VITALS: BP 104/58; PULSE 93; O2SAT 96
== END 2020-12-19 13:19 | disposition home health service (06) | DRG 393 ==
LOC: 3ANU 17:33 → EMEROOARM 17:33 → SUATTDRO 21:11 → 3ANU 21:50
PROVIDERS: ADMIT Internal Medicine; ATTEND Internal Medicine

== ENCOUNTER 2020-12-23 01:06 | Inpatient (IN) ==
[2020-12-23 05:03] LABS: Basophils # 0.1 K/mcL (0.0-0.2); Basophils % 0.4 %; Eosinophils # 0.3 K/mcL (0.0-0.6); Eosinophils % 2.6 %; Immature Granulocytes % 0.3 % (0-4); Lymphocytes # 1.6 K/mcL (0.6-4.6); Lymphocytes % 13.3 %; Mean Corpuscular HGB Conc 31.8 g/dL (31.6-35.5); Mean Corpuscular Hemoglobin 29.5 pg (28.0-33.3); Mean Platelet Volume 10.1 fL (9.4-12.4); Monocytes # 0.9 K/mcL (0.0-1.3); Neutrophils # 9.4 K/mcL (1.6-8.9); Platelet Count 358 K/mcL (140-400); Red Cell Distribution Width 18.8 % (11.5-14.5); Segmented Neutrophils % 76.4 %; White Blood Count 12.3 K/mcL (4.3-11.1)
[2020-12-23 05:06] LABS: Hemoglobin 12.7 g/dL (11.5-15.4)
[2020-12-23 05:07] LABS: Alanine Aminotransferase 27 Units/L (7-52); Albumin 3.1 g/dL (3.5-5.7); Albumin/Globulin Ratio 0.8 (1.1-2.2); Alkaline Phosphatase 93 Units/L (34-104); Aspartate Amino Transferase 15 Units/L (13-39); BUN/Creatinine Ratio 17 (6-26); Bilirubin,Direct 0.1 mg/dL (0.0-0.2); Bilirubin,Indirect 0.3 mg/dL (0.0-1.0); Bilirubin,Total 0.4 mg/dL (0.3-1.0); Blood Urea Nitrogen 14 mg/dL (6-20); Calcium 9.9 mg/dL (8.6-10.3); Carbon Dioxide 28 mEq/L (23-29); Chloride 103 mEq/L (98-107); Globulin 3.8 g/dL (2.4-3.5); Glucose 98 mg/dL (70-105); Osmolality,Calculated 290 (280-300); Potassium 3.8 mEq/L (3.5-5.1); Sodium 140 mEq/L (136-145); Total Protein 6.9 g/dL (6.4-8.9); eGFR For African Americans > 60 (> 60); eGFR For Non-African Americans > 60 (> 60)
[2020-12-23 05:29] LABS: Bilirubin,Urine Negative (Negative); Blood,Urine Moderate (Negative); Clarity,Urine Turbid (Clear); Color,Urine Light-Yellow (Yellow); Glucose,Urine (UA) Normal (Normal); Ketones,Urine Negative (Negative); Leukocyte Esterase,Urine Large (Negative); Nitrite,Urine Negative (Negative); Protein,Urine 100 mg/dL (Neg-Trace); RBC,Urine 50-100 per hpf (0-3); Renal Epithelial Cells,Urine Few per hpf (None-Few); Squamous Epithelial Cell,Urine Few per hpf (None-Few); Transitional Epi Cells,Urine Few per hpf (None-Few); Urobilinogen,Urine Normal (Normal); WBC,Urine 50-100 per hpf (0-3)
[2020-12-23] MEDS ORDERED: cefTRIAXone 1,000 MG in 0.9 % Sodium Chloride Mini Bag 100 ML IVPB ONE (06:44)
[2020-12-23] MEDS ORDERED: 0.9 % Sodium Chloride 1,000 ML IVC ONE (06:44)
[2020-12-23] MEDS ORDERED: Ondansetron 4 MG/2 ML VIAL IVP PRN (07:53)
[2020-12-23] MEDS ORDERED: Naloxone 0.4 MG/ML INJ IVP PRN (07:53)
[2020-12-23] MEDS ORDERED: cefTRIAXone 1,000 MG in Water for inj. (sterile) 10 ML IVP SCH (09:00)
[2020-12-23] MEDS: Fluconazole 200 MG/100 ML 200 MG/100 ML BAG IVPB SCH (14:19)
[2020-12-23] MEDS: Acetaminophen IV 1,000 MG/100 ML BAG IVPB SCH (16:36)
[2020-12-23] MEDS: D5% in 0.45% NACL w KCl 20 MEQ/1,000 ML MLS IVC SCH (16:40)
[2020-12-23] MEDS: *HR* Heparin 5,000 UNIT/ML VIAL SQ SCH (16:42)
[2020-12-23] MEDS: Doxycycline 100 MG in 0.9 % Sodium Chloride Mini Bag 100 ML IVPB SCH (17:05)
[2020-12-23] MEDS: Piperacillin/Tazobactam 3.375 GM in 0.9 % Sodium Chloride Mini Bag 100 ML IVPB SCH (18:12)
[2020-12-24] MEDS: Acetaminophen IV 1,000 MG/100 ML BAG IVPB SCH ×4 (00:03→23:01)
[2020-12-24] MEDS: Piperacillin/Tazobactam 3.375 GM in 0.9 % Sodium Chloride Mini Bag 100 ML IVPB SCH ×4 (00:27→23:30)
[2020-12-24 03:28] LABS: Basophils # 0.1 K/mcL (0.0-0.2); Basophils % 1.1 %; Eosinophils # 0.4 K/mcL (0.0-0.6); Eosinophils % 5.6 %; Hematocrit 32.6 % (35.3-44.9); Immature Granulocytes % 0.2 % (0-4); Lymphocytes # 1.6 K/mcL (0.6-4.6); Lymphocytes % 24.9 %; Mean Corpuscular HGB Conc 31.9 g/dL (31.6-35.5); Mean Corpuscular Hemoglobin 29.7 pg (28.0-33.3); Mean Corpuscular Volume 93.1 fL (83.0-100.0); Monocytes # 0.7 K/mcL (0.0-1.3); Monocytes % 11.3 %; Neutrophils # 3.5 K/mcL (1.6-8.9); Platelet Count 306 K/mcL (140-400); Red Cell Distribution Width 18.5 % (11.5-14.5); Segmented Neutrophils % 56.9 %; White Blood Count 6.2 K/mcL (4.3-11.1)
[2020-12-24 03:42] LABS: Alanine Aminotransferase 19 Units/L (7-52); Albumin 2.6 g/dL (3.5-5.7); Albumin/Globulin Ratio 0.9 (1.1-2.2); Alkaline Phosphatase 84 Units/L (34-104); Aspartate Amino Transferase 14 Units/L (13-39); BUN/Creatinine Ratio 15 (6-26); Bilirubin,Total 0.3 mg/dL (0.3-1.0); Blood Urea Nitrogen 11 mg/dL (6-20); Calcium 8.6 mg/dL (8.6-10.3); Carbon Dioxide 24 mEq/L (23-29); Chloride 110 mEq/L (98-107); Globulin 2.9 g/dL (2.4-3.5); Glucose 96 mg/dL (70-105); Magnesium 1.8 mg/dL (1.6-2.6); Osmolality,Calculated 291 (280-300); Phosphorous 3.6 mg/dL (2.7-4.5); Potassium 3.7 mEq/L (3.5-5.1); Sodium 141 mEq/L (136-145); Total Protein 5.5 g/dL (6.4-8.9); eGFR For African Americans > 60 (> 60); eGFR For Non-African Americans > 60 (> 60)
[2020-12-24 03:48] LABS: Hemoglobin 10.4 g/dL (11.5-15.4)
[2020-12-24] MEDS: *HR* Heparin 5,000 UNIT/ML VIAL SQ SCH ×2 (05:07→16:16)
[2020-12-24] MEDS: Doxycycline 100 MG in 0.9 % Sodium Chloride Mini Bag 100 ML IVPB SCH ×2 (05:08→17:09)
[2020-12-24] MEDS: Fluconazole 200 MG/100 ML 200 MG/100 ML BAG IVPB SCH (08:09)
[2020-12-24] MEDS: D5% in 0.45% NACL w KCl 20 MEQ/1,000 ML MLS IVC SCH ×2 (16:04→22:42)
[2020-12-25] MEDS: Doxycycline 100 MG in 0.9 % Sodium Chloride Mini Bag 100 ML IVPB SCH ×2 (06:20→16:38)
[2020-12-25] MEDS: *HR* Heparin 5,000 UNIT/ML VIAL SQ SCH ×2 (06:24→16:40)
[2020-12-25 06:32] LABS: Basophils # 0.1 K/mcL (0.0-0.2); Basophils % 0.7 %; Eosinophils # 0.4 K/mcL (0.0-0.6); Eosinophils % 4.2 %; Hematocrit 31.3 % (35.3-44.9); Hemoglobin 10.1 g/dL (11.5-15.4); Immature Granulocytes % 0.1 % (0-4); Lymphocytes # 1.8 K/mcL (0.6-4.6); Lymphocytes % 18.9 %; Mean Corpuscular HGB Conc 32.3 g/dL (31.6-35.5); Mean Corpuscular Volume 92.9 fL (83.0-100.0); Mean Platelet Volume 10.1 fL (9.4-12.4); Monocytes # 0.9 K/mcL (0.0-1.3); Monocytes % 9.2 %; Neutrophils # 6.3 K/mcL (1.6-8.9); Platelet Count 327 K/mcL (140-400); Red Blood Count 3.37 M/mcL (3.82-4.97); Red Cell Distribution Width 18.6 % (11.5-14.5); Segmented Neutrophils % 66.9 %
[2020-12-25 06:37] LABS: White Blood Count 9.4 K/mcL (4.3-11.1)
[2020-12-25 06:53] LABS: BUN/Creatinine Ratio 12 (6-26); Blood Urea Nitrogen 9 mg/dL (6-20); Carbon Dioxide 24 mEq/L (23-29); Chloride 109 mEq/L (98-107); Glucose 97 mg/dL (70-105); Magnesium 1.6 mg/dL (1.6-2.6); Osmolality,Calculated 289 (280-300); Phosphorous 3.1 mg/dL (2.7-4.5); Potassium 3.6 mEq/L (3.5-5.1); Sodium 140 mEq/L (136-145); eGFR For African Americans > 60 (> 60); eGFR For Non-African Americans > 60 (> 60)
[2020-12-25] MEDS ORDERED: *HR* Propofol 200 MG/20 ML VIAL IVP ONE (06:58)
[2020-12-25] MEDS ORDERED: *HR* Succinylcholine 200 MG/10 ML VIAL IVP ONE (07:00)
[2020-12-25] MEDS ORDERED: Lidocaine -MPF 2% 5 ML VIAL ONE (07:02)
[2020-12-25] MEDS ORDERED: *HR* Midazolam HCl 2 MG/2 ML VIAL ONE (07:04)
[2020-12-25] MEDS ORDERED: *HR* FentaNYL (PF) 100 MCG/2 ML VIAL ONE (07:04)
[2020-12-25] MEDS: Acetaminophen IV 1,000 MG/100 ML BAG IVPB SCH ×2 (08:20→15:42)
[2020-12-25] MEDS: Fluconazole 200 MG/100 ML 200 MG/100 ML BAG IVPB SCH (08:48)
[2020-12-25] MEDS: Piperacillin/Tazobactam 3.375 GM in 0.9 % Sodium Chloride Mini Bag 100 ML IVPB SCH ×2 (09:55→16:39)
[2020-12-25 09:56] LABS: Triglycerides 132 mg/dL (< 150)
[2020-12-25] MEDS ORDERED: D10% in Water 500 ML IVC PRN (10:49)
[2020-12-25] MEDS ORDERED: *HR* Dextrose 50 % in Water (Syg) 50 ML SYRINGE IVP PRN (11:11)
[2020-12-25] MEDS ORDERED: Dextrose Gel 15 GM/37.5 ML TUBE PO PRN ×2 (11:11)
[2020-12-25] MEDS ORDERED: D5% in Water 1,000 ML IVC PRN (11:11)
[2020-12-25] MEDS ORDERED: Lidocaine -MPF 1% 5 ML AMPUL INFILT ONE (13:08)
[2020-12-25] MEDS: Insulin LISPRO 300 UNITS/3 ML VIAL SUBQ SCH ×3 (13:15→21:48)
[2020-12-25] MEDS ORDERED: Clinimix E 5%-15% SOLUTION 2,000 ML with MVI, adult with vitamin K 10 ML IVC SCH (17:00)
[2020-12-25] MEDS ORDERED: D5% in 0.45% NACL w KCl 20 MEQ/1,000 ML MLS IVC SCH (18:58)
[2020-12-25] MEDS: D5% in 0.45% NACL w KCl 20 MEQ/1,000 ML MLS IVC SCH (19:39)
[2020-12-26] MEDS: Acetaminophen IV 1,000 MG/100 ML BAG IVPB SCH ×3 (00:08→16:43)
[2020-12-26] MEDS: Piperacillin/Tazobactam 3.375 GM in 0.9 % Sodium Chloride Mini Bag 100 ML IVPB SCH ×3 (00:15→15:03)
[2020-12-26] MEDS: Insulin LISPRO 300 UNITS/3 ML VIAL SUBQ SCH ×6 (00:19→19:54)
[2020-12-26] MEDS: Doxycycline 100 MG in 0.9 % Sodium Chloride Mini Bag 100 ML IVPB SCH ×2 (05:10→16:44)
[2020-12-26] MEDS: *HR* Heparin 5,000 UNIT/ML VIAL SQ SCH ×2 (05:11→19:15)
[2020-12-26] MEDS: Fluconazole 200 MG/100 ML 200 MG/100 ML BAG IVPB SCH (08:16)
[2020-12-26 08:32] LABS: BUN/Creatinine Ratio 18 (6-26); Blood Urea Nitrogen 13 mg/dL (6-20); Calcium 8.8 mg/dL (8.6-10.3); Carbon Dioxide 25 mEq/L (23-29); Chloride 107 mEq/L (98-107); Glucose 166 mg/dL (70-105); Magnesium 1.5 mg/dL (1.6-2.6); Osmolality,Calculated 290 (280-300); Potassium 3.6 mEq/L (3.5-5.1); Sodium 138 mEq/L (136-145); eGFR For African Americans > 60 (> 60); eGFR For Non-African Americans > 60 (> 60)
[2020-12-26 10:19] LABS: Phosphorous 3.4 mg/dL (2.7-4.5)
[2020-12-26] MEDS ORDERED: 0.9 % Sodium Chloride 500 ML ONE (13:57)
[2020-12-26] MEDS ORDERED: Isovue-300 50ML VIAL IVP ONE (14:23)
[2020-12-26] MEDS ORDERED: Clinimix E 5%-15% SOLUTION 2,000 ML with MVI, adult with vitamin K 10 ML IVC SCH (17:00)
[2020-12-26] MEDS ORDERED: *HR* HYDROmorphone PF 0.5 MG/0.5 ML SYRINGE IVP PRN (19:39)
[2020-12-26] MEDS ORDERED: Ondansetron 4 MG/2 ML VIAL IVP PRN (19:39)
[2020-12-26] MEDS ORDERED: Promethazine 6.25 MG in Water for inj. (sterile) 20 ML IVPB PRN (19:39)
[2020-12-26] MEDS ORDERED: *HR* Rocuronium Bromide 50 MG/5 ML VIAL ONE (21:08)
[2020-12-26] MEDS ORDERED: *HR* Propofol 200 MG/20 ML VIAL IVP ONE (21:08)
[2020-12-26] MEDS ORDERED: Lidocaine HCL 4 ML Topical Solution (Laryng-O-Jet Kit Sterile Pak) TP ONE (21:08)
[2020-12-26] MEDS ORDERED: Ondansetron 4 MG/2 ML VIAL ONE (21:08)
[2020-12-26] MEDS ORDERED: Lidocaine -MPF 2% 5 ML VIAL ONE (21:08)
[2020-12-26] MEDS ORDERED: *HR* FentaNYL (PF) 100 MCG/2 ML VIAL ONE (21:08)
[2020-12-26] MEDS ORDERED: Albumin Human 5% 25.0 GM/500 ML IV.SOLN ONE (21:16)
[2020-12-26] MEDS ORDERED: *HR* Magnesium Sulfate 1 GM/2 ML VIAL ONE (21:19)
[2020-12-26] MEDS ORDERED: Lacri-Lube 3.5 GM TUBE ONE (21:37)
[2020-12-26] MEDS ORDERED: Oxymetazoline Nasal SPRAY BOTTLE 15ML NS ONE (21:46)
[2020-12-26] MEDS ORDERED: CefOXitin 2,000 MG VIAL ONE (21:52)
[2020-12-26] MEDS ORDERED: Sugammadex Sodium 200 MG/2 ML VIAL IV ONE (22:17)
[2020-12-27] MEDS: Insulin LISPRO 300 UNITS/3 ML VIAL SUBQ SCH ×6 (00:23→21:37)
[2020-12-27] MEDS: Acetaminophen IV 1,000 MG/100 ML BAG IVPB SCH ×3 (00:44→15:54)
[2020-12-27] MEDS: Piperacillin/Tazobactam 3.375 GM in 0.9 % Sodium Chloride Mini Bag 100 ML IVPB SCH ×3 (01:01→17:57)
[2020-12-27] MEDS: Doxycycline 100 MG in 0.9 % Sodium Chloride Mini Bag 100 ML IVPB SCH ×2 (05:00→17:58)
[2020-12-27] MEDS: *HR* Heparin 5,000 UNIT/ML VIAL SQ SCH ×2 (05:01→18:08)
[2020-12-27 06:18] LABS: Blood Urea Nitrogen 18 mg/dL (6-20); Calcium 8.6 mg/dL (8.6-10.3); Carbon Dioxide 22 mEq/L (23-29); Chloride 99 mEq/L (98-107); Magnesium 2.2 mg/dL (1.6-2.6); Phosphorous 6.7 mg/dL (2.7-4.5); Potassium 5.6 mEq/L (3.5-5.1); Sodium 131 mEq/L (136-145)
[2020-12-27 06:34] LABS: Glucose 1161 mg/dL (70-105); Osmolality,Calculated 333 (280-300)
[2020-12-27 08:11] LABS: BUN/Creatinine Ratio 27 (6-26); eGFR For African Americans > 60 (> 60); eGFR For Non-African Americans > 60 (> 60)
[2020-12-27] MEDS: Fluconazole 200 MG/100 ML 200 MG/100 ML BAG IVPB SCH (08:26)
[2020-12-27] MEDS ORDERED: Furosemide 40 MG/4 ML VIAL IVP STA (11:45)
[2020-12-27 12:23] LABS: BUN/Creatinine Ratio 33 (6-26); Blood Urea Nitrogen 22 mg/dL (6-20); Carbon Dioxide 25 mEq/L (23-29); Chloride 108 mEq/L (98-107); Glucose 175 mg/dL (70-105); Magnesium 1.8 mg/dL (1.6-2.6); Osmolality,Calculated 296 (280-300); Phosphorous 3.3 mg/dL (2.7-4.5); Potassium 3.7 mEq/L (3.5-5.1); Sodium 139 mEq/L (136-145); eGFR For African Americans > 60 (> 60); eGFR For Non-African Americans > 60 (> 60)
[2020-12-27] MEDS ORDERED: D10% in Water 500 ML IVC PRN (12:41)
[2020-12-27 15:13] LABS: BUN/Creatinine Ratio 38 (6-26); Blood Urea Nitrogen 25 mg/dL (6-20); Calcium 9.1 mg/dL (8.6-10.3); Carbon Dioxide 28 mEq/L (23-29); Chloride 106 mEq/L (98-107); Glucose 111 mg/dL (70-105); Osmolality,Calculated 295 (280-300); Potassium 3.7 mEq/L (3.5-5.1); Sodium 140 mEq/L (136-145); eGFR For African Americans > 60 (> 60); eGFR For Non-African Americans > 60 (> 60)
[2020-12-27] MEDS ORDERED: Clinimix E 5%-15% SOLUTION 2,000 ML with MVI, adult with vitamin K 10 ML IVC SCH (17:00)
[2020-12-28] MEDS: Acetaminophen IV 1,000 MG/100 ML BAG IVPB SCH ×4 (00:44→23:17)
[2020-12-28] MEDS: Insulin LISPRO 300 UNITS/3 ML VIAL SUBQ SCH ×6 (01:31→19:53)
[2020-12-28 02:58] LABS: Basophils # 0.1 K/mcL (0.0-0.2); Basophils % 0.6 %; Eosinophils # 0.1 K/mcL (0.0-0.6); Eosinophils % 0.8 %; Hemoglobin 9.4 g/dL (11.5-15.4); Immature Granulocytes % 0.2 % (0-4); Lymphocytes # 2.9 K/mcL (0.6-4.6); Lymphocytes % 23.2 %; Mean Corpuscular HGB Conc 31.3 g/dL (31.6-35.5); Mean Corpuscular Hemoglobin 28.9 pg (28.0-33.3); Mean Corpuscular Volume 92.3 fL (83.0-100.0); Mean Platelet Volume 10.3 fL (9.4-12.4); Monocytes # 1.3 K/mcL (0.0-1.3); Neutrophils # 8.1 K/mcL (1.6-8.9); Platelet Count 346 K/mcL (140-400); Red Blood Count 3.25 M/mcL (3.82-4.97); Red Cell Distribution Width 19.5 % (11.5-14.5); Segmented Neutrophils % 65.2 %; White Blood Count 12.5 K/mcL (4.3-11.1)
[2020-12-28] MEDS: Piperacillin/Tazobactam 3.375 GM in 0.9 % Sodium Chloride Mini Bag 100 ML IVPB SCH ×3 (03:00→16:50)
[2020-12-28 04:35] LABS: BUN/Creatinine Ratio 45 (6-26); Blood Urea Nitrogen 32 mg/dL (6-20); Calcium 9.2 mg/dL (8.6-10.3); Carbon Dioxide 31 mEq/L (23-29); Chloride 101 mEq/L (98-107); Glucose 103 mg/dL (70-105); Magnesium 1.8 mg/dL (1.6-2.6); Osmolality,Calculated 301 (280-300); Phosphorous 4.2 mg/dL (2.7-4.5); Potassium 3.3 mEq/L (3.5-5.1); Sodium 142 mEq/L (136-145); eGFR For African Americans > 60 (> 60); eGFR For Non-African Americans > 60 (> 60)
[2020-12-28] MEDS: Doxycycline 100 MG in 0.9 % Sodium Chloride Mini Bag 100 ML IVPB SCH (05:24)
[2020-12-28] MEDS: *HR* Heparin 5,000 UNIT/ML VIAL SQ SCH ×2 (05:25→16:51)
[2020-12-28] MEDS: Fluconazole 200 MG/100 ML 200 MG/100 ML BAG IVPB SCH (08:04)
[2020-12-28] MEDS ORDERED: Cyanocobalamin (B-12) 1,000 MCG/ML VIAL SQ ONE (10:31)
[2020-12-28] MEDS ORDERED: Iron Sucrose Complex 250 MG in 0.9 % Sodium Chloride 250 ML IVPB ONE (10:31)
[2020-12-28] MEDS ORDERED: Clinimix E 5%-15% SOLUTION 2,000 ML with MVI, adult with vitamin K 10 ML IVC SCH (17:00)
[2020-12-29] MEDS: Insulin LISPRO 300 UNITS/3 ML VIAL SUBQ SCH ×6 (02:53→20:57)
[2020-12-29] MEDS: Piperacillin/Tazobactam 3.375 GM in 0.9 % Sodium Chloride Mini Bag 100 ML IVPB SCH ×3 (03:01→15:56)
[2020-12-29] MEDS: *HR* Heparin 5,000 UNIT/ML VIAL SQ SCH ×2 (05:25→17:26)
[2020-12-29] MEDS: Acetaminophen IV 1,000 MG/100 ML BAG IVPB SCH (07:41)
[2020-12-29] MEDS: Fluconazole 200 MG/100 ML 200 MG/100 ML BAG IVPB SCH (08:54)
[2020-12-29 11:22] LABS: Basophils # 0.1 K/mcL (0.0-0.2); Basophils % 0.8 %; Eosinophils # 0.3 K/mcL (0.0-0.6); Eosinophils % 3.8 %; Hematocrit 29.4 % (35.3-44.9); Immature Granulocytes % 0.4 % (0-4); Lymphocytes # 1.5 K/mcL (0.6-4.6); Lymphocytes % 18.2 %; Mean Corpuscular HGB Conc 30.6 g/dL (31.6-35.5); Mean Corpuscular Hemoglobin 28.8 pg (28.0-33.3); Mean Platelet Volume 10.5 fL (9.4-12.4); Monocytes # 0.8 K/mcL (0.0-1.3); Neutrophils # 5.7 K/mcL (1.6-8.9); Platelet Count 331 K/mcL (140-400); Red Blood Count 3.12 M/mcL (3.82-4.97); Red Cell Distribution Width 19.8 % (11.5-14.5); Segmented Neutrophils % 67.8 %; White Blood Count 8.4 K/mcL (4.3-11.1)
[2020-12-29 11:31] LABS: Mean Corpuscular Volume 94.2 fL (83.0-100.0)
[2020-12-29 11:46] LABS: BUN/Creatinine Ratio 56 (6-26); Blood Urea Nitrogen 41 mg/dL (6-20); Calcium 9.1 mg/dL (8.6-10.3); Carbon Dioxide 32 mEq/L (23-29); Chloride 105 mEq/L (98-107); Glucose 119 mg/dL (70-105); Magnesium 1.9 mg/dL (1.6-2.6); Osmolality,Calculated 305 (280-300); Phosphorous 3.7 mg/dL (2.7-4.5); Potassium 3.7 mEq/L (3.5-5.1); Sodium 142 mEq/L (136-145); eGFR For African Americans > 60 (> 60); eGFR For Non-African Americans > 60 (> 60)
[2020-12-29] MEDS ORDERED: Acetaminophen 650 MG RECTAL SUPP RC PRN (12:32)
[2020-12-29] MEDS ORDERED: Clinimix E 5%-15% SOLUTION 2,000 ML with MVI, adult with vitamin K 10 ML IVC SCH (17:00)
[2020-12-29] MEDS: Pantoprazole 40 MG VIAL IVP SCH (17:26)
[2020-12-30] MEDS: Piperacillin/Tazobactam 3.375 GM in 0.9 % Sodium Chloride Mini Bag 100 ML IVPB SCH ×3 (00:24→16:44)
[2020-12-30] MEDS: Insulin LISPRO 300 UNITS/3 ML VIAL SUBQ SCH ×6 (00:41→21:39)
[2020-12-30] MEDS: *HR* Heparin 5,000 UNIT/ML VIAL SQ SCH (05:11)
[2020-12-30] MEDS: Pantoprazole 40 MG VIAL IVP SCH ×2 (05:12→16:49)
[2020-12-30 06:00] LABS: BUN/Creatinine Ratio 55 (6-26); Blood Urea Nitrogen 41 mg/dL (6-20); Calcium 9.1 mg/dL (8.6-10.3); Carbon Dioxide 29 mEq/L (23-29); Chloride 107 mEq/L (98-107); Glucose 149 mg/dL (70-105); Osmolality,Calculated 307 (280-300); Phosphorous 3.9 mg/dL (2.7-4.5); Potassium 3.9 mEq/L (3.5-5.1); Sodium 142 mEq/L (136-145); eGFR For African Americans > 60 (> 60); eGFR For Non-African Americans > 60 (> 60)
[2020-12-30] MEDS: Fluconazole 200 MG/100 ML 200 MG/100 ML BAG IVPB SCH (08:47)
[2020-12-30] MEDS ORDERED: Clinimix E 5%-15% SOLUTION 2,000 ML with MVI, adult with vitamin K 10 ML IVC SCH (17:00)
[2020-12-30 17:34] LABS: Hematocrit 27.9 % (35.3-44.9); Hemoglobin 8.4 g/dL (11.5-15.4); Mean Corpuscular HGB Conc 30.1 g/dL (31.6-35.5); Mean Corpuscular Volume 99.6 fL (83.0-100.0); Mean Platelet Volume 10.6 fL (9.4-12.4); Platelet Count 303 K/mcL (140-400); Red Cell Distribution Width 20.1 % (11.5-14.5); White Blood Count 9.3 K/mcL (4.3-11.1)
[2020-12-31] MEDS: Piperacillin/Tazobactam 3.375 GM in 0.9 % Sodium Chloride Mini Bag 100 ML IVPB SCH ×3 (00:34→16:31)
[2020-12-31] MEDS: Insulin LISPRO 300 UNITS/3 ML VIAL SUBQ SCH ×6 (00:35→21:25)
[2020-12-31] MEDS: Pantoprazole 40 MG VIAL IVP SCH ×2 (05:16→17:19)
[2020-12-31 05:29] LABS: BUN/Creatinine Ratio 58 (6-26); Blood Urea Nitrogen 45 mg/dL (6-20); Calcium 9.3 mg/dL (8.6-10.3); Carbon Dioxide 27 mEq/L (23-29); Chloride 110 mEq/L (98-107); Glucose 123 mg/dL (70-105); Osmolality,Calculated 311 (280-300); Phosphorous 4.2 mg/dL (2.7-4.5); Potassium 4.3 mEq/L (3.5-5.1); Sodium 144 mEq/L (136-145); eGFR For African Americans > 60 (> 60); eGFR For Non-African Americans > 60 (> 60)
[2020-12-31] MEDS: Fluconazole 200 MG/100 ML 200 MG/100 ML BAG IVPB SCH (08:17)
[2020-12-31] MEDS ORDERED: Clinimix E 5%-15% SOLUTION 2,000 ML with MVI, adult with vitamin K 10 ML IVC SCH (17:00)
[2021-01-01] MEDS: Piperacillin/Tazobactam 3.375 GM in 0.9 % Sodium Chloride Mini Bag 100 ML IVPB SCH ×3 (00:48→16:22)
[2021-01-01] MEDS: Insulin LISPRO 300 UNITS/3 ML VIAL SUBQ SCH ×6 (01:11→21:53)
[2021-01-01] MEDS: Pantoprazole 40 MG VIAL IVP SCH ×2 (05:21→17:12)
[2021-01-01 06:56] LABS: Hematocrit 24.9 % (35.3-44.9); Hemoglobin 7.6 g/dL (11.5-15.4); Mean Corpuscular HGB Conc 30.5 g/dL (31.6-35.5); Mean Corpuscular Hemoglobin 29.7 pg (28.0-33.3); Mean Corpuscular Volume 97.3 fL (83.0-100.0); Mean Platelet Volume 10.6 fL (9.4-12.4); Platelet Count 343 K/mcL (140-400); Red Blood Count 2.56 M/mcL (3.82-4.97); Red Cell Distribution Width 20.6 % (11.5-14.5)
[2021-01-01 07:08] LABS: BUN/Creatinine Ratio 55 (6-26); Blood Urea Nitrogen 48 mg/dL (6-20); Calcium 9.6 mg/dL (8.6-10.3); Carbon Dioxide 26 mEq/L (23-29); Chloride 108 mEq/L (98-107); Glucose 94 mg/dL (70-105); Magnesium 2.2 mg/dL (1.6-2.6); Osmolality,Calculated 304 (280-300); Phosphorous 4.3 mg/dL (2.7-4.5); Potassium 4.4 mEq/L (3.5-5.1); Sodium 141 mEq/L (136-145); Triglycerides 165 mg/dL (< 150); eGFR For African Americans > 60 (> 60); eGFR For Non-African Americans > 60 (> 60)
[2021-01-01] MEDS: Fluconazole 200 MG/100 ML 200 MG/100 ML BAG IVPB SCH (10:05)
[2021-01-01] MEDS: predniSONE 20 MG TABLET PO SCH ×2 (13:38→17:12)
[2021-01-01] MEDS ORDERED: Clinimix E 5%-15% SOLUTION 2,000 ML with MVI, adult with vitamin K 10 ML, ZN/CU/MN/SE... IVC SCH (17:00)
[2021-01-02] MEDS: Piperacillin/Tazobactam 3.375 GM in 0.9 % Sodium Chloride Mini Bag 100 ML IVPB SCH ×4 (00:06→23:28)
[2021-01-02] MEDS: Insulin LISPRO 300 UNITS/3 ML VIAL SUBQ SCH ×7 (00:06→23:46)
[2021-01-02] MEDS: Pantoprazole 40 MG VIAL IVP SCH ×2 (05:13→18:24)
[2021-01-02 07:10] LABS: BUN/Creatinine Ratio 54 (6-26); Blood Urea Nitrogen 46 mg/dL (6-20); Calcium 9.6 mg/dL (8.6-10.3); Carbon Dioxide 25 mEq/L (23-29); Chloride 112 mEq/L (98-107); Glucose 113 mg/dL (70-105); Magnesium 2.1 mg/dL (1.6-2.6); Osmolality,Calculated 295 (280-300); Phosphorous 3.2 mg/dL (2.7-4.5); Potassium 4.6 mEq/L (3.5-5.1); Sodium 136 mEq/L (136-145); eGFR For African Americans > 60 (> 60); eGFR For Non-African Americans > 60 (> 60)
[2021-01-02] MEDS ORDERED: MethylPREDNISolone 40 MG/ML VIAL IVP PRN (07:59)
[2021-01-02] MEDS: Fluconazole 200 MG/100 ML 200 MG/100 ML BAG IVPB SCH (09:01)
[2021-01-02] MEDS ORDERED: Clinimix E 5%-15% SOLUTION 2,000 ML with MVI, adult with vitamin K 10 ML, ZN/CU/MN/SE... IVC SCH (17:00)
[2021-01-02] MEDS: *HR* Heparin 5,000 UNIT/ML VIAL SQ SCH (18:24)
[2021-01-03] MEDS: Insulin LISPRO 300 UNITS/3 ML VIAL SUBQ SCH ×6 (04:27→23:40)
[2021-01-03 05:14] LABS: Hematocrit 23.6 % (35.3-44.9); Mean Corpuscular HGB Conc 29.7 g/dL (31.6-35.5); Mean Corpuscular Hemoglobin 29.8 pg (28.0-33.3); Mean Corpuscular Volume 100.4 fL (83.0-100.0); Mean Platelet Volume 10.8 fL (9.4-12.4); Platelet Count 390 K/mcL (140-400); Red Blood Count 2.35 M/mcL (3.82-4.97); Red Cell Distribution Width 22.2 % (11.5-14.5); White Blood Count 12.9 K/mcL (4.3-11.1)
[2021-01-03] MEDS: Pantoprazole 40 MG VIAL IVP SCH ×2 (05:16→17:15)
[2021-01-03] MEDS: *HR* Heparin 5,000 UNIT/ML VIAL SQ SCH ×2 (05:16→17:15)
[2021-01-03 05:27] LABS: BUN/Creatinine Ratio 57 (6-26); Blood Urea Nitrogen 48 mg/dL (6-20); Calcium 9.7 mg/dL (8.6-10.3); Carbon Dioxide 25 mEq/L (23-29); Chloride 112 mEq/L (98-107); Glucose 118 mg/dL (70-105); Osmolality,Calculated 312 (280-300); Phosphorous 3.8 mg/dL (2.7-4.5); Potassium 4.2 mEq/L (3.5-5.1); Sodium 144 mEq/L (136-145); Triglycerides 120 mg/dL (< 150); eGFR For African Americans > 60 (> 60); eGFR For Non-African Americans > 60 (> 60)
[2021-01-03] MEDS: Piperacillin/Tazobactam 3.375 GM in 0.9 % Sodium Chloride Mini Bag 100 ML IVPB SCH ×3 (07:46→23:39)
[2021-01-03] MEDS: Fluconazole 200 MG/100 ML 200 MG/100 ML BAG IVPB SCH (07:47)
[2021-01-03 08:20] LABS: INR 1.1; Prothrombin Time 11.9 Seconds (9.4-12.1)
[2021-01-03] MEDS ORDERED: Lidocaine/EPI 1:100k 1% 50 ML VIAL ONE (15:20)
[2021-01-03] MEDS ORDERED: 0.9 % Sodium Chloride 500 ML ONE (15:20)
[2021-01-03] MEDS ORDERED: *HR* FentaNYL (PF) 100 MCG/2 ML VIAL IVP ONE (15:46)
[2021-01-03] MEDS ORDERED: Isovue-300 50ML VIAL IVP ONE (15:57)
[2021-01-03] MEDS ORDERED: Clinimix E 5%-15% SOLUTION 2,000 ML with MVI, adult with vitamin K 10 ML, ZN/CU/MN/SE... IVC SCH (17:00)
[2021-01-03] MEDS: *HR* FentaNYL (PF) 100 MCG/2 ML VIAL ONE (17:16)
[2021-01-03] MEDS ORDERED: *HR* FentaNYL (PF) 100 MCG/2 ML VIAL ONE ×2 (20:37→22:43)
[2021-01-04] MEDS: *HR* FentaNYL (PF) 100 MCG/2 ML VIAL ONE ×2 (01:44→05:54)
[2021-01-04] MEDS: Insulin LISPRO 300 UNITS/3 ML VIAL SUBQ SCH ×5 (04:30→20:36)
[2021-01-04 05:16] LABS: Basophils # 0.1 K/mcL (0.0-0.2); Basophils % 0.7 %; Eosinophils # 0.5 K/mcL (0.0-0.6); Eosinophils % 4.8 %; Hematocrit 24.5 % (35.3-44.9); Hemoglobin 7.5 g/dL (11.5-15.4); Immature Granulocytes % 0.8 % (0-4); Lymphocytes # 2.5 K/mcL (0.6-4.6); Lymphocytes % 26.4 %; Mean Corpuscular HGB Conc 30.6 g/dL (31.6-35.5); Mean Corpuscular Hemoglobin 30.9 pg (28.0-33.3); Mean Corpuscular Volume 100.8 fL (83.0-100.0); Mean Platelet Volume 10.8 fL (9.4-12.4); Monocytes # 1.1 K/mcL (0.0-1.3); Monocytes % 11.3 %; Neutrophils # 5.4 K/mcL (1.6-8.9); Platelet Count 441 K/mcL (140-400); Red Blood Count 2.43 M/mcL (3.82-4.97); Red Cell Distribution Width 22.6 % (11.5-14.5); White Blood Count 9.6 K/mcL (4.3-11.1)
[2021-01-04] MEDS: *HR* Heparin 5,000 UNIT/ML VIAL SQ SCH ×2 (05:24→16:58)
[2021-01-04] MEDS: Pantoprazole 40 MG VIAL IVP SCH ×2 (05:24→16:58)
[2021-01-04 05:30] LABS: BUN/Creatinine Ratio 60 (6-26); Blood Urea Nitrogen 52 mg/dL (6-20); Calcium 9.7 mg/dL (8.6-10.3); Carbon Dioxide 26 mEq/L (23-29); Chloride 107 mEq/L (98-107); Phosphorous 3.9 mg/dL (2.7-4.5); Potassium 4.5 mEq/L (3.5-5.1); Sodium 139 mEq/L (136-145); eGFR For African Americans > 60 (> 60); eGFR For Non-African Americans > 60 (> 60)
[2021-01-04 05:32] LABS: Glucose 102 mg/dL (70-105); Osmolality,Calculated 302 (280-300)
[2021-01-04] MEDS ORDERED: *HR* FentaNYL (PF) 100 MCG/2 ML VIAL ONE ×4 (05:52→19:40)
[2021-01-04] MEDS: Piperacillin/Tazobactam 3.375 GM in 0.9 % Sodium Chloride Mini Bag 100 ML IVPB SCH ×2 (08:23→16:57)
[2021-01-04] MEDS: Fluconazole 200 MG/100 ML 200 MG/100 ML BAG IVPB SCH (08:24)
[2021-01-04] MEDS ORDERED: Morphine Sulfate 2 MG/ML SYRINGE IVP PRN (09:05)
[2021-01-04] MEDS ORDERED: Clinimix E 5%-15% SOLUTION 2,000 ML with MVI, adult with vitamin K 10 ML, ZN/CU/MN/SE... IVC SCH (17:00)
[2021-01-05] MEDS: Insulin LISPRO 300 UNITS/3 ML VIAL SUBQ SCH ×7 (00:21→23:50)
[2021-01-05] MEDS: Piperacillin/Tazobactam 3.375 GM in 0.9 % Sodium Chloride Mini Bag 100 ML IVPB SCH ×2 (00:28→09:09)
[2021-01-05] MEDS: Pantoprazole 40 MG VIAL IVP SCH (04:49)
[2021-01-05] MEDS: *HR* Heparin 5,000 UNIT/ML VIAL SQ SCH ×2 (04:49→17:12)
[2021-01-05 05:15] LABS: Basophils % 0.4 %; Eosinophils # 0.5 K/mcL (0.0-0.6); Eosinophils % 5.5 %; Hematocrit 24.5 % (35.3-44.9); Hemoglobin 7.5 g/dL (11.5-15.4); Immature Granulocytes % 0.5 % (0-4); Lymphocytes # 1.8 K/mcL (0.6-4.6); Lymphocytes % 21.5 %; Mean Corpuscular HGB Conc 30.6 g/dL (31.6-35.5); Mean Corpuscular Hemoglobin 30.5 pg (28.0-33.3); Mean Corpuscular Volume 99.6 fL (83.0-100.0); Mean Platelet Volume 10.3 fL (9.4-12.4); Monocytes # 0.9 K/mcL (0.0-1.3); Monocytes % 10.8 %; Neutrophils # 5.1 K/mcL (1.6-8.9); Platelet Count 407 K/mcL (140-400); Red Blood Count 2.46 M/mcL (3.82-4.97); Red Cell Distribution Width 23.2 % (11.5-14.5); Segmented Neutrophils % 61.3 %; White Blood Count 8.3 K/mcL (4.3-11.1)
[2021-01-05 05:34] LABS: BUN/Creatinine Ratio 63 (6-26); Blood Urea Nitrogen 50 mg/dL (6-20); Calcium 9.4 mg/dL (8.6-10.3); Carbon Dioxide 24 mEq/L (23-29); Chloride 106 mEq/L (98-107); Glucose 127 mg/dL (70-105); Osmolality,Calculated 299 (280-300); Phosphorous 4.5 mg/dL (2.7-4.5); Potassium 4.2 mEq/L (3.5-5.1); Sodium 137 mEq/L (136-145); eGFR For African Americans > 60 (> 60); eGFR For Non-African Americans > 60 (> 60)
[2021-01-05] MEDS: Fluconazole 200 MG/100 ML 200 MG/100 ML BAG IVPB SCH (09:09)
[2021-01-06] MEDS: Insulin LISPRO 300 UNITS/3 ML VIAL SUBQ SCH ×5 (05:01→20:55)
[2021-01-06] MEDS: *HR* Heparin 5,000 UNIT/ML VIAL SQ SCH ×2 (05:13→16:18)
[2021-01-06 05:16] LABS: BUN/Creatinine Ratio 55 (6-26); Blood Urea Nitrogen 44 mg/dL (6-20); Calcium 9.8 mg/dL (8.6-10.3); Carbon Dioxide 25 mEq/L (23-29); Chloride 104 mEq/L (98-107); Glucose 117 mg/dL (70-105); Magnesium 2.1 mg/dL (1.6-2.6); Osmolality,Calculated 294 (280-300); Potassium 4.4 mEq/L (3.5-5.1); Sodium 136 mEq/L (136-145); eGFR For African Americans > 60 (> 60); eGFR For Non-African Americans > 60 (> 60)
[2021-01-06 06:15] LABS: Basophils % 0.3 %; Eosinophils # 0.6 K/mcL (0.0-0.6); Eosinophils % 6.2 %; Hematocrit 27.1 % (35.3-44.9); Immature Granulocytes % 0.4 % (0-4); Lymphocytes # 1.4 K/mcL (0.6-4.6); Lymphocytes % 15.3 %; Mean Corpuscular Hemoglobin 30.9 pg (28.0-33.3); Mean Corpuscular Volume 99.6 fL (83.0-100.0); Mean Platelet Volume 10.3 fL (9.4-12.4); Monocytes # 0.9 K/mcL (0.0-1.3); Monocytes % 9.5 %; Neutrophils # 6.2 K/mcL (1.6-8.9); Platelet Count 436 K/mcL (140-400); Red Blood Count 2.72 M/mcL (3.82-4.97); Red Cell Distribution Width 23.7 % (11.5-14.5); Segmented Neutrophils % 68.3 %; White Blood Count 9.1 K/mcL (4.3-11.1)
[2021-01-06 06:20] LABS: Hemoglobin 8.4 g/dL (11.5-15.4)
[2021-01-06 06:47] LABS: Platelet Estimate Normal (Normal)
[2021-01-06 06:48] LABS: Anisocytosis 3+ (Not Present)
[2021-01-06] MEDS: Lactobacillus 1 EACH CAP.SPRINK PO SCH ×2 (12:30→21:08)
[2021-01-06] MEDS ORDERED: Ringers Solution, Lactated 1,000 ML ONE (19:43)
[2021-01-07] MEDS: Insulin LISPRO 300 UNITS/3 ML VIAL SUBQ SCH ×3 (00:32→08:03)
[2021-01-07] MEDS: *HR* Heparin 5,000 UNIT/ML VIAL SQ SCH (05:01)
[2021-01-07 05:59] LABS: Basophils # 0.1 K/mcL (0.0-0.2); Basophils % 0.6 %; Eosinophils # 0.5 K/mcL (0.0-0.6); Eosinophils % 6.8 %; Hemoglobin 8.7 g/dL (11.5-15.4); Immature Granulocytes % 0.5 % (0-4); Lymphocytes # 1.5 K/mcL (0.6-4.6); Lymphocytes % 19.6 %; Mean Corpuscular Hemoglobin 30.3 pg (28.0-33.3); Mean Platelet Volume 10.6 fL (9.4-12.4); Monocytes # 0.8 K/mcL (0.0-1.3); Monocytes % 9.9 %; Neutrophils # 4.8 K/mcL (1.6-8.9); Platelet Count 460 K/mcL (140-400); Red Blood Count 2.87 M/mcL (3.82-4.97); Red Cell Distribution Width 24.5 % (11.5-14.5); Segmented Neutrophils % 62.6 %; White Blood Count 7.7 K/mcL (4.3-11.1)
[2021-01-07 06:20] LABS: BUN/Creatinine Ratio 44 (6-26); Blood Urea Nitrogen 39 mg/dL (6-20); Carbon Dioxide 27 mEq/L (23-29); Chloride 104 mEq/L (98-107); Glucose 117 mg/dL (70-105); Magnesium 2.2 mg/dL (1.6-2.6); Osmolality,Calculated 298 (280-300); Phosphorous 4.4 mg/dL (2.7-4.5); Potassium 4.5 mEq/L (3.5-5.1); Sodium 139 mEq/L (136-145); eGFR For African Americans > 60 (> 60); eGFR For Non-African Americans > 60 (> 60)
[2021-01-07 07:18] LABS: Platelet Estimate Normal (Normal)
[2021-01-07 07:19] LABS: Anisocytosis 2+ (Not Present); Poikilocytosis 1+ (Not Present)
[2021-01-07] MEDS: Lactobacillus 1 EACH CAP.SPRINK PO SCH (08:03)
[2021-01-07 10:30] VITALS: BP 112/71; PULSE 79; TEMP 97.9; O2SAT 94
== END 2021-01-07 12:32 | disposition home health service (06) | DRG 987 ==
LOC: EMEROOARM 01:06 → 3BNU 01:06 → SUATTDRO 07:13 → 3BNU 07:31 → SUATTDRO 12-24 19:10 → 3ANU 12-27 15:39
PROVIDERS: ADMIT Family Medicine; ATTEND Pharmacist

== ENCOUNTER 2021-01-22 15:23 | Inpatient (IN) ==
[2021-01-22] MEDS ORDERED: Piperacillin/Tazobactam 3.375 GM in Water for inj. (sterile) 20 ML IVP ONE (15:37)
[2021-01-22] MEDS: 0.9 % Sodium Chloride 1,000 ML IVC SCH ×3 (16:16→22:28)
[2021-01-22 16:38] LABS: Basophils # 0.1 K/mcL (0.0-0.2); Basophils % 0.5 %; Eosinophils # 0.2 K/mcL (0.0-0.6); Eosinophils % 1.6 %; Hematocrit 36.4 % (35.3-44.9); Immature Granulocytes % 0.4 % (0-4); Lymphocytes # 1.3 K/mcL (0.6-4.6); Lymphocytes % 9.1 %; Mean Corpuscular HGB Conc 30.2 g/dL (31.6-35.5); Mean Corpuscular Hemoglobin 30.6 pg (28.0-33.3); Mean Corpuscular Volume 101.1 fL (83.0-100.0); Monocytes # 1.2 K/mcL (0.0-1.3); Monocytes % 8.7 %; Neutrophils # 11.3 K/mcL (1.6-8.9); Platelet Count 494 K/mcL (140-400); Red Cell Distribution Width 18.6 % (11.5-14.5); Segmented Neutrophils % 79.7 %; White Blood Count 14.1 K/mcL (4.3-11.1)
[2021-01-22 16:49] LABS: INR 1.1; Prothrombin Time 12.8 Seconds (9.4-12.1)
[2021-01-22 16:50] LABS: Amorphous Sediment,Urine Few per hpf (None-Few); Bilirubin,Urine Negative (Negative); Blood,Urine Small (Negative); Clarity,Urine Ex.Turbid (Clear); Color,Urine Orange (Yellow); Glucose,Urine (UA) Normal (Normal); Ketones,Urine Negative (Negative); Leukocyte Esterase,Urine Large (Negative); Mucus,Urine Few per lpf (None-Few); Nitrite,Urine Negative (Negative); PH,Urine 6.5 pH Units (5.0-8.0); Protein,Urine 200 mg/dL (Neg-Trace); RBC,Urine 50-100 per hpf (0-3); Specific Gravity,Urine 1.006 (1.010-1.025); Squamous Epithelial Cell,Urine Moderate per hpf (None-Few); Urobilinogen,Urine Normal (Normal); WBC,Urine TNTC per hpf (0-3)
[2021-01-22 16:51] LABS: Activated Partial Thrombo Time 37.9 Seconds (26.0-36.0)
[2021-01-22 17:02] LABS: Alanine Aminotransferase 30 Units/L (7-52); Albumin 3.3 g/dL (3.5-5.7); Alkaline Phosphatase 144 Units/L (34-104); Aspartate Amino Transferase 17 Units/L (13-39); BUN/Creatinine Ratio 17 (6-26); Bilirubin,Direct 0.1 mg/dL (0.0-0.2); Bilirubin,Indirect 0.3 mg/dL (0.0-1.0); Bilirubin,Total 0.4 mg/dL (0.3-1.0); Blood Urea Nitrogen 17 mg/dL (6-20); C-Reactive Protein 66 mg/L (Less than 10); Calcium 10.1 mg/dL (8.6-10.3); Carbon Dioxide 28 mEq/L (23-29); Chloride 100 mEq/L (98-107); Globulin 3.4 g/dL (2.4-3.5); Glucose 98 mg/dL (70-105); Osmolality,Calculated 284 (280-300); Phosphorous 3.7 mg/dL (2.7-4.5); Potassium 4.1 mEq/L (3.5-5.1); Sodium 136 mEq/L (136-145); Total Protein 6.7 g/dL (6.4-8.9); Troponin I < 0.03 ng/mL (< 0.04); eGFR For African Americans > 60 (> 60); eGFR For Non-African Americans 58 (> 60)
[2021-01-22] MEDS ORDERED: Acetaminophen 325 MG TABLET PO PRN (19:22)
[2021-01-22] MEDS ORDERED: Naloxone 0.4 MG/ML INJ IVP PRN (19:22)
[2021-01-22] MEDS ORDERED: Ondansetron 4 MG/2 ML VIAL IVP PRN (19:22)
[2021-01-22] MEDS ORDERED: *HR* HYDROmorphone (PF) 1 MG/ML SYRINGE IVP PRN (20:57)
[2021-01-22] MEDS ORDERED: tiZANidine 4 MG TABLET PO PRN (21:00)
[2021-01-23] MEDS: Piperacillin/Tazobactam 3.375 GM in 0.9 % Sodium Chloride Mini Bag 100 ML IVPB SCH ×3 (01:19→16:30)
[2021-01-23 01:30] LABS: Influenza A PCR Negative (Negative); Influenza B PCR Negative (Negative); Resp. Syncytial Virus PCR Negative (Negative); SARS-CoV-2 by PCR (In House) Negative (Negative)
[2021-01-23 06:03] LABS: Basophils # 0.1 K/mcL (0.0-0.2); Basophils % 0.5 %; Eosinophils # 0.1 K/mcL (0.0-0.6); Eosinophils % 0.5 %; Hematocrit 26.2 % (35.3-44.9); Immature Granulocytes % 0.4 % (0-4); Lymphocytes # 1.5 K/mcL (0.6-4.6); Lymphocytes % 13.1 %; Mean Corpuscular HGB Conc 30.5 g/dL (31.6-35.5); Mean Corpuscular Hemoglobin 31.5 pg (28.0-33.3); Mean Corpuscular Volume 103.1 fL (83.0-100.0); Monocytes # 0.9 K/mcL (0.0-1.3); Monocytes % 7.7 %; Neutrophils # 8.6 K/mcL (1.6-8.9); Platelet Count 370 K/mcL (140-400); Red Blood Count 2.54 M/mcL (3.82-4.97); Red Cell Distribution Width 18.4 % (11.5-14.5); Segmented Neutrophils % 77.8 %; White Blood Count 11.1 K/mcL (4.3-11.1)
[2021-01-23 07:11] LABS: BUN/Creatinine Ratio 17 (6-26); Blood Urea Nitrogen 16 mg/dL (6-20); Calcium 8.1 mg/dL (8.6-10.3); Carbon Dioxide 20 mEq/L (23-29); Chloride 112 mEq/L (98-107); Glucose 78 mg/dL (70-105); Magnesium 1.7 mg/dL (1.6-2.6); Osmolality,Calculated 290 (280-300); Sodium 140 mEq/L (136-145); eGFR For African Americans > 60 (> 60); eGFR For Non-African Americans > 60 (> 60)
[2021-01-23] MEDS ORDERED: *HR* Propofol 200 MG/20 ML VIAL IVP ONE (08:19)
[2021-01-23] MEDS ORDERED: *HR* Midazolam HCl 2 MG/2 ML VIAL ONE (08:19)
[2021-01-23] MEDS ORDERED: Lidocaine -MPF 2% 5 ML VIAL ONE (08:19)
[2021-01-23] MEDS ORDERED: Ondansetron 4 MG/2 ML VIAL ONE (08:19)
[2021-01-23] MEDS ORDERED: *HR* Succinylcholine 200 MG/10 ML VIAL IVP ONE (08:19)
[2021-01-23] MEDS ORDERED: *HR* FentaNYL (PF) 100 MCG/2 ML VIAL ONE (08:19)
[2021-01-23] MEDS ORDERED: Isovue-300 50ML VIAL ONE (08:20)
[2021-01-23] MEDS: 0.9 % Sodium Chloride 1,000 ML IVC SCH (08:33)
[2021-01-23] MEDS ORDERED: *HR* HYDROcodone/Acet 7.5/325 mg TABLET PO PRN (09:04)
[2021-01-23] MEDS ORDERED: *HR* Rocuronium Bromide 50 MG/5 ML VIAL ONE (09:35)
[2021-01-23] MEDS ORDERED: Sugammadex Sodium 200 MG/2 ML VIAL IV ONE (10:16)
[2021-01-23] MEDS: D5% in 0.9% NACL 1,000 ML IVC SCH (11:38)
[2021-01-24] MEDS: Piperacillin/Tazobactam 3.375 GM in 0.9 % Sodium Chloride Mini Bag 100 ML IVPB SCH ×2 (00:57→07:59)
[2021-01-24 02:54] LABS: Basophils # 0.1 K/mcL (0.0-0.2); Basophils % 0.5 %; Eosinophils # 0.1 K/mcL (0.0-0.6); Eosinophils % 0.5 %; Hematocrit 29.7 % (35.3-44.9); Immature Granulocytes % 0.3 % (0-4); Lymphocytes # 1.5 K/mcL (0.6-4.6); Lymphocytes % 16.4 %; Mean Corpuscular HGB Conc 30.3 g/dL (31.6-35.5); Mean Corpuscular Hemoglobin 31.1 pg (28.0-33.3); Mean Corpuscular Volume 102.8 fL (83.0-100.0); Monocytes # 0.8 K/mcL (0.0-1.3); Monocytes % 8.7 %; Neutrophils # 6.7 K/mcL (1.6-8.9); Platelet Count 382 K/mcL (140-400); Red Blood Count 2.89 M/mcL (3.82-4.97); Red Cell Distribution Width 18.2 % (11.5-14.5); Segmented Neutrophils % 73.6 %; White Blood Count 9.1 K/mcL (4.3-11.1)
[2021-01-24 02:58] LABS: Blood Urea Nitrogen 15 mg/dL (6-20); Calcium 8.3 mg/dL (8.6-10.3); Carbon Dioxide 20 mEq/L (23-29); Chloride 114 mEq/L (98-107); Glucose 144 mg/dL (70-105); Magnesium 1.7 mg/dL (1.6-2.6); Osmolality,Calculated 297 (280-300); Potassium 3.5 mEq/L (3.5-5.1); Sodium 142 mEq/L (136-145)
[2021-01-24 03:38] LABS: BUN/Creatinine Ratio 19 (6-26); eGFR For African Americans > 60 (> 60); eGFR For Non-African Americans > 60 (> 60)
[2021-01-24 03:47] VITALS: PULSE 89; O2SAT 100
[2021-01-24 07:16] VITALS: BP 96/56; TEMP 97.8
[2021-01-24] MEDS: D5% in 0.9% NACL 1,000 ML IVC SCH (07:59)
== END 2021-01-24 11:43 | disposition home health service (06) | DRG 854 ==
LOC: EMEROOARM 15:23 → 3ANU 15:23 → SUATTDRO 18:40 → OBSVTOIN 18:40 → 3ANU 19:55
PROVIDERS: ADMIT Internal Medicine; ATTEND Hospitalist

== ENCOUNTER 2021-03-07 14:21 | Inpatient (IN) ==
[2021-03-07] MEDS ORDERED: 0.9 % Sodium Chloride 1,000 ML IVC ONE (14:36)
[2021-03-07] MEDS ORDERED: Piperacillin/Tazobactam 3.375 GM in 0.9 % Sodium Chloride Mini Bag 100 ML IVPB ONE (14:36)
[2021-03-07] MEDS ORDERED: Vancomycin 500 MG in 0.9 % Sodium Chloride 250 ML IVPB ONE (14:36)
[2021-03-07] MEDS ORDERED: Vancomycin 500 MG in 0.9 % Sodium Chloride Mini Bag 100 ML IVPB ONE (15:00)
[2021-03-07 15:50] LABS: Bilirubin,Urine Negative (Negative); Blood,Urine Small (Negative); Clarity,Urine Ex.Turbid (Clear); Color,Urine Yellow (Yellow); Glucose,Urine (UA) Normal (Normal); Ketones,Urine Negative (Negative); Leukocyte Esterase,Urine Large (Negative); Nitrite,Urine Positive (Negative); PH,Urine 7.5 pH Units (5.0-8.0); Protein,Urine 100 mg/dL (Neg-Trace); Urobilinogen,Urine Normal (Normal)
[2021-03-07 15:54] LABS: Squamous Epithelial Cell,Urine Present per hpf (None-Few)
[2021-03-07 15:55] LABS: Bacteria,Urine Present per hpf (None-Few); RBC,Urine Present per hpf (0-3); WBC,Urine Present per hpf (0-3)
[2021-03-07 16:02] LABS: Amphetamine Screen,Urine Negative ng/mL (Cutoff=1000); Barbiturate Screen,Urine Negative ng/mL (Cutoff=200); Benzodiazepines Screen,Urine Negative ng/mL (Cutoff=200); Cannabinoid Screen,Urine Negative ng/mL (Cutoff = 50); Cocaine Screen,Urine Negative ng/mL (Cutoff= 300); Opiate Screen,Urine Negative ng/mL (Cutoff=300); Phencyclidine Screen,Urine Negative ng/mL (Cutoff=25)
[2021-03-07 16:19] LABS: Basophils # 0.1 K/mcL (0.0-0.2); Basophils % 0.3 %; Eosinophils % 0.1 %; Hematocrit 36.9 % (35.3-44.9); Hemoglobin 11.4 g/dL (11.5-15.4); Immature Granulocytes % 0.4 % (0-4); Lymphocytes # 0.5 K/mcL (0.6-4.6); Lymphocytes % 2.4 %; Mean Corpuscular HGB Conc 30.9 g/dL (31.6-35.5); Mean Corpuscular Hemoglobin 29.8 pg (28.0-33.3); Mean Corpuscular Volume 96.3 fL (83.0-100.0); Mean Platelet Volume 10.6 fL (9.4-12.4); Monocytes # 0.1 K/mcL (0.0-1.3); Monocytes % 0.5 %; Neutrophils # 20.4 K/mcL (1.6-8.9); Platelet Count 428 K/mcL (140-400); Red Blood Count 3.83 M/mcL (3.82-4.97); Red Cell Distribution Width 15.6 % (11.5-14.5); Segmented Neutrophils % 96.3 %; White Blood Count 21.2 K/mcL (4.3-11.1)
[2021-03-07 16:40] LABS: Troponin I 0.06 ng/mL (< 0.04)
[2021-03-07 17:06] LABS: Alanine Aminotransferase 58 Units/L (7-52); Albumin/Globulin Ratio 0.8 (1.1-2.2); Alkaline Phosphatase 140 Units/L (34-104); Aspartate Amino Transferase 37 Units/L (13-39); BUN/Creatinine Ratio 19 (6-26); Bilirubin,Direct 0.1 mg/dL (0.0-0.2); Bilirubin,Indirect 0.5 mg/dL (0.0-1.0); Bilirubin,Total 0.6 mg/dL (0.3-1.0); Blood Urea Nitrogen 19 mg/dL (6-20); Calcium 9.7 mg/dL (8.6-10.3); Carbon Dioxide 20 mEq/L (23-29); Chloride 96 mEq/L (98-107); Ethanol < 10 mg/dL (Less than 10); Glucose 118 mg/dL (70-105); Osmolality,Calculated 277 (280-300); Potassium 3.9 mEq/L (3.5-5.1); Sodium 132 mEq/L (136-145); eGFR For African Americans > 60 (> 60); eGFR For Non-African Americans 55 (> 60)
[2021-03-07] MEDS ORDERED: 0.9 % Sodium Chloride 1,000 ML IV ONE (19:27)
[2021-03-07] MEDS ORDERED: Naloxone 0.4 MG/ML INJ IVP PRN (19:37)
[2021-03-07] MEDS ORDERED: Ondansetron 4 MG/2 ML VIAL IVP PRN (19:37)
[2021-03-07] MEDS ORDERED: Melatonin 3 MG TABLET PO PRN (19:37)
[2021-03-07] MEDS ORDERED: Acetaminophen 325 MG TABLET PO PRN (19:37)
[2021-03-07] MEDS ORDERED: *HR* Norepinephrine 4 MG/4 ML VIAL IVC ONE (19:44)
[2021-03-07] MEDS ORDERED: 0.9 % Sodium Chloride 250 ML ONE (19:44)
[2021-03-07] MEDS ORDERED: Norepinephrine 4 MG/254 ML IV.SOLN IVC SCH (19:45)
[2021-03-07] MEDS ORDERED: Ringers Solution, Lactated 1,000 ML IVC SCH (20:45)
[2021-03-07] MEDS ORDERED: Dextrose Gel 15 GM/37.5 ML TUBE PO PRN ×2 (21:28)
[2021-03-07] MEDS ORDERED: D5% in Water 1,000 ML IVC PRN (21:28)
[2021-03-08 00:26] LABS: ABG Base Excess -1 mEq/L (-2 to 3); ABG HCO3 23 mEq/L (21-27); ABG Oxygen Saturation 100 % (95-98); ABG PCO2 32 mmHg (35-45); ABG PH 7.47 pH Units (7.32-7.45); ABG PO2 164 mmHg (85-104); ABG TCO2 24 mEq/L (20-26)
[2021-03-08] MEDS: Piperacillin/Tazobactam 3.375 GM in 0.9 % Sodium Chloride Mini Bag 100 ML IVPB SCH ×4 (00:46→23:45)
[2021-03-08 01:28] LABS: Basophils % 0.2 %; Monocytes % 2.4 %; Red Cell Distribution Width 15.6 % (11.5-14.5)
[2021-03-08 01:29] LABS: Basophils # 0.1 K/mcL (0.0-0.2); Hematocrit 28.7 % (35.3-44.9); Hemoglobin 8.9 g/dL (11.5-15.4); Immature Granulocytes % 0.9 % (0-4); Lymphocytes % 2.3 %; Mean Corpuscular Hemoglobin 29.9 pg (28.0-33.3); Mean Corpuscular Volume 96.3 fL (83.0-100.0); Mean Platelet Volume 10.5 fL (9.4-12.4); Monocytes # 0.8 K/mcL (0.0-1.3); Neutrophils # 30.6 K/mcL (1.6-8.9); Platelet Count 348 K/mcL (140-400); Red Blood Count 2.98 M/mcL (3.82-4.97); Segmented Neutrophils % 94.2 %
[2021-03-08 01:33] LABS: Lymphocytes # 0.8 K/mcL (0.6-4.6)
[2021-03-08 01:34] LABS: INR 1.4; Prothrombin Time 15.3 Seconds (9.4-12.1)
[2021-03-08 01:35] LABS: White Blood Count 32.5 K/mcL (4.3-11.1)
[2021-03-08 01:40] LABS: Alanine Aminotransferase 103 Units/L (7-52); Albumin 2.4 g/dL (3.5-5.7); Albumin/Globulin Ratio 0.8 (1.1-2.2); Alkaline Phosphatase 164 Units/L (34-104); Aspartate Amino Transferase 101 Units/L (13-39); BUN/Creatinine Ratio 18 (6-26); Bilirubin,Total 0.5 mg/dL (0.3-1.0); Blood Urea Nitrogen 17 mg/dL (6-20); Calcium 8.7 mg/dL (8.6-10.3); Carbon Dioxide 22 mEq/L (23-29); Chloride 103 mEq/L (98-107); Globulin 3.2 g/dL (2.4-3.5); Glucose 96 mg/dL (70-105); Magnesium 1.6 mg/dL (1.6-2.6); Osmolality,Calculated 283 (280-300); Phosphorous 3.6 mg/dL (2.7-4.5); Potassium 3.9 mEq/L (3.5-5.1); Sodium 136 mEq/L (136-145); Total Protein 5.6 g/dL (6.4-8.9); eGFR For African Americans > 60 (> 60); eGFR For Non-African Americans > 60 (> 60)
[2021-03-08] MEDS ORDERED: Saliva Stimulant 44.3ml BOTTLE PO PRN (01:59)
[2021-03-08] MEDS ORDERED: Ringers Solution, Lactated 1,000 ML IVC SCH (01:59)
[2021-03-08 02:04] LABS: Platelet Estimate Normal (Normal); Toxic Granulation Present (Not Present)
[2021-03-08] MEDS ORDERED: *HR* OxyCODONE Immed Rel 5 MG TABLET PO PRN (02:08)
[2021-03-08] MEDS ORDERED: hydrOXYzine pamoate 25 MG CAPSULE PO PRN (02:13)
[2021-03-08] MEDS ORDERED: tiZANidine 4 MG TABLET PO PRN (02:14)
[2021-03-08] MEDS ORDERED: *HR* Promethazine 25 MG/ML VIAL IM PRN (02:17)
[2021-03-08 02:33] LABS: Thyroid Stimulating Hormone 2.427 mcIU/mL (0.340-5.600)
[2021-03-08 02:44] LABS: Folate 14.7 ng/mL (3.0-16.0)
[2021-03-08] MEDS ORDERED: Vancomycin 500 MG in 0.9 % Sodium Chloride Mini Bag 100 ML IVPB SCH (03:00)
[2021-03-08 05:54] LABS: Acinetobacter baumannii by PCR Not Detected (Not Detect); Candida albicans by PCR Not Detected (Not Detect); Candida glabrata by PCR Not Detected (Not Detect); Candida krusei by PCR Not Detected (Not Detect); Candida parapsilosis by PCR Not Detected (Not Detect); Candida tropicalis by PCR Not Detected (Not Detect); Enterobacter cloacae Cmplx PCR Not Detected (Not Detect); Enterobacteriaceae by PCR Not Detected (Not Detect); Enterococcus by PCR Not Detected (Not Detect); Escherichia coli by PCR Not Detected (Not Detect); Klebsiella oxytoca by PCR Not Detected (Not Detect); Klebsiella pneumoniae by PCR Not Detected (Not Detect); Proteus by PCR Not Detected (Not Detect); Pseudomonas aeruginosa by PCR Not Detected (Not Detect); Serratia marcescens by PCR Not Detected (Not Detect); Staphylococcus aureus by PCR Not Detected (Not Detect); Staphylococcus by PCR Not Detected (Not Detect); Streptococcus agalactiae(B)PCR DETECTED (Not Detect); Streptococcus pneumoniae PCR Not Detected (Not Detect); Streptococcus pyogenes (A) PCR Not Detected (Not Detect); blaKPC Carbapenem-Resist Gene Not Detected (Not Detect); mecA Methicillin-Resist Gene Not Detected (Not Detect); vanA/B Vancomycin-Resist Genes Not Detected (Not Detect)
[2021-03-08] MEDS: *HR* Enoxaparin 40 MG/0.4 ML SYRINGE SQ SCH (06:12)
[2021-03-08] MEDS: *HR* Dextrose 50 % in Water (Syg) 50 ML SYRINGE IVP PRN ×2 (06:47→13:10)
[2021-03-08] MEDS: Multivit/Ca/Min/Fe/FA 1 TAB TABLET PO SCH (09:02)
[2021-03-08] MEDS: BuPROPion XL (24 HR) 150 MG TABLET PO SCH (09:02)
[2021-03-08] MEDS: Chlorhexidine Rinse 15 ML MOUTHWASH MM SCH ×2 (09:02→20:58)
[2021-03-08] MEDS ORDERED: 0.9 % Sodium Chloride 1,000 ML ONE (09:21)
[2021-03-08] MEDS: 0.9 % Sodium Chloride 1,000 ML IVC SCH ×2 (09:51→20:08)
[2021-03-08 11:09] LABS: Ferritin 425 ng/mL (10-120); Iron < 10 mcg/dL (50-170)
[2021-03-09] MEDS: *HR* Enoxaparin 40 MG/0.4 ML SYRINGE SQ SCH (06:01)
[2021-03-09 08:00] LABS: BUN/Creatinine Ratio 21 (6-26); Blood Urea Nitrogen 15 mg/dL (6-20); Calcium 7.9 mg/dL (8.6-10.3); Carbon Dioxide 21 mEq/L (23-29); Chloride 116 mEq/L (98-107); Glucose 136 mg/dL (70-105); Osmolality,Calculated 279 (280-300); Potassium 3.1 mEq/L (3.5-5.1); Sodium 133 mEq/L (136-145); eGFR For African Americans > 60 (> 60); eGFR For Non-African Americans > 60 (> 60)
[2021-03-09] MEDS: 0.9 % Sodium Chloride 1,000 ML IVC SCH ×3 (08:05→20:45)
[2021-03-09] MEDS: Piperacillin/Tazobactam 3.375 GM in 0.9 % Sodium Chloride Mini Bag 100 ML IVPB SCH ×3 (08:10→23:06)
[2021-03-09] MEDS: Chlorhexidine Rinse 15 ML MOUTHWASH MM SCH ×2 (08:11→20:45)
[2021-03-09] MEDS: BuPROPion XL (24 HR) 150 MG TABLET PO SCH (08:11)
[2021-03-09] MEDS: Multivit/Ca/Min/Fe/FA 1 TAB TABLET PO SCH (08:11)
[2021-03-09 10:29] LABS: Basophils % 0.1 %; Eosinophils # 0.4 K/mcL (0.0-0.6); Eosinophils % 2.5 %; Hematocrit 25.5 % (35.3-44.9); Immature Granulocytes % 0.5 % (0-4); Lymphocytes % 4.2 %; Mean Corpuscular HGB Conc 31.4 g/dL (31.6-35.5); Mean Corpuscular Hemoglobin 30.4 pg (28.0-33.3); Mean Platelet Volume 10.7 fL (9.4-12.4); Monocytes # 0.4 K/mcL (0.0-1.3); Monocytes % 2.3 %; Neutrophils # 13.9 K/mcL (1.6-8.9); Platelet Count 265 K/mcL (140-400); Red Blood Count 2.63 M/mcL (3.82-4.97); Red Cell Distribution Width 15.7 % (11.5-14.5); Segmented Neutrophils % 90.4 %
[2021-03-09 10:30] LABS: Lymphocytes # 0.7 K/mcL (0.6-4.6); White Blood Count 15.4 K/mcL (4.3-11.1)
[2021-03-09] MEDS ORDERED: tiZANidine 4 MG TABLET GTUBE PRN (11:03)
[2021-03-09] MEDS ORDERED: Melatonin 3 MG TABLET GTUBE PRN (11:03)
[2021-03-09] MEDS ORDERED: Potassium Chloride Elixir 20 MEQ/15 ML UDC GTUBE ONE (13:00)
[2021-03-10 02:14] LABS: Alanine Aminotransferase 85 Units/L (7-52); Albumin/Globulin Ratio 0.7 (1.1-2.2); Alkaline Phosphatase 109 Units/L (34-104); Aspartate Amino Transferase 54 Units/L (13-39); BUN/Creatinine Ratio 24 (6-26); Bilirubin,Total 0.3 mg/dL (0.3-1.0); Blood Urea Nitrogen 15 mg/dL (6-20); Carbon Dioxide 21 mEq/L (23-29); Chloride 114 mEq/L (98-107); Globulin 2.9 g/dL (2.4-3.5); Glucose 125 mg/dL (70-105); Magnesium 1.7 mg/dL (1.6-2.6); Osmolality,Calculated 294 (280-300); Phosphorous 1.8 mg/dL (2.7-4.5); Potassium 3.5 mEq/L (3.5-5.1); Sodium 141 mEq/L (136-145); Total Protein 4.9 g/dL (6.4-8.9); eGFR For African Americans > 60 (> 60); eGFR For Non-African Americans > 60 (> 60)
[2021-03-10 02:36] LABS: Basophils % 0.2 %; Eosinophils # 0.4 K/mcL (0.0-0.6); Eosinophils % 2.5 %; Hematocrit 25.1 % (35.3-44.9); Hemoglobin 7.9 g/dL (11.5-15.4); Immature Granulocytes % 0.8 % (0-4); Lymphocytes # 0.7 K/mcL (0.6-4.6); Lymphocytes % 4.6 %; Mean Corpuscular HGB Conc 31.5 g/dL (31.6-35.5); Mean Corpuscular Hemoglobin 30.5 pg (28.0-33.3); Mean Corpuscular Volume 96.9 fL (83.0-100.0); Mean Platelet Volume 11.2 fL (9.4-12.4); Monocytes # 0.4 K/mcL (0.0-1.3); Monocytes % 2.6 %; Neutrophils # 13.3 K/mcL (1.6-8.9); Platelet Count 241 K/mcL (140-400); Red Blood Count 2.59 M/mcL (3.82-4.97); Red Cell Distribution Width 15.6 % (11.5-14.5); Segmented Neutrophils % 89.3 %; White Blood Count 14.9 K/mcL (4.3-11.1)
[2021-03-10] MEDS: *HR* Enoxaparin 30 MG/0.3 ML SYRINGE SQ SCH (05:11)
[2021-03-10] MEDS ORDERED: Piperacillin/Tazobactam 3.375 GM VIAL ONE (09:24)
[2021-03-10] MEDS: Multivitamin Liquid 15 ML UDC GTUBE SCH (09:26)
[2021-03-10] MEDS: Chlorhexidine Rinse 15 ML MOUTHWASH MM SCH ×2 (09:27→20:54)
[2021-03-10] MEDS: Piperacillin/Tazobactam 3.375 GM in 0.9 % Sodium Chloride Mini Bag 100 ML IVPB SCH ×3 (09:27→23:38)
[2021-03-10] MEDS ORDERED: Potassium Phosphate 44 MEQ in 0.9 % Sodium Chloride 250 ML IVPB ONE (10:17)
[2021-03-11 03:35] LABS: Basophils % 0.1 %; Eosinophils # 0.2 K/mcL (0.0-0.6); Eosinophils % 1.3 %; Hemoglobin 7.5 g/dL (11.5-15.4); Immature Granulocytes % 0.6 % (0-4); Lymphocytes # 0.8 K/mcL (0.6-4.6); Lymphocytes % 5.4 %; Mean Corpuscular Hemoglobin 29.6 pg (28.0-33.3); Mean Corpuscular Volume 98.8 fL (83.0-100.0); Monocytes # 0.7 K/mcL (0.0-1.3); Monocytes % 4.6 %; Neutrophils # 13.2 K/mcL (1.6-8.9); Platelet Count 252 K/mcL (140-400); Red Blood Count 2.53 M/mcL (3.82-4.97); Red Cell Distribution Width 15.9 % (11.5-14.5)
[2021-03-11 03:48] LABS: BUN/Creatinine Ratio 27 (6-26); Blood Urea Nitrogen 16 mg/dL (6-20); Calcium 7.9 mg/dL (8.6-10.3); Carbon Dioxide 24 mEq/L (23-29); Chloride 113 mEq/L (98-107); Glucose 124 mg/dL (70-105); Osmolality,Calculated 297 (280-300); Potassium 3.8 mEq/L (3.5-5.1); Sodium 142 mEq/L (136-145); eGFR For African Americans > 60 (> 60); eGFR For Non-African Americans > 60 (> 60)
[2021-03-11] MEDS: *HR* Enoxaparin 30 MG/0.3 ML SYRINGE SQ SCH (05:47)
[2021-03-11] MEDS: Piperacillin/Tazobactam 3.375 GM in 0.9 % Sodium Chloride Mini Bag 100 ML IVPB SCH ×2 (09:31→16:39)
[2021-03-11] MEDS: Multivitamin Liquid 15 ML UDC GTUBE SCH (09:31)
[2021-03-11] MEDS: Chlorhexidine Rinse 15 ML MOUTHWASH MM SCH ×2 (09:31→20:46)
[2021-03-11 15:01] LABS: Transferrin 99 mg/dL (200-400)
[2021-03-12] MEDS: Piperacillin/Tazobactam 3.375 GM in 0.9 % Sodium Chloride Mini Bag 100 ML IVPB SCH ×4 (00:18→23:58)
[2021-03-12 01:43] LABS: Basophils % 0.1 %; Eosinophils # 0.4 K/mcL (0.0-0.6); Eosinophils % 2.9 %; Hematocrit 25.1 % (35.3-44.9); Hemoglobin 7.7 g/dL (11.5-15.4); Immature Granulocytes % 0.5 % (0-4); Lymphocytes # 1.2 K/mcL (0.6-4.6); Lymphocytes % 8.6 %; Mean Corpuscular HGB Conc 30.7 g/dL (31.6-35.5); Mean Corpuscular Hemoglobin 29.5 pg (28.0-33.3); Mean Corpuscular Volume 96.2 fL (83.0-100.0); Mean Platelet Volume 11.3 fL (9.4-12.4); Monocytes # 0.6 K/mcL (0.0-1.3); Monocytes % 4.6 %; Neutrophils # 11.4 K/mcL (1.6-8.9); Platelet Count 248 K/mcL (140-400); Red Blood Count 2.61 M/mcL (3.82-4.97); Red Cell Distribution Width 15.9 % (11.5-14.5); Segmented Neutrophils % 83.3 %; White Blood Count 13.7 K/mcL (4.3-11.1)
[2021-03-12 02:08] LABS: BUN/Creatinine Ratio 28 (6-26); Blood Urea Nitrogen 15 mg/dL (6-20); Calcium 7.9 mg/dL (8.6-10.3); Carbon Dioxide 22 mEq/L (23-29); Chloride 111 mEq/L (98-107); Glucose 119 mg/dL (70-105); Osmolality,Calculated 296 (280-300); Potassium 4.1 mEq/L (3.5-5.1); Sodium 142 mEq/L (136-145); eGFR For African Americans > 60 (> 60); eGFR For Non-African Americans > 60 (> 60)
[2021-03-12] MEDS: *HR* Enoxaparin 30 MG/0.3 ML SYRINGE SQ SCH (05:19)
[2021-03-12] MEDS: Multivitamin Liquid 15 ML UDC GTUBE SCH (07:41)
[2021-03-12] MEDS: Chlorhexidine Rinse 15 ML MOUTHWASH MM SCH ×2 (07:47→20:22)
[2021-03-13] MEDS: *HR* Enoxaparin 30 MG/0.3 ML SYRINGE SQ SCH (05:24)
[2021-03-13 06:16] LABS: Basophils % 0.3 %; Eosinophils # 0.9 K/mcL (0.0-0.6); Eosinophils % 7.5 %; Hematocrit 27.6 % (35.3-44.9); Hemoglobin 8.2 g/dL (11.5-15.4); Immature Granulocytes % 0.7 % (0-4); Lymphocytes # 1.1 K/mcL (0.6-4.6); Lymphocytes % 9.5 %; Mean Corpuscular HGB Conc 29.7 g/dL (31.6-35.5); Mean Corpuscular Hemoglobin 28.7 pg (28.0-33.3); Mean Corpuscular Volume 96.5 fL (83.0-100.0); Mean Platelet Volume 11.3 fL (9.4-12.4); Monocytes # 0.5 K/mcL (0.0-1.3); Monocytes % 4.4 %; Neutrophils # 9.3 K/mcL (1.6-8.9); Platelet Count 287 K/mcL (140-400); Red Blood Count 2.86 M/mcL (3.82-4.97); Red Cell Distribution Width 15.9 % (11.5-14.5); Segmented Neutrophils % 77.6 %; White Blood Count 11.9 K/mcL (4.3-11.1)
[2021-03-13 06:37] LABS: BUN/Creatinine Ratio 30 (6-26); Blood Urea Nitrogen 18 mg/dL (6-20); Calcium 8.1 mg/dL (8.6-10.3); Carbon Dioxide 25 mEq/L (23-29); Chloride 111 mEq/L (98-107); Glucose 120 mg/dL (70-105); Osmolality,Calculated 295 (280-300); Potassium 4.4 mEq/L (3.5-5.1); Sodium 141 mEq/L (136-145); eGFR For African Americans > 60 (> 60); eGFR For Non-African Americans > 60 (> 60)
[2021-03-13] MEDS: Piperacillin/Tazobactam 3.375 GM in 0.9 % Sodium Chloride Mini Bag 100 ML IVPB SCH ×2 (07:52→16:37)
[2021-03-13] MEDS: Multivitamin Liquid 15 ML UDC GTUBE SCH (07:52)
[2021-03-13] MEDS: Chlorhexidine Rinse 15 ML MOUTHWASH MM SCH ×2 (08:01→20:08)
[2021-03-14] MEDS: Piperacillin/Tazobactam 3.375 GM in 0.9 % Sodium Chloride Mini Bag 100 ML IVPB SCH ×3 (00:16→15:43)
[2021-03-14 02:24] LABS: Basophils % 0.3 %; Eosinophils % 9.1 %; Hematocrit 23.3 % (35.3-44.9); Hemoglobin 7.2 g/dL (11.5-15.4); Immature Granulocytes % 0.4 % (0-4); Lymphocytes # 1.8 K/mcL (0.6-4.6); Lymphocytes % 15.4 %; Mean Corpuscular HGB Conc 30.9 g/dL (31.6-35.5); Mean Corpuscular Hemoglobin 29.1 pg (28.0-33.3); Mean Corpuscular Volume 94.3 fL (83.0-100.0); Monocytes # 0.7 K/mcL (0.0-1.3); Monocytes % 6.3 %; Neutrophils # 7.8 K/mcL (1.6-8.9); Platelet Count 307 K/mcL (140-400); Red Blood Count 2.47 M/mcL (3.82-4.97); Red Cell Distribution Width 16.3 % (11.5-14.5); Segmented Neutrophils % 68.5 %; White Blood Count 11.4 K/mcL (4.3-11.1)
[2021-03-14 02:48] LABS: Alanine Aminotransferase 61 Units/L (7-52); Albumin 2.2 g/dL (3.5-5.7); Albumin/Globulin Ratio 0.8 (1.1-2.2); Alkaline Phosphatase 94 Units/L (34-104); Aspartate Amino Transferase 24 Units/L (13-39); BUN/Creatinine Ratio 27 (6-26); Bilirubin,Total 0.2 mg/dL (0.3-1.0); Blood Urea Nitrogen 17 mg/dL (6-20); Calcium 7.9 mg/dL (8.6-10.3); Carbon Dioxide 22 mEq/L (23-29); Chloride 112 mEq/L (98-107); Globulin 2.9 g/dL (2.4-3.5); Glucose 102 mg/dL (70-105); Osmolality,Calculated 296 (280-300); Potassium 4.1 mEq/L (3.5-5.1); Sodium 142 mEq/L (136-145); Total Protein 5.1 g/dL (6.4-8.9); eGFR For African Americans > 60 (> 60); eGFR For Non-African Americans > 60 (> 60)
[2021-03-14] MEDS: *HR* Enoxaparin 30 MG/0.3 ML SYRINGE SQ SCH (05:24)
[2021-03-14] MEDS: Multivitamin Liquid 15 ML UDC GTUBE SCH (07:48)
[2021-03-14] MEDS: Chlorhexidine Rinse 15 ML MOUTHWASH MM SCH (07:48)
[2021-03-14] MEDS ORDERED: 0.9 % Sodium Chloride 250 ML IVC SCH (12:45)
[2021-03-14 14:31] LABS: % Iron Saturation 13 % (15-50); Iron 23 mcg/dL (50-170); Transferrin 131 mg/dL (203-362)
[2021-03-14 14:56] LABS: Folate 7.8 ng/mL (3.0-16.0)
[2021-03-15] MEDS: Nystatin POWDER 30 GM BOTTLE TP SCH ×3 (01:13→20:25)
[2021-03-15] MEDS: Piperacillin/Tazobactam 3.375 GM in 0.9 % Sodium Chloride Mini Bag 100 ML IVPB SCH ×4 (01:14→23:18)
[2021-03-15 03:59] LABS: Basophils % 0.4 %; Eosinophils # 0.7 K/mcL (0.0-0.6); Eosinophils % 8.3 %; Hematocrit 23.1 % (35.3-44.9); Hemoglobin 7.1 g/dL (11.5-15.4); Immature Granulocytes % 0.4 % (0-4); Lymphocytes # 1.4 K/mcL (0.6-4.6); Lymphocytes % 17.1 %; Mean Corpuscular HGB Conc 30.7 g/dL (31.6-35.5); Mean Corpuscular Hemoglobin 29.5 pg (28.0-33.3); Mean Corpuscular Volume 95.9 fL (83.0-100.0); Mean Platelet Volume 10.8 fL (9.4-12.4); Monocytes # 0.6 K/mcL (0.0-1.3); Neutrophils # 5.4 K/mcL (1.6-8.9); Platelet Count 348 K/mcL (140-400); Red Blood Count 2.41 M/mcL (3.82-4.97); Red Cell Distribution Width 16.1 % (11.5-14.5); Segmented Neutrophils % 66.8 %; White Blood Count 8.1 K/mcL (4.3-11.1)
[2021-03-15 04:19] LABS: BUN/Creatinine Ratio 25 (6-26); Blood Urea Nitrogen 17 mg/dL (6-20); Calcium 7.9 mg/dL (8.6-10.3); Carbon Dioxide 26 mEq/L (23-29); Chloride 110 mEq/L (98-107); Glucose 100 mg/dL (70-105); Osmolality,Calculated 296 (280-300); Potassium 4.1 mEq/L (3.5-5.1); Sodium 142 mEq/L (136-145); eGFR For African Americans > 60 (> 60); eGFR For Non-African Americans > 60 (> 60)
[2021-03-15] MEDS: Multivitamin Liquid 15 ML UDC GTUBE SCH (09:08)
[2021-03-15] MEDS ORDERED: SODIUM CHLORIDE/NAHCO3/KCL/PEG 4,000 ML SOLN.RECON GTUBE ONE (17:00)
[2021-03-16] MEDS: *HR* Dextrose 50 % in Water (Syg) 50 ML SYRINGE IVP PRN ×2 (06:46→16:12)
[2021-03-16] MEDS: Piperacillin/Tazobactam 3.375 GM in 0.9 % Sodium Chloride Mini Bag 100 ML IVPB SCH ×2 (08:31→16:12)
[2021-03-16] MEDS ORDERED: *HR* Propofol 200 MG/20 ML VIAL IVP ONE (09:20)
[2021-03-16] MEDS ORDERED: Lidocaine -MPF 2% 5 ML VIAL ONE (09:20)
[2021-03-16 11:03] VITALS: O2SAT 92
[2021-03-16] MEDS: Nystatin POWDER 30 GM BOTTLE TP SCH (11:13)
[2021-03-16] MEDS: Multivitamin Liquid 15 ML UDC GTUBE SCH (11:13)
[2021-03-16 14:05] LABS: Basophils # 0.1 K/mcL (0.0-0.2); Basophils % 0.5 %; Eosinophils # 0.5 K/mcL (0.0-0.6); Eosinophils % 4.5 %; Hematocrit 24.4 % (35.3-44.9); Hemoglobin 7.5 g/dL (11.5-15.4); Immature Granulocytes % 0.3 % (0-4); Lymphocytes # 1.3 K/mcL (0.6-4.6); Lymphocytes % 13.1 %; Mean Corpuscular HGB Conc 30.7 g/dL (31.6-35.5); Mean Corpuscular Hemoglobin 29.4 pg (28.0-33.3); Mean Corpuscular Volume 95.7 fL (83.0-100.0); Mean Platelet Volume 10.3 fL (9.4-12.4); Monocytes # 0.7 K/mcL (0.0-1.3); Monocytes % 6.8 %; Neutrophils # 7.5 K/mcL (1.6-8.9); Platelet Count 422 K/mcL (140-400); Red Blood Count 2.55 M/mcL (3.82-4.97); Red Cell Distribution Width 16.2 % (11.5-14.5); Segmented Neutrophils % 74.8 %; White Blood Count 10.1 K/mcL (4.3-11.1)
[2021-03-16 14:24] LABS: BUN/Creatinine Ratio 17 (6-26); Blood Urea Nitrogen 11 mg/dL (6-20); Calcium 8.5 mg/dL (8.6-10.3); Carbon Dioxide 25 mEq/L (23-29); Chloride 107 mEq/L (98-107); Glucose 61 mg/dL (70-105); Osmolality,Calculated 281 (280-300); Potassium 3.9 mEq/L (3.5-5.1); Sodium 137 mEq/L (136-145); eGFR For African Americans > 60 (> 60); eGFR For Non-African Americans > 60 (> 60)
[2021-03-16 15:32] LABS: Adenovirus Not Detected (Not Detect); Bordetella Pertussis Not Detected (Not Detect); Chlamydophila pneumoniae Not Detected (Not Detect); Coronavirus 229E Not Detected (Not Detect); Coronavirus HKU1 Not Detected (Not Detect); Coronavirus NL63 Not Detected (Not Detect); Coronavirus OC43 Not Detected (Not Detect); Human Metapneumovirus Not Detected (Not Detect); Human Rhinovirus/Enterovirus Not Detected (Not Detect); Influenza A Subtype 2009 H1 Not Detected (Not Detect); Influenza B Not Detected (Not Detect); Mycoplasma pneumoniae Not Detected (Not Detect); Parainfluenza Virus 1 Not Detected (Not Detect); Parainfluenza Virus 2 Not Detected (Not Detect); Parainfluenza Virus 3 Not Detected (Not Detect); Parainfluenza Virus 4 Not Detected (Not Detect); Respiratory Syncytial Virus Not Detected (Not Detect); SARS-CoV-2 Not Detected (Not Detect)
[2021-03-16] MEDS ORDERED: levoFLOXacin 750 MG TABLET PO SCH (16:00)
[2021-03-16 16:02] VITALS: BP 136/80; PULSE 89; TEMP 98
[2021-03-16] MEDS ORDERED: Ferrous Sulfate Oral Soln 300 MG/5 ML UDC GTUBE SCH (17:00)
[2021-03-16] MEDS ORDERED: metroNIDAZOLE 500 MG TABLET PO SCH (21:00)
== END 2021-03-16 19:16 | DRG 698 ==
LOC: SUATTDRO → EMEROOARM 14:21 → 3ANU 14:21 → 2ANU 14:21 → SUATTDRO 21:55 → 2ANU 22:10
PROVIDERS: ADMIT Internal Medicine; ATTEND General Practice